=== PATIENT | male | born 1950 | race Caucasian/White ===

== ENCOUNTER → 2020-05-07 13:54 | Outpatient (BNVA) | payer MEDICARE, MEDICAID, SELFPAY | PROVIDERS: PCP Internal Medicine; Referring Provider Internal Medicine; Visit Provider Internal Medicine Cardiovascular Disease | DX: I25.118 Atherosclerotic heart disease of native coronary artery with other forms of angina pectoris (principal); I10 Essential (primary) hypertension; Z79.02 Long term (current) use of antithrombotics/antiplatelets; Z98.62 Peripheral vascular angioplasty status | CPT/HCPCS: 99214 ==

== ENCOUNTER → 2020-11-02 12:48 | Outpatient (BNVA) | payer MEDICARE, MEDICAID, SELFPAY | PROVIDERS: PCP Internal Medicine; Visit Provider Internal Medicine Cardiovascular Disease | DX: I10 Essential (primary) hypertension (principal); I20.8 Other forms of angina pectoris | CPT/HCPCS: 93005; 99212 ==

== ENCOUNTER 2020-11-26 08:49 | Outpatient (REF) | payer MEDICARE, MEDICAID, SELFPAY ==
[2020-11-26 11:44] LABS: Hematocrit 42.4 % (42-52); Hemoglobin 14.2 g/dl (14.0-18.0); Mean Corpuscular HGB Conc 33.5 g/dl (31.0-36.0); Mean Corpuscular Hemoglobin 30.9 pg (27.0-33.0); Mean Corpuscular Volume 92.4 fL (80-98); Mean Platelet Volume 10.3 fL (9.4-12.4); Platelet Count 194 X10*3/uL (160-400); Red Blood Count 4.59 X10*6/uL (4.60-5.80); Red Cell Distribution Width 12.2 % (11.0-16.0); White Blood Count 5.3 X10*3/uL (4.8-10.8)
[2020-11-26 12:21] LABS: Alanine Aminotransferase 21 U/L (0-40); Albumin Level 4.3 g/dL (3.5-5.0); Alkaline Phosphatase 69 U/L (39-117); Anion Gap 13 (12-20); Aspartate Amino Transferase 20 U/L (5-37); Bilirubin Total 1.2 mg/dL (0.0-1.0); Blood Urea Nitrogen 12 mg/dL (9-16); Calcium 9.3 mg/dL (8.4-10.2); Carbon Dioxide 27 mmol/L (22-29); Chloride 104 mmol/L (96-108); Cholesterol 210 mg/dL; Estimated Glomerular Filt Rate > 60; Glucose Fasting 85 mg/dL (60-99); HDL Cholesterol 52 mg/dL; Iron 80 mcg/dL (45-160); LDL Cholesterol Calculated 148 mg/dl; Percent Iron Saturation 30 % (15-50); Sodium 140 mmol/L (135-145); Total Iron Binding Capacity 268 mcg/dL (228-428); Total Protein 7.3 g/dL (6.5-8.0); Triglycerides 50 mg/dL; Unsaturated Iron Binding 188 ug/dL
== END 2020-11-26 08:50 | disposition home or self-care (01) ==
LOC: HO.HMGCLDS 08:49
PROVIDERS: PCP Internal Medicine; Visit Provider Internal Medicine
DX: I25.10 Atherosclerotic heart disease of native coronary artery without angina pectoris (principal); I10 Essential (primary) hypertension; I20.8 Other forms of angina pectoris
CPT/HCPCS: 36415; 80053; 80061; 83540; 85027

== ENCOUNTER 2021-04-05 08:30 | Outpatient (REF) | payer MEDICARE, MEDICAID, SELFPAY ==
[2021-04-05 11:51] LABS: Cholesterol 161 mg/dL; HDL Cholesterol 53 mg/dL; LDL Cholesterol Calculated 99 mg/dl; Triglycerides 47 mg/dL
[2021-04-09 15:40] LABS: Transglutaminase IgA 1 U/mL
[2021-04-12 23:01] LABS: Endomysial IgA Antibody Negative (Negative)
== END 2021-04-05 08:31 | disposition home or self-care (01) ==
LOC: HO.HMGCLDS 08:30
PROVIDERS: PCP Internal Medicine; Visit Provider Internal Medicine
DX: K90.0 Celiac disease (principal); E78.5 Hyperlipidemia, unspecified
CPT/HCPCS: 36415; 80061; 83516; 86255; 86256

== ENCOUNTER → 2021-05-05 12:31 | Outpatient (BNVA) | payer MEDICARE, MEDICAID, SELFPAY | PROVIDERS: PCP Internal Medicine; Referring Provider Internal Medicine; Visit Provider Internal Medicine Cardiovascular Disease | DX: I25.10 Atherosclerotic heart disease of native coronary artery without angina pectoris (principal); I10 Essential (primary) hypertension | CPT/HCPCS: 99212 ==

== ENCOUNTER → 2021-05-12 08:24 | Outpatient (REF) | payer MEDICARE, MEDICAID, SELFPAY ==
--- NOTE | ~2021-05-12 | NM_ITS ---
Myocardial perfusion study Indication: Chest discomfort with prior CAD to evaluate for myocardial ischemia Technique: The patient was brought in for a Lexiscan perfusion study on 05/12/2021. Patient performed low-level exercise and was injected 0.4 mg of Lexiscan intravenously. Within a minute of injection, 25 mCi of sestamibi was given intravenously. Images were obtained using the SPECT gamma camera interlaced with the gating device. Images were obtained in supine position. Resting perfusion study was performed on 05/13/2021. Patient was administered 25 mCi of sestamibi intravenously at rest. Images were then obtained in supine position. Images obtained with and without CT attenuation. Total DLP 72 mGy-cm. Images were processed with the software and compared side to side in short axis, horizontal long axis and vertical long axis views. Findings: The stress perfusion study showed nonattenuated images show moderately reduced uptake in the basal and mid inferoseptal wall, mildly reduced uptake in the septum minimally reduced uptake in the basal anterior wall of the LV myocardium. Remainder of the LV myocardium is normally perfused, attenuation corrected images show mildly reduced uptake in the septum and minimally reduced uptake in the anterior wall of the LV myocardium.. The gated study shows normal LV systolic function with calculated LVEF of 55%. LV cavity is mildly dilated size. The gated study shows normal wall thickening and contraction of segments. Resting study shows nontender images show improved uptake in the septum and the basal anterior wall of the LV myocardium.. Gating at rest reveals normal cyst colic wall motion with ejection fraction at 55%. The findings are consistent with mild intensity inferoseptal and septal ischemia as well as subtle basal anterior ischemia. NM/NM cardiolite stress test Impression: 1. Myocardial perfusion imaging study shows inferoseptal and septal ischemia in LAD territory 2. Gated LVEF is 55% 3. Transient ischemic dilatation not present EKG is nondiagnostic for ischemia
--- NOTE | 2021-05-12 08:27 | CA_ITS ---
Acquisition Time: 2021-05-12 08:31:45 Total Exercise Time: 00:02:00 Test Indications: Screening for CAD Medications: AMLODIPINE/OLMESARTEN ASA CLONAZAPAM GABAPENTIN BUDESONIDE/FORMOTEROL ROSUVASTATIN Protocol: LEXISCAN Max HR: 086 BPM 56% of Pred: 151 BPM Max BP: 144/076 mmHG Max Work Load: 1.0 METS Test ordered as exercise nuclear stress test, when patient walked up onto [facility] was noted to have a rate related LBBB. Testing was then changed to a pharmacological nuclear stress test with Lexiscan while sitting, without anginal symptoms, with rate related LBBB, with normotensive response to injection, with nondiagnostic EKG for ischemia. Nuclear images pending. Test reviewed with Dr Williamson. Referred By: Isaias Yung Overread By: MERRILL TAYLOR
== END ==
LOC: HO.CARD 08:24
PROVIDERS: PCP Internal Medicine; Visit Provider Internal Medicine Cardiovascular Disease
DX: I25.10 Atherosclerotic heart disease of native coronary artery without angina pectoris (principal)
CPT/HCPCS: 78452; 93017; A9500; J0280; J2785

== ENCOUNTER 2021-05-27 10:55 | Outpatient (REF) | payer MEDICARE, MEDICAID, SELFPAY ==
[2021-05-27 11:07] LABS: MANUAL DIFF FLAG NO
[2021-05-27 11:36] LABS: Basophils Percent Auto 0.2 % (0-2); Eosinophils Absolute Auto 0.1 X10*3/uL (0.0-0.4); Eosinophils Percent Auto 1.3 % (0-4); Hemoglobin 14.8 g/dl (14.0-18.0); Imm Gran Abs Auto 0.02 X10*3/uL (0.00-0.03); Imm Gran Pct Auto 0.4 % (0.0-0.4); Lymphocytes Absolute Auto 0.9 X10*3/uL (1.2-4.9); Mean Corpuscular HGB Conc 34.4 g/dl (31.0-36.0); Mean Corpuscular Hemoglobin 31.6 pg (27.0-33.0); Mean Corpuscular Volume 91.7 fL (80.0-98.0); Mean Platelet Volume 9.7 fL (9.4-12.4); Monocytes Absolute Auto 0.4 X10*3/uL (0.1-1.2); Monocytes Percent Auto 9.6 % (2-11); Neutrophils Absolute Auto 3.05 x10*3/uL (2.0-8.3); Neutrophils Percent Auto 68.5 % (45-73); Platelet Count 184 X10*3/uL (160-400); Red Blood Count 4.69 X10*6/uL (4.60-5.80); Red Cell Distribution Width 12.6 % (11.0-16.0); White Blood Count 4.5 X10*3/uL (4.8-10.8)
[2021-05-27 11:46] LABS: INTERNATIONAL NORM RATIO 1.2 (0.9-1.1); Prothrombin Time 13.6 SEC (9.9-13.0)
[2021-05-27 12:04] LABS: Anion Gap 11 (12-20); Blood Urea Nitrogen 12 mg/dL (9-16); Calcium 9.8 mg/dL (8.4-10.2); Carbon Dioxide 29 mmol/L (22-29); Chloride 107 mmol/L (96-108); Estimated Glomerular Filt Rate > 60; Glucose Fasting 106 mg/dL (60-99); Potassium 4.1 mmol/L (3.3-5.1); Sodium 143 mmol/L (135-145)
== END 2021-05-27 10:56 | disposition home or self-care (01) ==
LOC: HO.LAB 10:55
PROVIDERS: PCP Internal Medicine; Visit Provider Internal Medicine Cardiovascular Disease
DX: I25.10 Atherosclerotic heart disease of native coronary artery without angina pectoris (principal)
CPT/HCPCS: 36415; 80048; 85025; 85610

== ENCOUNTER → 2021-08-19 12:58 | Outpatient (BNVA) | payer MEDICARE, MEDICAID, SELFPAY | PROVIDERS: PCP Internal Medicine; Referring Provider Internal Medicine; Visit Provider Internal Medicine Cardiovascular Disease | DX: I25.10 Atherosclerotic heart disease of native coronary artery without angina pectoris (principal); I10 Essential (primary) hypertension | CPT/HCPCS: 93005; 99212 ==

== ENCOUNTER 2021-08-30 13:03 | Day surgery (SDC) | payer MEDICARE, MEDICAID, SELFPAY ==
[2021-08-25 13:12] VITALS: BMI 21.4
--- NOTE | 2021-08-27 13:23 | HO.ANESPROP2 ---
Documented by User: Vivienne Dalal NP 08/27/21 13:25 HPI - Anesthesia Eval Consult details Narrative: 71yo M for ?Upper Endoscopy with Balloon Dilitation and Colonoscopy Stable at 07/2021 Cardiol visit: He had chest pain and abnormal stress test for which he underwent cardiac catheterization which showed patent stent in the LAD without any significant coronary disease.? He has been doing well and has no exertional chest discomfort.? No shortness of breath.? PMFSH Active Problems Active Problems: All Active Problems (Updated 08/25/21 @ 13:14 by Shiela Robles RN) Status post angioplasty (Acute) COPD (chronic obstructive pulmonary disease) (Acute) Abnormal stress test (Acute) Esophageal stricture (Acute) Celiac disease (Acute) Insomnia (Acute) Hyperlipidemia (Acute) Anxiety (Acute) Coronary artery disease (Acute) Stable angina (Acute) Hypertension (Acute) Past Medical History Medical History (Updated 08/25/21 @ 13:14 by Shiela Robles RN) Anxiety Celiac disease COPD (chronic obstructive pulmonary disease) Coronary artery disease COVID-19 vaccine series completed Esophageal stricture HTN (hypertension) Hyperlipidemia Hypertension Insomnia Stable angina Family History Family History Father Colon cancer Mother Cancer Paternal Grandfather Cancer Surgical History Surgical History (Updated 08/24/21 @ 15:47 by Shiela Robles RN) H/O colonoscopy History of coronary artery stent placement History of esophagogastroduodenoscopy (EGD) Social History Social History Housing: House Are you a primary critical care physician assistant to a significant other at home: No Do you presently have visiting nurse or other home services: No Patient Tobacco Use Status: Never used Tobacco Use of substances other than those prescribed or required for medical reasons: No Have you been hit, kicked, punched, or otherwise hurt by someone within the past year? If so, by whom?: No Are you DNR?: No Advance Directives: No (unknown) Advance Directives Information Provided: Yes (brochure mailed) Advance Directives on File: No Recently lost weight without trying: No Eating poorly because of decreased appetite: No Nutrition Risks: No Nutritional Risk Current occupational status: retired Meds Allergies Allergy/AdvReac Type Severity Reaction Status Date / Time atropine [ATROPINE] Allergy Unknown SEIZURE Verified 08/19/21 13:18 Home Medications Medication Instructions Recorded Confirmed Last Taken Type aspirin 81 mg tablet,delayed 81 mg PO DAILY 05/07/20 08/25/21 Unknown History release (Adult Low Dose Aspirin) clonazepam 1 mg tablet 1 mg PO BEDTIME 08/19/21 08/25/21 Unknown History gabapentin 300 mg capsule 300 mg PO DAILY PRN 08/19/21 08/25/21 Unknown History Exam Exam Date and Time: August 27, 2021 1323 Height,Weight and Vital Signs: Height 5 ft 7 in Weight 62.142 kg Pertinent Lab Results Pertinent Lab Results: Laboratory Tests 05/27/21 05/27/21 11:02 11:02 WBC 4.5 L Hgb 14.8 Hct 43.0 Plt Count 184 Sodium 143 Potassium 4.1 Chloride 107 Carbon Dioxide 29 BUN 12 Creatinine 1.18 Narrative Narrative: EKG 07/2021 Sinus rhythm 61 beats per minute, incomplete left bundle-branch block, left ventricular hypertrophy, QT interval 438 Assessment and Plan Assessment Anesthesia Assessment: Chart Reviewed Documented by User: Jim Lopez 08/30/21 16:45 PMFSH Past Medical History Medical History (Updated 08/25/21 @ 13:14 by Shiela Robles RN) Anxiety Celiac disease COPD (chronic obstructive pulmonary disease) Coronary artery disease COVID-19 vaccine series completed Esophageal stricture HTN (hypertension) Hyperlipidemia Hypertension Insomnia Stable angina Family History Family History Father Colon cancer Mother Cancer Paternal Grandfather Cancer Family history of problems with anesthesia: No Surgical History Surgical History (Updated 08/24/21 @ 15:47 by Shiela Robles RN) H/O colonoscopy History of coronary artery stent placement History of esophagogastroduodenoscopy (EGD) History of Problems with Anesthesia: No Social History Social History Housing: House Are you a primary critical care physician assistant to a significant other at home: No Do you presently have visiting nurse or other home services: No Patient Tobacco Use Status: Never used Tobacco Use of substances other than those prescribed or required for medical reasons: No Have you been hit, kicked, punched, or otherwise hurt by someone within the past year? If so, by whom?: No Are you DNR?: No Advance Directives: No (unknown) Advance Directives Information Provided: Yes (brochure mailed) Advance Directives on File: No Recently lost weight without trying: No Eating poorly because of decreased appetite: No Nutrition Risks: No Nutritional Risk Current occupational status: retired Meds Allergies Allergy/AdvReac Type Severity Reaction Status Date / Time atropine [ATROPINE] Allergy Unknown SEIZURE Verified 08/19/21 13:18 Home Medications Medication Instructions Recorded Confirmed Last Taken Type aspirin 81 mg tablet,delayed 81 mg PO DAILY 05/07/20 08/25/21 Unknown History release (Adult Low Dose Aspirin) clonazepam 1 mg tablet 1 mg PO BEDTIME 08/19/21 08/25/21 Unknown History gabapentin 300 mg capsule 300 mg PO DAILY PRN 08/19/21 08/25/21 Unknown History Exam Airway Mallampati Class: III Neck ROM: Full Denture: Upper and Lower Loose/Missing/Broken Teeth: Yes (Implants ) Heart: rrr Lungs: bl breath sounds Assessment and Plan Final Anesthetic Review Family History of Problems with Anesthesia: No History of Problems with Anesthesia: No NPO: Yes ASA Class: III Final Preanesthetic Review: Meds/Lorenzogs Chart Reviewed and Consent Obtained/Reviewed Patient Risk: High Procedure Risk: Intermediate Anesthetic Plan Anesthetic Plan: MAC: Disposition: Standard PACU
[2021-08-30 13:42] VITALS: BP 139/87; PULSE 71; RESP 18; TEMP 36.8; O2SAT 97
[2021-08-30] MEDS: Lactated Ringers 1,000 ML 80 ML IVCONT (14:30)
[2021-08-30 15:54] VITALS: BP 104/55; PULSE 49; RESP 20; TEMP 36.9; O2SAT 100
--- NOTE | 2021-08-30 15:55 | PM.OP ---
Brief Operative Note Date of Service: 08/30/21 Pre-op diagnosis: Dysphagia, Screening Post-op diagnosis: other (Esophagitis/Esophageal stricture, Gastric ulcers, Gastritis/Duodenitis, Diverticulosis) Procedure: EGD with biopsies and Balloon dilation with a 15-16.5-18mm esophageal balloon, Colonoscopy to the cecum and TI Surgeon: Santino Parisi Anesthesia: MAC Was an Photographic Equipment Inspector used for this Procedure?: No Estimated blood loss (mL): 3.0 Pathology: other (A. Gastric antrum B. Gastric ulcers C. EG Junction at 35cm) Condition: stable Disposition: PACU
[2021-08-30 16:10] VITALS: BP 116/72; PULSE 51; RESP 16; O2SAT 98
[2021-08-30 16:25] VITALS: BP 104/65; PULSE 49; RESP 16; TEMP 36.3; O2SAT 98
--- NOTE | 2021-08-31 01:22 | OP_ITS ---
SURGEON: Santino Parisi MD INDICATIONS: The patient presents for evaluation of dysphagia and previous history of esophageal stricture, as well as colorectal cancer screening and family history of colon cancer. Full consent has been obtained from him for both procedures, including risks of bleeding and perforation. PREOPERATIVE DIAGNOSIS: POSTOPERATIVE DIAGNOSIS: PROCEDURE PERFORMED: Esophagogastroduodenoscopy with biopsies, and balloon dilation of esophageal stricture, and colonoscopy of the cecum and terminal ileum. ESTIMATED BLOOD LOSS: COMPLICATIONS: ANESTHESIA: Medication used, monitored anesthesia care. ASSISTANTS: SPECIMENS: PREOPERATIVE DIAGNOSES: Dysphagia, family history of colon cancer, and colorectal cancer screening. POSTOPERATIVE DIAGNOSES: Dysphagia, family history of colon cancer, and colorectal cancer screening, gastric ulcers, esophagitis, esophageal stricture, hiatal hernia, gastritis, duodenitis, diverticulosis, and internal hemorrhoids. DESCRIPTION OF PROCEDURE: Patient was placed in the left lateral decubitus position. The Olympus video gastroscope was passed in the posterior oropharynx and upper esophagus under direct vision. The scope was passed slowly into the distal esophagus. The gastroesophageal junction appeared at 35 cm. This area was notable for edema, esophagitis, and a mild stricture. There was no evidence of any ulceration or mass. There was no gross evidence of Baker's mucosa. The scope did easily enter the stomach. There was a small hiatal hernia. The scope was advanced to pylorus and the duodenum was cannulated at the descending portion. The duodenum including the bulb was carefully inspected. There was evidence of erosive duodenitis in the duodenal bulb, but no ulceration, bleeding, nor mass. The scope was withdrawn back to the stomach. The gastric antrum and body had several shallow appearing ulcers with some surrounding edema and friability. There was also associated gastritis. The ulcer craters appeared clean, without any sign of visible vessel nor bleeding. They appeared to be grossly benign. There was good peristalsis. The scope was retroflexed, visualizing the proximal stomach carefully, which appeared normal, without any sign of mass or ulceration. Scope was straightened. Multiple biopsies were obtained in the gastric antrum. I also obtained multiple biopsies from the margins of the ulcers. The scope was withdrawn back in the esophagus. Given the symptomatology, I did use a [employer] incremental balloon to dilate the gastroesophageal junction from 15 mm to 16.5 mm to 18 mm at the recommended pressures for between 30 and 60 seconds each. Post dilation, there was heme noted and definite disruption of the stricture. I also obtained biopsies at the EG junction at 35 cm. The scope was then withdrawn from the patient. The remainder of the esophagus appeared normal. He tolerated the procedure well. He was turned around for the colonoscopy. The digital rectal exam revealed no abnormalities. The Olympus video pediatric colonoscope was entered into the rectum and advanced easily to the cecum. Once in the cecum, I did identify normal-appearing cecal pouch with appendiceal orifice and a normal-appearing ileocecal valve. The terminal ileum was cannulated and appeared normal. The scope was withdrawn back into the colon. The entire cecum and ileocecal valve appeared normal. The scope was slowly withdrawn, assessing all mucosal surfaces carefully. Preparation was excellent. I did not visualize any sign of polyps, colitis, or angiodysplasia. There was a mild amount of sigmoid diverticulosis. In the rectum, the scope was retroflexed, visualizing internal hemorrhoids, but no other pathology. The rectal mucosa appeared normal. The scope was straightened and withdrawn from the patient. He tolerated both procedures well and was returned to recovery area in stable condition. IMPRESSION: 1. Gastric ulcers. 2. Gastritis. 3. Duodenitis. 4. Hiatal hernia. 5. Esophagitis with esophageal stricture, status post balloon dilation. 6. Diverticulosis. 7. Internal hemorrhoids. PLAN: The results of the pathology will be checked. Given the findings in the upper endoscopy, I shall start him on omeprazole 40 mg daily as he does have to go back on his aspirin for his underlying coronary artery disease. If Helicobacter pylori is present in the gastric biopsies, I would recommend treating that as well. He was advised to continue omeprazole long-term and avoid all other NSAIDs. He was advised to see me in 2 to 3 months for a followup visit. Given the family history of colon cancer in his father, I would recommend a followup colonoscopy in 5 years for further screening as well. MD [facility] / [id number]
== END 2021-08-30 17:01 | disposition home or self-care (01) ==
PROVIDERS: PCP Internal Medicine; Visit Provider Internal Medicine
PROC: (CPT 43249; principal; 2021-08-30 14:00)
PROC: 0DJD8ZZ Inspection of Lower Intestinal Tract, Via Natural or Artificial Opening Endoscopic (ICD-10-PCS; CPT 45378; 2021-08-30 14:00)
DX: Z12.11 Encounter for screening for malignant neoplasm of colon (principal); Z80.0 Family history of malignant neoplasm of digestive organs; K57.30 Diverticulosis of large intestine without perforation or abscess without bleeding; K64.8 Other hemorrhoids; R13.19 Other dysphagia; K22.2 Esophageal obstruction; K25.9 Gastric ulcer, unspecified as acute or chronic, without hemorrhage or perforation; K29.50 Unspecified chronic gastritis without bleeding; K29.80 Duodenitis without bleeding; K20.80 Other esophagitis without bleeding; K44.9 Diaphragmatic hernia without obstruction or gangrene; I25.10 Atherosclerotic heart disease of native coronary artery without angina pectoris; Z98.61 Coronary angioplasty status; I10 Essential (primary) hypertension; J44.9 Chronic obstructive pulmonary disease, unspecified; E78.5 Hyperlipidemia, unspecified; Z79.51 Long term (current) use of inhaled steroids; Z79.82 Long term (current) use of aspirin; Z79.899 Other long term (current) drug therapy
CPT/HCPCS: 43249; 43239; G0105; 88305; 88342; C1726

== ENCOUNTER 2021-12-02 08:52 | Outpatient (REF) | payer MEDICARE, MEDICAID, SELFPAY ==
[2021-12-02 11:31] LABS: Hematocrit 42.4 % (42.0-52.0); Hemoglobin 14.3 g/dl (14.0-18.0); Mean Corpuscular HGB Conc 33.7 g/dl (31.0-36.0); Mean Platelet Volume 10.6 fL (9.4-12.4); Platelet Count 187 X10*3/uL (160-400); Red Blood Count 4.61 X10*6/uL (4.60-5.80); Red Cell Distribution Width 12.2 % (11.0-16.0); White Blood Count 4.5 X10*3/uL (4.8-10.8)
[2021-12-02 12:24] LABS: Vitamin D 25-OH Total 38.1 ng/mL (>30)
[2021-12-02 12:32] LABS: Alanine Aminotransferase 24 U/L (0-40); Albumin Level 4.3 g/dL (3.5-5.0); Alkaline Phosphatase 51 U/L (39-117); Anion Gap 14 (12-20); Aspartate Amino Transferase 23 U/L (5-37); Bilirubin Total 1.1 mg/dL (0.0-1.0); Blood Urea Nitrogen 15 mg/dL (9-16); Calcium 9.6 mg/dL (8.4-10.2); Carbon Dioxide 26 mmol/L (22-29); Chloride 106 mmol/L (96-108); Cholesterol 160 mg/dL; Estimated Glomerular Filt Rate > 60; Glucose Fasting 94 mg/dL (60-99); HDL Cholesterol 53 mg/dL; LDL Cholesterol Calculated 96 mg/dl; Potassium 4.8 mmol/L (3.3-5.1); Sodium 141 mmol/L (135-145); Total Protein 7.3 g/dL (6.5-8.0); Triglycerides 58 mg/dL
== END 2021-12-02 08:53 | disposition home or self-care (01) ==
LOC: HO.HMGCLDS 08:52
PROVIDERS: PCP Internal Medicine; Visit Provider Internal Medicine
DX: I25.10 Atherosclerotic heart disease of native coronary artery without angina pectoris (principal); E78.5 Hyperlipidemia, unspecified; I10 Essential (primary) hypertension; K22.2 Esophageal obstruction
CPT/HCPCS: 36415; 80053; 80061; 82306; 85027

== ENCOUNTER → 2022-04-25 10:53 | Outpatient (BNVA) | payer MEDICARE, MEDICAID, SELFPAY | PROVIDERS: PCP Internal Medicine; Referring Provider Internal Medicine; Visit Provider Internal Medicine Cardiovascular Disease | DX: I20.8 Other forms of angina pectoris (principal); I10 Essential (primary) hypertension; Z79.82 Long term (current) use of aspirin; Z79.899 Other long term (current) drug therapy | CPT/HCPCS: 93005; 99212 ==

== ENCOUNTER 2022-06-14 15:32 | Emergency (ER) | payer MEDICARE, MEDICAID, SELFPAY ==
[2022-06-14 15:35] VITALS: BP 173/93; PULSE 104; RESP 18; TEMP 37.3; O2SAT 96; BMI 23.7
--- NOTE | 2022-06-14 15:42 | ED.GENADULT ---
HPI - General Adult General Chief complaint: General Medical <Santino Boucher MD - Last Filed: 06/14/22 15:44> Stated complaint: +covid..fever headache cough <Santino Boucher MD - Last Filed: 06/14/22 15:44> Time Seen by Provider: 06/14/22 16:02 <Santino Boucher MD - Last Filed: 06/14/22 15:44> Source: patient <Kaylah Guadarrama NP - Last Filed: 06/14/22 17:16> Mode of arrival: ambulatory <Kaylah Guadarrama NP - Last Filed: 06/14/22 17:16> Limitations: no limitations <Kaylah Guadarrama NP - Last Filed: 06/14/22 17:16> History of Present Illness HPI narrative: 72-year-old male patient with past medical history COPD, CAD, hyperlipidemia, hypertension, and esophageal stricture presents to the emergency department today after testing positive for COVID with a home test. He states he has been feeling tired, has a cough, runny nose, vague body aches, nausea, and has been having fevers. Highest fever at home has been 100.5. He denies taking any medications as treatment prior to coming to the emergency department. Medication list verified with patient. Patient denies any history of liver or kidney disease. Currently he denies any chest pain, shortness of breath, chills, dizziness, changes in gait, changes in mental status, or vomiting. He states he is looking for treatment for COVID at the suggestion of his daughter who suggested he presents to the emergency department. Ariel safety information in fact she provided to patient for review. We will review current medications and possible side effects and contraindications to antiviral treatment. Monoclonal antibodies discussed with Pt also. <Kaylah Guadarrama NP - Last Filed: 06/14/22 17:16> Onset (ago): day(s) (2) <Kaylah Guadarrama NP - Last Filed: 06/14/22 17:16> Treatments prior to arrival: none <Kaylah Guadarrama NP - Last Filed: 06/14/22 17:16> Related Data Home medications: Home Medications Medication Instructions Recorded Confirmed aspirin 81 mg tablet,delayed 81 mg PO DAILY 05/07/20 04/25/22 release (Adult Low Dose Aspirin) clonazepam 1 mg tablet 1 mg PO BEDTIME 08/19/21 04/25/22 gabapentin 300 mg capsule 300 mg PO DAILY PRN Pain 08/19/21 04/25/22 omeprazole 20 mg capsule,delayed 20 mg PO DAILY 04/25/22 04/25/22 release Previous Rx's Medication Instructions Recorded rosuvastatin 40 mg tablet See Rx Instructions PO DAILY #90 01/19/21 tabs amlodipine 10 mg-olmesartan 40 mg 1 tab PO DAILY #90 tabs 04/27/22 tablet Symbicort 160 mcg-4.5 2 puff inhalation BID #10.2 grams 06/07/22 mcg/actuation HFA aerosol inhaler (budesonide-formoterol) acetaminophen 325 mg capsule 650 mg PO Q6H PRN fever or pain 7 06/14/22 (Tylenol) days #30 caps ibuprofen 400 mg tablet 400 mg PO Q8H #30 tabs 06/14/22 <Santino Boucher MD - Last Filed: 06/14/22 15:44> Allergies/adverse reactions: Allergies Allergy/AdvReac Type Severity Reaction Status Date / Time atropine [ATROPINE] Allergy Unknown SEIZURE Verified 04/25/22 10:56 <Santino Boucher MD - Last Filed: 06/14/22 15:44> Review of Systems Review of Systems: Yes all other systems are reviewed and are negative <Kaylah Guadarrama NP - Last Filed: 06/14/22 17:16> Constitutional: Constitutional: Reports no additional constitutional complaints, Reports body ache(s), Denies chills, Denies fatigue, Reports fever(s), Denies frequent falls, Reports headache(s), Denies poor appetite, Denies weight gain and Denies weight loss <Kaylah Guadarrama NP - Last Filed: 06/14/22 17:16> Eyes: Eyes: Reports no additional eye complaints, Denies change in vision and Denies loss of vision <Kaylah Guadarrama NP - Last Filed: 06/14/22 17:16> ENT: Reports system reviewed and no additional complaints, except as documented, Reports Normal hearing present, Denies vertigo, Denies dizziness, Reports headache(s), Reports nasal discharge and Denies disequilibrium <Kaylah Floresiennik, ADMISSIONS DIRECTOR - Last Filed: 06/14/22 17:16> Cardiovascular: Cardiovascular: Reports no additional cardiovascular complaints, Denies chest pain, Denies edema and Denies dyspnea <Kaylah Pluciennik, ADMISSIONS DIRECTOR - Last Filed: 06/14/22 17:16> Respiratory: Respiratory: Reports no additional respiratory complaints, Denies change in phlegm color, Denies chest congestion, Reports cough and Denies dyspnea <Kaylah Pluciennik, ADMISSIONS DIRECTOR - Last Filed: 06/14/22 17:16> Gastrointestinal: Gastrointestinal: Reports no additional gastrointestinal complaints, Denies constipation, Denies diarrhea, Reports nausea and Denies vomiting <Kaylah Pluciennik, ADMISSIONS DIRECTOR - Last Filed: 06/14/22 17:16> Genitourinary: Genitourinary: Reports no additional male genitourinary complaints <Kaylah Pluciennik, ADMISSIONS DIRECTOR - Last Filed: 06/14/22 17:16> Musculoskeletal: Musculoskeletal: Reports no additional musculoskeletal complaints, Reports myalgias, Reports arthralgias (baseline per patient), Denies numbness and Denies tingling <Kaylah Pluciennik, ADMISSIONS DIRECTOR - Last Filed: 06/14/22 17:16> Integumentary/Breasts: Skin/Breast: Reports system reviewed and no additional complaints, except as docu <Kaylah Pluciennik, ADMISSIONS DIRECTOR - Last Filed: 06/14/22 17:16> Neurologic: Reports system reviewed and no additional complaints, except as documented, Reports Normal hearing present, Denies vertigo, Denies dizziness, Denies frequent falls, Reports headache(s), Denies loss of vision, Denies memory loss, Denies numbness, Denies tingling, Denies tremor(s) and Denies disequilibrium <Kaylah Pluciennik, ADMISSIONS DIRECTOR - Last Filed: 06/14/22 17:16> Psychiatric: Psychiatric: Reports no additional psychiatric complaints and Denies memory loss <Kaylah Pluciennik, ADMISSIONS DIRECTOR - Last Filed: 06/14/22 17:16> Endocrine: Endocrine: Reports no additional endocrine complaints, Denies fatigue, Denies polyphagia, Denies polydipsia and Denies polyuria <Kaylah Pluciennik, ADMISSIONS DIRECTOR - Last Filed: 06/14/22 17:16> Hematologic/Lymphatic: Hematologic/Lymphatic: Reports no additional hematologic/lymphatic complaints <Kaylah Guadarrama NP - Last Filed: 06/14/22 17:16> [facility] Past Medical History Attestation statement: The following information was validated with the patient. <Kaylah Guadarrama NP - Last Filed: 06/14/22 17:16> Source: old records reviewed and obtained from family <Kaylah Guadarrama NP - Last Filed: 06/14/22 17:16> Medical History: Medical History Anxiety Celiac disease COPD (chronic obstructive pulmonary disease) Coronary artery disease COVID-19 vaccine series completed Esophageal stricture HTN (hypertension) Hyperlipidemia Hypertension Insomnia Stable angina <Santino Boucher MD - Last Filed: 06/14/22 15:44> Surgical History: Surgical History H/O colonoscopy History of coronary artery stent placement History of esophagogastroduodenoscopy (EGD) <Santino Boucher MD - Last Filed: 06/14/22 15:44> Family History Family History: Family History Father Colon cancer Mother Cancer Paternal Grandfather Cancer <Santino Boucher MD - Last Filed: 06/14/22 15:44> Social History Social History: Social History Housing: House Are you a primary respiratory care practitioner to a significant other at home: No Do you presently have visiting nurse or other home services: No Patient Tobacco Use Status: Never used Tobacco e-Cigarette/Vaping Use: Never Used Advance Directives: No Advance Directives Information Provided: No Current occupational status: retired Cognitive needs: No Hearing needs: No Vision needs: No <Santino Boucher MD - Last Filed: 06/14/22 15:44> Physical Exam ED Vital Signs: Vital Signs - 24 hr 06/14/22 15:35 06/14/22 16:34 Temperature 99.2 F Pulse Rate 104 H 100 Respiratory Rate 18 19 Blood Pressure 173/93 H 155/93 H Pulse Oximetry 96 94 Oxygen Delivery Method Room Air BMI result Body Mass Index 23.7 <Santino Boucher MD - Last Filed: 06/14/22 15:44> Vital Signs - 24 hr 06/14/22 15:35 06/14/22 16:34 Temperature 99.2 F Pulse Rate 104 H 100 Respiratory Rate 18 19 Blood Pressure 173/93 H 155/93 H Pulse Oximetry 96 94 Oxygen Delivery Method Room Air BMI result Body Mass Index 23.7 <Kaylah Guadarrama NP - Last Filed: 06/14/22 17:16> Const General: cooperative, comfortable, no acute distress, alert and awake <Kaylah Guadarrama NP - Last Filed: 06/14/22 17:16> Nutritional Appearance: well nourished <Kaylah Guadarrama NP - Last Filed: 06/14/22 17:16> Orientation/consciousness: patient oriented x3 <Kaylah Guadarrama NP - Last Filed: 06/14/22 17:16> Limitations: no limitations <Kaylah Guadarrama NP - Last Filed: 06/14/22 17:16> HENSC Head: Yes normal to inspection, Yes normocephalic and Yes atraumatic <Kaylah Guadarrama NP - Last Filed: 06/14/22 17:16> Ears: hearing grossly normal bilaterally and external ears normal <Kaylah Guadarrama NP - Last Filed: 06/14/22 17:16> General nose exam: Normal external nose present <Kaylah Guadarrama NP - Last Filed: 06/14/22 17:16> Face and sinus: Yes normal facial exam <Kaylah Guadarrama NP - Last Filed: 06/14/22 17:16> Mouth: Normal oral and palatal mucosa present <Kaylah Guadarrama NP - Last Filed: 06/14/22 17:16> Eyes General: appearance normal, both eyes and all related structures <Kaylah Guadarrama NP - Last Filed: 06/14/22 17:16> Alignment and Position: alignment normal <Kaylah Guadarrama NP - Last Filed: 06/14/22 17:16> Periorbital: periorbital findings normal <Kaylah Thierry, ADMISSIONS DIRECTOR - Last Filed: 06/14/22 17:16> Eyelids: Yes eyelids normal <Kaylah Thierry, ADMISSIONS DIRECTOR - Last Filed: 06/14/22 17:16> Conjunctivae: conjunctivae normal <Kaylah Thierry, ADMISSIONS DIRECTOR - Last Filed: 06/14/22 17:16> Sclerae: sclerae normal <Kaylah Thierry, ADMISSIONS DIRECTOR - Last Filed: 06/14/22 17:16> Pupils: Equal, round and reactive pupils present <Kaylah Thierry, ADMISSIONS DIRECTOR - Last Filed: 06/14/22 17:16> EOM: EOMs intact bilaterally <Kaylah Thierry, ADMISSIONS DIRECTOR - Last Filed: 06/14/22 17:16> Neck Neck: Yes normal visual inspection and Yes full ROM <Kaylah Thierry, ADMISSIONS DIRECTOR - Last Filed: 06/14/22 17:16> Chest Chest palpation & inspection: normal inspection of the chest <Kaylah Guadarrama, ADMISSIONS DIRECTOR - Last Filed: 06/14/22 17:16> Resp Effort & Inspection: normal respiratory effort and able to speak in complete sentences <Kaylah Guadarrama, ADMISSIONS DIRECTOR - Last Filed: 06/14/22 17:16> Auscultation: clear to auscultation bilaterally <Kaylahmelecio Guadarrama, ADMISSIONS DIRECTOR - Last Filed: 06/14/22 17:16> Cardio Rate: regular rate <Kaylah Guadarrama, ADMISSIONS DIRECTOR - Last Filed: 06/14/22 17:16> Rhythm: regular rhythm <Kaylah Thierry, ADMISSIONS DIRECTOR - Last Filed: 06/14/22 17:16> GI Inspection: Yes normal to inspection <Kaylah Thierry, ADMISSIONS DIRECTOR - Last Filed: 06/14/22 17:16> Auscultation: normal bowel sounds <Kaylah Thierry, ADMISSIONS DIRECTOR - Last Filed: 06/14/22 17:16> Back/Spine/Pelvis Cervical Spine: cervical ROM normal <Kaylah Thierry, ADMISSIONS DIRECTOR - Last Filed: 06/14/22 17:16> Thoracic/Lumbar Spine: thoraco-lumbar ROM normal <Kaylah Sandraannereginaldo, ADMISSIONS DIRECTOR - Last Filed: 06/14/22 17:16> Skin General skin exam: no rashes or lesions noted <Kaylah Sandraannereginaldo, ADMISSIONS DIRECTOR - Last Filed: 06/14/22 17:16> Neuro General: patient oriented x3, gait normal and moves all extremities <Kaylah Sandraannereginaldo, ADMISSIONS DIRECTOR - Last Filed: 06/14/22 17:16> Cranial nerves: Yes Equal, round and reactive pupils present, Yes Midline tongue present, Yes Normal hearing present, Yes Ability to bilaterally rotate head present and Yes Ability to bilaterally elevate shoulders present <Kaylah Plucannereginaldo, ADMISSIONS DIRECTOR - Last Filed: 06/14/22 17:16> Cognition (Neuro): normal cognition <Kaylah Thierry, ADMISSIONS DIRECTOR - Last Filed: 06/14/22 17:16> Gait exam (Neuro): Normal gait present <Kaylahmelecio Guadarrama, ADMISSIONS DIRECTOR - Last Filed: 06/14/22 17:16> Motor exam (neuro): 5/5 motor strength present throughout <Kaylah Sandracecy, ADMISSIONS DIRECTOR - Last Filed: 06/14/22 17:16> Sensory Exam: Normal double simultaneous stimulation for sensation <Kaylahmelecio Guadarrama, ADMISSIONS DIRECTOR - Last Filed: 06/14/22 17:16> Extrem General: Yes normal to inspection, Yes full ROM and Yes capillary refill normal <Kaylah Thierry, ADMISSIONS DIRECTOR - Last Filed: 06/14/22 17:16> Psych Appearance: grossly normal <Kaylahmelecio Guadarrama ADMISSIONS DIRECTOR - Last Filed: 06/14/22 17:16> Mental Status: mental status grossly normal <Kaylahmelecio Guadarrama, ADMISSIONS DIRECTOR - Last Filed: 06/14/22 17:16> Speech and movement: Normal speech and movement present <Kaylahshilpi Guadarrama, ADMISSIONS DIRECTOR - Last Filed: 06/14/22 17:16> Affect: normal affect <Kaylahshilpi Guadarrama, ADMISSIONS DIRECTOR - Last Filed: 06/14/22 17:16> Attitude: cooperative <Kaylah Guadarrama, ADMISSIONS DIRECTOR - Last Filed: 06/14/22 17:16> Thought process: Normal thought process present <Kaylah Guadarrama ADMISSIONS DIRECTOR - Last Filed: 06/14/22 17:16> Thought content: Normal thought content present <Kaylah Guadarrama NP - Last Filed: 06/14/22 17:16> Insight: Good insight present (Psych) <Kaylah Guadarrama NP - Last Filed: 06/14/22 17:16> Judgement: Good judgement present (Psych) <Kaylah Guadarrama NP - Last Filed: 06/14/22 17:16> Course Reevaluation(s) Reevaluation #1: 72 yo male with PMH of COPD presents to the ED with a positive COVID test. Does not admit to any significant additional symptoms except I don't feel good . Swabbed in triage for COVID, etc. <Santino Boucher MD - Last Filed: 06/14/22 15:44> Time: 15:44 <Santino Bocuher MD - Last Filed: 06/14/22 15:44> Medications Administered Discontinued Medications Generic Name Dose Route Start Last Admin Trade Name Freq PRN Reason Stop Dose Admin Acetaminophen 650 mg 06/14/22 16:18 06/14/22 16:29 Acetaminophen 325 Mg Tablet PO 06/14/22 16:19 650 mg ONCE ONE Administration <Santino Boucher MD - Last Filed: 06/14/22 15:44> Medications Administered Discontinued Medications Generic Name Dose Route Start Last Admin Trade Name Freq PRN Reason Stop Dose Admin Acetaminophen 650 mg 06/14/22 16:18 06/14/22 16:29 Acetaminophen 325 Mg Tablet PO 06/14/22 16:19 650 mg ONCE ONE Administration <Kaylah Guadarrama NP - Last Filed: 06/14/22 17:16> Medical Decision Making [facility] Narrative Medical decision making narrative: 72-year-old male patient presents the emergency department after testing COVID positive with an at-home test. He endorses fatigue, cough, clear nasal discharge, vague body aches, nausea and fever with T-max 100.5? at home and 99.5 any ED. 650 mg p.o. Tylenol invited for temperature management. Home medications reviewed with several medications contraindicated for Paxlovid antiviral therapy. Notified patient inability to take the antiviral medication and discussed further treatment options with a referral submitted to [facility] infusion therapy for monoclonal antibody infusion. HPI and physical exam not consistent with acute distress and conservative management COVID-19 symptoms discussed with patient. Patient educated on using Tylenol and/or ibuprofen for temperature management and analgesia with prescriptions for both sent to preferred pharmacy. Patient educated to increased p.o. fluids to avoid dehydration into monitor symptoms. Patient educated to return to the emergency department for shortness of breath, chest pain, vomiting, increased fever despite medication treatment, increased fatigue, dizziness, and any other symptoms that may be concerning. Recommended to follow-up with primary care provider for further management. Cleared for discharge. <Kaylah Guadarrama NP - Last Filed: 06/14/22 17:16> Lab Data Labs: Lab Results 06/14/22 Range/Units 15:42 Influenza Type A (PCR) NEGATIVE (Negative) Influenza Type B (PCR) NEGATIVE (Negative) RSV RNA Qual (PCR) NEGATIVE (Negative) SARS-CoV-2 RNA (RT-PCR) POSITIVE A (Negative) <Santino Boucher MD - Last Filed: 06/14/22 15:44> Lab Results 06/14/22 Range/Units 15:42 Influenza Type A (PCR) NEGATIVE (Negative) Influenza Type B (PCR) NEGATIVE (Negative) RSV RNA Qual (PCR) NEGATIVE (Negative) SARS-CoV-2 RNA (RT-PCR) POSITIVE A (Negative) <Kaylah Guadarrama NP - Last Filed: 06/14/22 17:16> Discharge Plan Discharge Clinical Impression: COVID-19 <Santino Boucher MD - Last Filed: 06/14/22 15:44> Patient Disposition: Home, Self-Care <Santino Boucher MD - Last Filed: 06/14/22 15:44> Additional Instructions: Referral to [facility] regarding possible Monoclonal Antibody therapy. The Infusion Center will contact you. Please call [phone] with questions. Isolation and Precautions for People with COVID-19 (CDC website) If you have COVID-19, you can spread the virus to others. There are precautions you can take to prevent spreading it to others: isolation, masking, and avoiding contact with?people who are at high risk of getting very sickhttps://www.cdc.gov/coronavirus/2019-ncov/your-health/egtvl-cpzejon-zzce-sick.html. Isolation is used to separate people with confirmed or suspected COVID-19 from those without COVID-19. These recommendations do not change based on?COVID-19 Community Levelshttps://www.cdc.gov/coronavirus/2019-ncov/your-health/wqjyf-do-fagcwv.html. If you have COVID-19, also see additional information on?treatmentshttps://www.cdc.gov/coronavirus/2019-ncov/your-health/ozqfszxthj-uqu-qbocyc-illness.html?that may be available to you. This information is intended for a general audience. Healthcare professionals should see?Ending Isolation and Precautions for People with COVID-19https://www.cdc.gov/coronavirus/2019-ncov/hcp/duration-isolation.html. This [facility] guidance is meant to supplement?not replace?any federal, state, local, territorial, or [place] health and safety laws, rules, and regulations. ?For Healthcare Professionals:?Ending Isolation and Precautions for People with COVID-19https://www.cdc.gov/coronavirus/2019-ncov/hcp/duration-isolation.html When to Isolate Regardless of vaccination status,?you should isolate from others when you have COVID-19. You should also isolate?if you are sick and suspect that you have COVID-19 but do not yet have?testhttps://www.cdc.gov/coronavirus/2019-ncov/symptoms-testing/testing.html?results.?If your results are positive, follow the full isolation recommendations below. If your results are negative, you can end your isolation. IF YOU TEST Negative You can end your isolation IF YOU TEST Positive Follow the full isolation recommendations below When you have COVID-19, isolation is counted in days, as follows: If you had no symptoms Day 0 is the day you were tested?(not the day you received your positive test result) Day 1 is the first full day?following the day you were tested If you develop?symptomshttps://www.cdc.gov/coronavirus/2019-ncov/symptoms-testing/symptoms.html?within 10 days of when you were tested, the?clock restarts at day 0 on the day of symptom onset If you had symptoms Day 0 of isolation is the day of symptom onset, regardless of when you tested positive Day 1 is the first full day?after the day your?symptomshttps://www.cdc.gov/coronavirus/2019-ncov/symptoms-testing/symptoms.html?started Isolation If you test positive for COVID-19,?stay home for at least 5 days and isolate from others in your home. You are?likely most infectious during these first 5 days. Wear a high-quality maskhttps://www.cdc.gov/coronavirus/2019-ncov/nbkxrqb-dlcyjhx-nenn/masks.html?if you must be around others at home and in public. Do not go places where you are unable to wear a mask. For travel guidance, see [facility]?s?Travel webpagehttps://www.cdc.gov/coronavirus/2019-ncov/travelers/index.html#ijt-u-ckiiee. Do not travelhttps://www.cdc.gov/coronavirus/2019-ncov/travelers/index.html#zkh-a-rheate. Stay home and separate from others as much as possible. Use a separate bathroom, if possible. Take steps to?improve ventilationhttps://www.cdc.gov/coronavirus/2019-ncov/vbishbx-xbvsujc-mwsl/prevention.html#ventilation?at home, if possible. Don?t share personal household items, like cups, towels, and utensils. Monitor your?symptomshttps://www.cdc.gov/coronavirus/2019-ncov/symptoms-testing/symptoms.html. If you have an?emergency warning signhttps://www.cdc.gov/coronavirus/2019-ncov/symptoms-testing/symptoms.html#Emergency?(like trouble breathing), seek emergency medical care immediately. Learn more about?what to do if you have COVID-19https://www.cdc.gov/coronavirus/2019-ncov/gr-qci-tat-sick/wbmsj-awnk-hiiy.html. Ending Isolation End isolation based on how serious your COVID-19 symptoms were.?Loss of taste and smell may persist for weeks or months after recovery and need not delay the end of isolation. If you had no symptoms You may end isolation after day 5. If you had symptoms and: Your symptoms are improving You?may end isolation after day 5?if: You are fever-free for 24 hours (without the use of fever-reducing medication). Your symptoms are not improving Continue to isolate?until: You are fever-free for 24 hours (without the use of fever-reducing medication). Your symptoms are improving.?1 If you had symptoms and had: Moderate illness?(you experienced shortness of breath or had difficulty breathing) You need to?isolate through day 10. Severe illness (you were hospitalized) or have a weakened immune system You need to?isolate through day 10. Consult your doctor?before ending isolation. Ending isolation without a viral test may not be an option for you. If you are unsure if your symptoms are moderate or severe or if you have a weakened immune system, talk to a healthcare provider for further guidance. Regardless of when you end isolation Until at least day 11: Avoid being around people who are more likely to get very sick from COVID-19. Remember to wear a high-quality mask when indoors around others at home and in public. Do not go places where you are unable to wear a mask until you are able to discontinue masking (see below). For travel guidance, see CDC?s?Travel webpagehttps://www.cdc.gov/coronavirus/2019-ncov/travelers/index.html#hwd-g-tbdaqe. Removing Your Mask After you have ended isolation, when you are feeling better?(no fever without the use of fever-reducing medications and symptoms improving), Wear your mask through day 10. OR If you have access to antigen tests, you should consider using them. With two sequential negative tests 48 hours apart, you may remove your mask sooner than day 10. Note: If your antigen test edtbopo3gezpj://www.cdc.gov/coronavirus/2019-ncov/your-health/isolation.html#ftn1?are positive, you may still be infectious. You should continue wearing a mask and wait at least 48 hours before taking another test. Continue taking antigen tests at least 48 hours apart until you have two sequential negative results. This may mean you need to continue wearing a mask and testing beyond day 10. After you have ended isolation, if your COVID-19 symptoms recur or worsen,?restart your isolation at day 0. Talk to a healthcare provider if you have questions about your symptoms or when to end isolation. <Santino Boucher MD - Last Filed: 06/14/22 15:44> Prescriptions: New acetaminophen [Tylenol] 325 mg capsule 650 mg PO Q6H PRN (Reason: fever or pain) 7 Days Qty: 30 0RF ibuprofen 400 mg tablet 400 mg PO Q8H Qty: 30 0RF No Action rosuvastatin 40 mg tablet See Rx Instructions PO DAILY Qty: 90 3RF Rx Instructions: 20mg 1 tablet PO daily; amlodipine-olmesartan 10-40 mg tablet 1 tab PO DAILY Qty: 90 4RF budesonide-formoterol [Symbicort] 160-4.5 mcg/actuation HFA aerosol inhaler 2 puff inhalation BID Qty: 10.2 5RF clonazepam 1 mg tablet 1 mg PO BEDTIME gabapentin 300 mg capsule 300 mg PO DAILY PRN (Reason: Pain) aspirin [Adult Low Dose Aspirin] 81 mg tablet,delayed release (DR/EC) 81 mg PO DAILY omeprazole 20 mg capsule,delayed release(DR/EC) 20 mg PO DAILY <Santino Boucher MD - Last Filed: 06/14/22 15:44> Referrals: Marleni Karimi MD [Primary Care Provider] - <Santino Boucher MD - Last Filed: 06/14/22 15:44> Interventions: ED Discharge Assessment Last Done: 06/14/22 16:49 <Santino Boucher MD - Last Filed: 06/14/22 15:44> Discharge Date/Time: 06/14/22 16:53 <Santino Boucher MD - Last Filed: 06/14/22 15:44> Print Language: Japanese <Santino Boucher MD - Last Filed: 06/14/22 15:44>
[2022-06-14] MEDS: Acetaminophen 325 MG TABLET 650 MG PO (16:29)
[2022-06-14 16:34] VITALS: BP 155/93; PULSE 100; RESP 19; O2SAT 94
[2022-06-14 16:35] LABS: Influenza A PCR NEGATIVE (Negative); Influenza B PCR NEGATIVE (Negative); Resp Syncy Virus RNA Qual PCR NEGATIVE (Negative); SARS COV2 PCR INHOUSE POSITIVE (Negative)
== END 2022-06-14 16:53 | disposition home or self-care (01) ==
PROVIDERS: Emergency Medicine; Emergency Provider Emergency Medicine; PCP Internal Medicine
DX: U07.1 COVID-19 (principal); R50.9 Fever, unspecified; Z79.899 Other long term (current) drug therapy
CPT/HCPCS: 0241U; 99283

== ENCOUNTER 2022-08-02 08:33 | Outpatient (REF) | payer MEDICARE, MEDICAID, SELFPAY ==
[2022-08-02 11:19] LABS: MANUAL DIFF FLAG NO
[2022-08-02 11:39] LABS: Basophils Percent Auto 0.4 % (0-2); Eosinophils Absolute Auto 0.1 X10*3/uL (0.0-0.4); Eosinophils Percent Auto 2.9 % (0-4); Hematocrit 46.3 % (42.0-52.0); Hemoglobin 15.5 g/dl (14.0-18.0); Imm Gran Abs Auto 0.01 X10*3/uL (0.00-0.03); Imm Gran Pct Auto 0.2 % (0.0-0.4); Lymphocytes Absolute Auto 1.4 X10*3/uL (1.2-4.9); Lymphocytes Percent Auto 30.1 % (20-40); Mean Corpuscular HGB Conc 33.5 g/dl (31.0-36.0); Mean Corpuscular Hemoglobin 30.7 pg (27.0-33.0); Mean Corpuscular Volume 91.7 fL (80.0-98.0); Monocytes Absolute Auto 0.6 X10*3/uL (0.1-1.2); Monocytes Percent Auto 12.7 % (2-11); Neutrophils Absolute Auto 2.4 x10*3/uL (2.0-8.3); Neutrophils Percent Auto 53.7 % (45-73); Platelet Count 199 X10*3/uL (160-400); Red Blood Count 5.05 X10*6/uL (4.60-5.80); Red Cell Distribution Width 12.3 % (11.0-16.0); White Blood Count 4.5 X10*3/uL (4.8-10.8)
[2022-08-02 12:00] LABS: Alanine Aminotransferase 31 U/L (0-40); Albumin Level 4.5 g/dL (3.5-5.0); Alkaline Phosphatase 57 U/L (39-117); Anion Gap 11 (12-20); Aspartate Amino Transferase 27 U/L (5-37); Bilirubin Total 1.3 mg/dL (0.0-1.0); Blood Urea Nitrogen 15 mg/dL (9-16); Calcium 9.9 mg/dL (8.4-10.2); Carbon Dioxide 29 mmol/L (22-29); Chloride 107 mmol/L (96-108); Cholesterol 163 mg/dL; Estimated Glomerular Filt Rate > 60; Glucose Fasting 95 mg/dL (60-99); HDL Cholesterol 50 mg/dL; LDL Cholesterol Calculated 99 mg/dl; Potassium 4.6 mmol/L (3.3-5.1); Sodium 142 mmol/L (135-145); Total Protein 7.7 g/dL (6.5-8.0); Triglycerides 72 mg/dL
[2022-08-02 12:17] LABS: PSA,Total (Free>4and<10) 3.09 ng/mL (0.00-4.00)
== END 2022-08-02 08:34 | disposition home or self-care (01) ==
LOC: HO.HMGCLDS 08:33
PROVIDERS: PCP Internal Medicine; Visit Provider Internal Medicine
DX: Z00.00 Encounter for general adult medical examination without abnormal findings (principal); Z12.5 Encounter for screening for malignant neoplasm of prostate; N40.0 Benign prostatic hyperplasia without lower urinary tract symptoms; J44.9 Chronic obstructive pulmonary disease, unspecified; I10 Essential (primary) hypertension; E78.5 Hyperlipidemia, unspecified
CPT/HCPCS: 36415; 80053; 80061; 84153; 85025

== ENCOUNTER 2022-11-29 22:56 | Emergency (ER) | payer MEDICARE, MEDICAID, SELFPAY ==
[2022-11-29 23:01] VITALS: BP 154/60; PULSE 61; RESP 18; TEMP 36.4; O2SAT 96; BMI 22.9
--- NOTE | 2022-11-30 00:38 | ED_ITS ---
HPI - General Adult General Chief complaint: Extremity Injury, Lower Stated complaint: right foot injury Time Seen by Provider: 11/30/22 00:32 Source: patient, RN notes reviewed and old records reviewed Mode of arrival: ambulatory Limitations: no limitations History of Present Illness HPI narrative: 72-year-old male past medical history significant for COPD, BPH, celiac disease, hyperlipidemia, hypertension, coronary artery disease presents for evaluation of a right ankle injury. patient reports that 2 days ago he bumped his right ankle against a piece of metal he states that he has mild discomfort and there was a little bit of bleeding he has a small amount of redness that has developed since yesterday, no drainage from the wound he states that it is not overly painful but sometimes I get numbness and tingling that wakes me up every 5 minutes. Denies any fevers or chills, the patient is not a diabetic Related Data Home Medications Medication Instructions Recorded Confirmed aspirin 81 mg tablet,delayed 81 mg PO DAILY 05/07/20 11/15/22 release (Adult Low Dose Aspirin) clonazepam 1 mg tablet 1 mg PO BEDTIME 08/19/21 11/15/22 omeprazole 20 mg capsule,delayed 20 mg PO DAILY 04/25/22 11/15/22 release Previous Rx's Medication Instructions Recorded Symbicort 160 mcg-4.5 2 puff inhalation BID #10.2 grams 06/07/22 mcg/actuation HFA aerosol inhaler (budesonide-formoterol) rosuvastatin 40 mg tablet 40 mg PO DAILY #90 tabs 08/23/22 amlodipine 10 mg-olmesartan 40 mg 1 tab PO DAILY #90 tabs 11/15/22 tablet cephalexin 500 mg tablet 500 mg PO QID #28 tabs 11/30/22 lidocaine 5 % topical cream 1 appl topical BID #15 grams 11/30/22 Allergies Allergy/AdvReac Type Severity Reaction Status Date / Time atropine [ATROPINE] Allergy Unknown SEIZURE Verified 11/29/22 23:05 Review of Systems Constitutional: Constitutional: Denies chills and Denies fever(s) Eyes: Eyes: Denies blurry vision Respiratory: Respiratory: Denies cough Musculoskeletal: Musculoskeletal: Reports arthralgias and Denies joint swelling PMFSH Past Medical History Medical History Anxiety Celiac disease COPD (chronic obstructive pulmonary disease) Coronary artery disease COVID-19 vaccine series completed Esophageal stricture HTN (hypertension) Hyperlipidemia Hypertension Insomnia Stable angina Surgical History H/O colonoscopy History of coronary artery stent placement History of esophagogastroduodenoscopy (EGD) Family History Family History Father Colon cancer Mother Cancer Paternal Grandfather Cancer Social History Social History Housing: House Are you a primary complex care nurse to a significant other at home: No Do you presently have visiting nurse or other home services: No Patient Tobacco Use Status: Never used Tobacco e-Cigarette/Vaping Use: Never Used Advance Directives: No Advance Directives Information Provided: No Current occupational status: retired Cognitive needs: No Hearing needs: No Vision needs: No Physical Exam ED Vital Signs: Vital Signs - 24 hr 11/29/22 23:01 Temperature 97.6 F Pulse Rate 61 Respiratory Rate 18 Blood Pressure 154/60 H Pulse Oximetry 96 Oxygen Delivery Method Room Air BMI result Body Mass Index 22.9 Const General: healthy appearing, comfortable, no acute distress, alert and awake Nutritional Appearance: well nourished Orientation/consciousness: patient oriented x3 Skin Other: The patient has a small abrasion right over the right medial malleolus. there appears to be granulomatous tissue without any beefy red erythema, no increased warmth, no discharge no edema. General skin exam: no rashes or lesions noted and elasticity normal Neuro General: patient oriented x3 Cranial nerves: Yes CN's II-XII intact bilaterally and Yes Bilaterally intact EOM present Cognition (Neuro): normal cognition Extrem Other: Moving all extremities well without any obvious deformities there is no significant edema over the right ankle in the area the medial malleolus. There is no tenderness to the area. Medical Decision Making Medical Decision Making [facility] Narrative: Patient has a small abrasion, did not appear acutely infected to me. There is some granulomatous tissue but does not appear to be cellulitic. The patient is requesting a tetanus booster as he has not had 1 In over 20 years. He denies pain but states that he gets tingles that wake him up at night. Will prescribe the patient lidocaine cream to hopefully reduce the paresthesias to the area. I did agree to give the patient a paper prescription for cephalexin and case the area seems to be getting more red, swollen or with dischargethat he can then fill the prescription. the patient has full range of motion to the joint, no significant edema, less likely to be fracture, imaging deferred at this time. Differential Diagnosis skin tear Abrasion Cellulitis Contusion Discharge Plan Discharge Clinical Impression: Abrasion of ankle, right Patient Disposition: Home, Self-Care Instructions: Abrasion (ED) Additional Instructions: you may apply topical antibiotic twice a day. You may use lidocaine cream before bed. your tetanus was updated today and is good for the next 10 years fill the prescription for cephalexin if the area appears to be getting more red, swollen or painful or other is discharged from the open wound Prescriptions: New lidocaine 5 % cream 1 appl topical BID Qty: 15 0RF cephalexin 500 mg tablet 500 mg PO QID Qty: 28 0RF No Action budesonide-formoterol [Symbicort] 160-4.5 mcg/actuation HFA aerosol inhaler 2 puff inhalation BID Qty: 10.2 5RF clonazepam 1 mg tablet 1 mg PO BEDTIME rosuvastatin 40 mg tablet 40 mg PO DAILY Qty: 90 3RF amlodipine-olmesartan 10-40 mg tablet 1 tab PO DAILY Qty: 90 0RF aspirin [Adult Low Dose Aspirin] 81 mg tablet,delayed release (DR/EC) 81 mg PO DAILY omeprazole 20 mg capsule,delayed release(DR/EC) 20 mg PO DAILY
[2022-11-30] MEDS: Diphth,Pertus(ACell),Tet Adult 0.5 ML SYRINGE IM (00:48)
== END 2022-11-30 01:07 | disposition home or self-care (01) ==
PROVIDERS: Emergency Provider Internal Medicine; PCP Internal Medicine
DX: S90.511A Abrasion, right ankle, initial encounter (principal); W22.8XXA Striking against or struck by other objects, initial encounter; Y93.H2 Activity, gardening and landscaping; Y92.017 Garden or yard in single-family (private) house as the place of occurrence of the external cause; Y99.9 Unspecified external cause status
CPT/HCPCS: 90471; 90715; 99282; 99284

== ENCOUNTER 2023-05-03 09:05 | Outpatient (REF) | payer MEDICARE, MEDICAID, SELFPAY | END 2023-05-03 09:06 | disposition home or self-care (01) | LOC: HO.HMGCLDS 09:05 | PROVIDERS: PCP Internal Medicine; Visit Provider Internal Medicine | DX: I10 Essential (primary) hypertension (principal) | CPT/HCPCS: 36415; 80053 ==

== ENCOUNTER 2023-05-08 15:20 | Outpatient (AMB) | payer MEDICARE, MEDICAID, SELFPAY ==
--- NOTE | 2023-05-08 15:19 | A.OFFVIS_ITS ---
Intake Vital Signs 05/08/23 15:22 Height 5 ft 7 in Weight 149 lb 14.629 oz BMI 23.5 BP 130/70 Blood Pressure Location Lt brachial Position Sitting Pulse 66 Intake Visit Reasons: follow up per patient Intake Note: Follow-up with ekg feeling ok Ssds Mk 2 Advanced Operator Required: No Allergies atropine [ATROPINE] Allergy (Unknown, Verified 11/29/22 23:05) SEIZURE Medication List - Last Reconciled 05/08/23 by Isaias Yung MD amlodipine-olmesartan 10-40 mg 1 tab PO DAILY aspirin (Adult Low Dose Aspirin) 81 mg PO DAILY cephalexin 500 mg PO QID clonazepam 1 mg PO BEDTIME lidocaine 5% 1 appl topical BID omeprazole 20 mg PO DAILY rosuvastatin 40 mg PO DAILY Symbicort 160-4.5 mcg/actuation (budesonide-formoterol) 2 puffs inhalation BID NS HPI HPI Comments History of Present Illness Details 72 year gentleman is here for follow-up. He has background history of LAD PCI In the past. He had cardiac catheterization recently which did not show any significant disease and patent LAD stent was noticed. He has been doing well. He has been active and walking daily without any exertional chest discomfort shortness of breath. He is saying his insomnia is better to since he started walking and doing some exercise. Blood pressure control is good. 05/08/2023: He returns for follow-up. He is complaining of shortness of breath when he is playing ping-pong and pickle ball. He is saying this is a fairly new symptom for him. He is denying any chest discomfort. He has left bundle-branch block on the ECG. [facility], [facility] Medical History Anxiety Celiac disease COPD (chronic obstructive pulmonary disease) Coronary artery disease COVID-19 vaccine series completed Esophageal stricture HTN (hypertension) Hyperlipidemia Hypertension Insomnia Stable angina Surgical History H/O colonoscopy History of coronary artery stent placement History of esophagogastroduodenoscopy (EGD) Family History Father Colon cancer Mother Cancer Paternal Grandfather Cancer Social History Housing: House Are you a primary resident care manager to a significant other at home: No Do you presently have visiting nurse or other home services: No Patient Tobacco Use Status: Never used Tobacco e-Cigarette/Vaping Use: Never Used Current occupational status: retired Cognitive needs: No Hearing needs: No Vision needs: No Review of Systems Const Denies chills, Denies fatigue, Denies fever(s), Denies frequent falls, Denies weakness, Denies weight gain and Denies weight loss ENT Denies dizziness Card Denies chest pain, Denies leg edema, Denies lightheadedness, Denies palpitations, Denies dyspnea, Denies dyspnea on exertion, Denies orthopnea and Denies other (loss of consciousness) Resp Denies cough, Denies dyspnea and Denies dyspnea on exertion GI Denies hematochezia and Denies change in stool character Musc Denies abnormal gait, Denies muscle weakness, Denies numbness, Denies radiating pain into limb and Denies tingling Neuro Denies abnormal gait, Denies dizziness, Denies frequent falls, Denies numbness, Denies tingling and Denies weakness Endo Denies fatigue and Denies palpitations Physical Exam Vital Signs: Last Vital Signs Pulse 66 05/08/23 15:22 BP 130/70 05/08/23 15:22 BMI result Body Mass Index 23.5 GENERAL APPEARANCE: in no acute distress, pleasant. NECK: no carotid bruit, no jugular venous distention. SKIN: no suspicious lesions, warm and dry. HEART: no murmurs, regular rate and rhythm. LUNGS: clear to auscultation bilaterally. ABDOMEN: soft, nontender. EXTREMITIES: no edema. PERIPHERAL PULSES: equal. NEUROLOGIC: No gross deficits, AAO X 3 Office Procedures EKG Details: NSR 66/min, LBBB, QTc 490 msec. [id number], Complete Assessment & Plan Assessment & Plan (1) Dyspnea: Code(s): R06.00 - Dyspnea, unspecified (2) Hypertension: Comment: Stable Code(s): I10 - Essential (primary) hypertension (3) Stable angina: Comment: He is status post LAD PCI. He is stable. Code(s): I20.8 - Other forms of angina pectoris Plan 72-year-old gentleman here for follow-up. He has hypertension and blood pressure control is good. Denying any chest pain. He is complaining of some shortness of breath. He has lung disease and is currently taking headers. We will arrange an echocardiogram given the fact that he has left bundle-branch block. Sometime this is a marker for cardiomyopathy. Clinically is not in heart failure. If echo is normal then we will pursue exercise stress test. Thank you for allowing me to participate in the care of your patient. Please feel free to contact me if you have any questions. Orders: Orders CA echo transthoracic complete Today R06.00 - Dyspnea, unspecified Medications: Changed From rosuvastatin 40 mg PO DAILY 90 tabs 3RF R06.00 - Dyspnea, unspecified To rosuvastatin 20 mg (1/2 x 40 mg) PO DAILY 90 tabs 3RF R06.00 - Dyspnea, unspecified Coding Level of Care Code Est Pt Level 3 (34264) Diagnoses Dyspnea R06.00 Hypertension I10 Stable angina I20.8 CPT Codes EKG - CPT: 34836-[id number], Complete ([id number])
[2023-05-08 15:22] VITALS: BP 130/70; PULSE 66; BMI 23.5
== END 2023-05-08 15:50 | disposition home or self-care (01) ==
PROVIDERS: PCP Internal Medicine; Visit Provider Internal Medicine Cardiovascular Disease
DX: I44.7 Left bundle-branch block, unspecified (principal); R94.31 Abnormal electrocardiogram [ECG] [EKG]
CPT/HCPCS: 93010; 99213

== ENCOUNTER → 2023-05-08 15:20 | Outpatient (BNVA) | payer MEDICARE, MEDICAID, SELFPAY | PROVIDERS: PCP Internal Medicine; Visit Provider Internal Medicine Cardiovascular Disease | DX: I20.89 Other forms of angina pectoris (principal); I10 Essential (primary) hypertension | CPT/HCPCS: 93005; 99212 ==

== ENCOUNTER 2023-05-15 13:54 | Outpatient (AMB) | payer MEDICARE, MEDICAID, SELFPAY ==
--- NOTE | 2023-05-15 13:56 | A.OFFPC_ITS ---
Vital Signs 05/15/23 13:57 Height 5 ft 7 in Weight 148 lb BMI 23.2 BP 130/82 Blood Pressure Location Lt brachial Position Sitting Pulse 68 Pulse Source Pulse Oximeter Pulse Oximetry (%) 99 Oxygen Delivery Method Room Air Intake Visit Reasons: 6 month follow up HTN Intake Note: Pt is here today for 6 months follow up visit. Allergies atropine [ATROPINE] Allergy (Unknown, Verified 05/15/23 13:58) SEIZURE Medication List - Last Reconciled 05/15/23 by Marleni Karimi MD amlodipine-olmesartan 10-40 mg 1 tab PO DAILY aspirin (Adult Low Dose Aspirin) 81 mg PO DAILY clonazepam 1 mg PO BEDTIME lidocaine 5% 1 appl topical BID omeprazole 20 mg PO DAILY rosuvastatin 20 mg PO DAILY rosuvastatin 20 mg (1/2 x 40 mg) PO DAILY Symbicort 160-4.5 mcg/actuation (budesonide-formoterol) 2 puffs inhalation BID NS Tobacco use date assessed: 05/15/23 Dental Screening Dental Screen Date: 05/15/23 Did you have a dental visit in the last 12 months?: Yes Did you have a dental problem in the last 6 months where you did not have access to dental care?: No Was dental information given to patient?: Patient has dentist HPI 6 month follow up HTN HPI Details Pt presents for f/u hyperlipid and HTN, stable on meds. Patient reports increased dyspnea on exertion when playing pickleball and has echocardiogram schedule by Cardiology. He denies palpitations or chest pain with exertion or at rest. Patient follows up with psychiatrist in [place] who has been prescribing him clonazepam. [facility] Medical History Anxiety Celiac disease COPD (chronic obstructive pulmonary disease) Coronary artery disease COVID-19 vaccine series completed Esophageal stricture HTN (hypertension) Hyperlipidemia Hypertension Insomnia Stable angina Surgical History H/O colonoscopy History of coronary artery stent placement History of esophagogastroduodenoscopy (EGD) Family History Father Colon cancer Mother Cancer Paternal Grandfather Cancer Social History Housing: House Are you a primary animal care attendant to a significant other at home: No Do you presently have visiting nurse or other home services: No Patient Tobacco Use Status: Never used Tobacco e-Cigarette/Vaping Use: Never Used Current occupational status: retired Cognitive needs: No Hearing needs: No Vision needs: No Questionnaire Thrive Questionnaire Date Thrive assessed: 11/15/22 JM-7 AMB Questionnaire JM-7 Date JM - 7 assessed: 11/15/22 Source: Developed by Drs. Santino Rodriguez, Cielo Matute, Ike Breen and colleagues, with an educational jose from [employer]. Review of Systems Const All systems reviewed & are unremarkable except as noted in HPI and below Reports no additional complaints Eyes Reports no additional complaints ENT Reports no additional complaints Card Reports no additional complaints Resp Reports no additional complaints GI Reports no additional complaints Reports no additional complaints Physical exam (Primary Care) Vital Signs: Last Vital Signs Pulse 68 05/15/23 13:57 BP 140/82 H 05/15/23 13:57 Pulse Ox 99 05/15/23 13:57 Oxygen Delivery Method Room Air 05/15/23 13:57 BMI result Body Mass Index 23.2 Tobacco/Smoking Status: Tobacco use Status Tobacco use date assessed 05/15/23 05/15/23 14:02 Patient Tobacco Use Status Never used Tobacco 05/15/23 13:57 e-Cigarette/Vaping Use Never Used 05/15/23 13:57 Thrive Assessment: Date of Thrive Assessment Date Thrive assessed 11/15/22 05/15/23 13:57 Const General: no acute distress Neck Neck: Yes supple Resp Effort & Inspection: normal respiratory effort Auscultation: clear to auscultation bilaterally Cardio Rhythm: regular rhythm Heart sounds: S1 normal heart sound present and S2 normal heart sound present GI Inspection: Yes normal to inspection Palpation (GI): Soft to palpation Percussion: Yes normal to percussion Auscultation: normal bowel sounds Assessment and Plan Assessment & Plan (1) Hyperlipidemia: Code(s): E78.5 - Hyperlipidemia, unspecified Plan: Continue statin (2) Coronary artery disease: Comment: sees Code(s): I25.10 - Atherosclerotic heart disease of [place] coronary artery without angina pectoris Plan: Follow-up with Cardiology (3) Hypertension: Comment: Stable Code(s): I10 - Essential (primary) hypertension Plan: Continue current medications. Medication compliance discussed with patient (4) Dyspnea: Code(s): R06.00 - Dyspnea, unspecified Plan: Patient will have echo follow-up by stress test by Cardiology Orders: Orders Vitamin D 25-OH Total 6 Months E78.5 - Hyperlipidemia, unspecified, I10 - Essential (primary) hypertension, I25.10 - Atherosclerotic heart disease of [place] coronary artery without angina pectoris Comprehensive [place]. Panel Fast 6 Months E78.5 - Hyperlipidemia, unspecified, I10 - Essential (primary) hypertension, I25.10 - Atherosclerotic heart disease of [place] coronary artery without angina pectoris Lipid Panel 6 Months E78.5 - Hyperlipidemia, unspecified, I10 - Essential (primary) hypertension, I25.10 - Atherosclerotic heart disease of [place] coronary artery without angina pectoris Complete Blood Count Auto Diff 6 Months E78.5 - Hyperlipidemia, unspecified, I10 - Essential (primary) hypertension, I25.10 - Atherosclerotic heart disease of [place] coronary artery without angina pectoris Medications: New rosuvastatin 20 mg PO DAILY 90 tabs 3RF Coding Level of Care Code Est Pt Level 4 (35406) Diagnoses Hyperlipidemia E78.5 Coronary artery disease I25.10 Hypertension I10 Dyspnea R06.00
[2023-05-15 13:57] VITALS: BP 130/82; PULSE 68; O2SAT 99; BMI 23.2
== END 2023-05-15 14:47 | disposition home or self-care (01) ==
PROVIDERS: Visit Provider Internal Medicine
DX: E78.5 Hyperlipidemia, unspecified (principal); I25.10 Atherosclerotic heart disease of native coronary artery without angina pectoris; I10 Essential (primary) hypertension; R06.00 Dyspnea, unspecified
CPT/HCPCS: 99214

== ENCOUNTER → 2023-06-06 09:40 | Outpatient (REF) | payer MEDICARE, MEDICAID, SELFPAY ==
--- NOTE | 2023-06-06 09:43 | CA_ITS ---
Transthoracic Echocardiogram Patient (Last, First, Middle): Nick Greenfield, Gender: Male Date of : 1950 Age: 73 Procedure Date: 06/06/2023 Procedure Type: Transthoracic Echocardiogram Location: OP Height: 172.72 cm Weight: 66.68 kg BSA: 1.79 m2 Heart Rate: 53 bpm BP: 140 / 78 mmHg Securities Compliance Examiner: SB Referring MD: Isaias Yung MD Nuclear Medical Technologist: Isaias Yung MD Symptoms: R06.00 - Dyspnea, unspecified Study Quality: Fair but adequate ECG Rhythm: Bradycardia Conclusions: - Normal left ventricular cavity size. There is normal left ventricular wall thickness. The left ventricular systolic function is low normal. The visually estimated ejection fraction is between 50-55%. - There is moderate septal asymmetric hypertrophy. - Normal right ventricular cavity size and systolic function. - The left atrium is mildly dilated. The right atrium is normal in size. Findings Left Ventricle Normal left ventricular cavity size. There is normal left ventricular wall thickness. The left ventricular systolic function is low normal. The visually estimated ejection fraction is between 50-55%. There is paradoxical septal motion consistent with a left bundle branch block. Diastolic function is indeterminate on the basis of available data. There is moderate septal asymmetric hypertrophy. Right Ventricle Normal right ventricular cavity size and systolic function. Atria The left atrium is mildly dilated. The right atrium is normal in size. Aortic Valve There is a normal trileaflet aortic valve. There is no aortic valve stenosis. There is no aortic valve regurgitation. Mitral Valve Normal mitral valve structure and function. There is trace mitral valve regurgitation. There is no mitral valve stenosis. Pulmonic Valve The pulmonic valve is likely normal. There is trace pulmonic valve regurgitation. Tricuspid Valve Normal tricuspid valve structure and function. There is no tricuspid valve regurgitation. Normal right atrial pressure. There is no evidence of pulmonary hypertension. Great Vessels All visible segments of the aorta are normal in size. The visualized portions of the pulmonary artery and branches are normal. Venous The inferior vena cava is normal in size and collapses greater than 50% with inspiration. Pericardium/Pleural There is no evidence of pericardial effusion. Prior Study Comparison Changes noted compared to prior study dated: 07/10/2018. EF low normal. abnormal septal movement due to LBBB. Measurements 2D Linear Measurements IVSd: 0.99 0.6-0.9/0.6-1.0 cm LVIDd: 5.70 3.9-5.3/4.2-5.9 cm LVIDd Index: 3.18 2.4-3.2/2.2-3.1 cm/m2 LVIDs: 3.90 2.0-3.6 cm LVPWd: 0.88 0.7-1.1 cm LA Diam: 4.40 2.7-3.8/3.0-4.0 cm LAIDs Index: 2.46 1.5-2.3 cm/m2 LV Mass: 257.66 67-162/88-224 g LV Mass Index: 143.94 43-95/49-115 g/m2 LVOT Diam: 2.30 3.0+(-)1.3 cm 2D Systolic Function EF 4C: 54.30 >55% Mitral Valve MV Pk E: 0.67 MV PK A: 0.61 MV Decel Time: 239.00 E/A: 1.10 E'Lateral: 6.20 E'Medial: 4.35 E/E' Med: 15.40 E/E' Lat: 10.80 PHT: 70.00 MVA PHT: 3.14 Decel Schley: 2.80 Aortic Valve AoV Pk Jorge Luis: 1.05 AoV Pk Grad: 4.00 ALISTAIR: 2.92 LVOT LVOT Pk Jorge Luis: 0.78 LVOT Mn Jorge Luis: 0.52 LVOT VTI: 0.16 LVOT Pk Grad: 2.00 LVOT Mn Grad: 1.00 LVOT Diam: 2.30 LVOT Area: 4.15 Diastolic Function MV Pk E: 0.67 MV Pk A: 0.61 E/A: 1.10 E'Medial: 4.35 E/E' Med: 15.40 E' Laterial: 6.20 E/E' Lat: 10.80 Right Ventricle TAPSE (mm): 23.20 TVS' Jorge Luis: 11.80 Tricuspid Valve TR Pk Jorge Luis: 1.93 TR Pk Grad: 15.00 RA Press: 8.00 RVSP: 23.00 Great Vessels Aorta Sinus of Valsalva: 3.60 2.0-3.5 cm Ao Asc: 3.40 2.1-3.4 cm Pulmonary Valve PV Pk Jorge Luis: 1.26 Peak PV Grad: 6.00 Updated in Other Vendor System with Status of Final Isaias Yung MD electronically signed on 06/07/2023 1:03:00 PM with status of Final
== END ==
LOC: HO.CARD 09:40
PROVIDERS: PCP Internal Medicine; Visit Provider Internal Medicine Cardiovascular Disease
DX: R06.00 Dyspnea, unspecified (principal)
CPT/HCPCS: 93306

== ENCOUNTER → 2023-06-06 09:43 | Outpatient (BNV) | payer MEDICARE, MEDICAID, SELFPAY | PROVIDERS: PCP Internal Medicine; Visit Provider Internal Medicine Cardiovascular Disease | DX: I42.9 Cardiomyopathy, unspecified (principal) | CPT/HCPCS: 93306 ==

== ENCOUNTER 2023-07-26 08:07 | Outpatient (AMB) | payer MEDICARE, MEDICAID, SELFPAY ==
[2023-07-26 08:47] VITALS: BP 120/70; PULSE 91; TEMP 36.4; O2SAT 96; BMI 23.5
--- NOTE | 2023-07-26 08:47 | AM.OFFWIN_ITS ---
Intake Vital Signs 07/26/23 08:47 Height 5 ft 7 in Weight 150 lb BMI 23.5 BP 120/70 Blood Pressure Location Lt brachial Position Sitting Pulse 91 Pulse Source Pulse Oximeter Temp 97.6 F Temp Source Temporal Artery Scan Pulse Oximetry (%) 96 Intake Visit Reasons: EP, cough, congestion ([phone]) Intake Note: pt is here today for cough congestion started 07/22 Patient Tobacco Use Status: Never used Tobacco Allergies atropine [ATROPINE] Allergy (Unknown, Verified 07/26/23 09:36) SEIZURE Medication List - Last Reconciled 07/26/23 by Oli Oseguera MD amlodipine-olmesartan 10-40 mg 1 tab PO DAILY aspirin (Adult Low Dose Aspirin) 81 mg PO DAILY clonazepam 1 mg PO BEDTIME lidocaine 5% 1 appl topical BID omeprazole 20 mg PO DAILY rosuvastatin 20 mg PO DAILY rosuvastatin 20 mg (1/2 x 40 mg) PO DAILY Symbicort 160-4.5 mcg/actuation (budesonide-formoterol) 2 puffs inhalation BID NS Do you need a note to return to daycare/school/sports/work: No HPI EP, cough, congestion ([phone]) HPI Details 73-year-old male presents to the office for a sick visit. Patient is reporting symptoms of nonproductive cough and wheezing for the past few days. Minimal congestion in the throat and postnasal drip. Mild fatigue symptoms. Nonsmoker. [facility] Medical History Anxiety Celiac disease COPD (chronic obstructive pulmonary disease) Coronary artery disease COVID-19 vaccine series completed Esophageal stricture HTN (hypertension) Hyperlipidemia Hypertension Insomnia Stable angina Surgical History H/O colonoscopy History of coronary artery stent placement History of esophagogastroduodenoscopy (EGD) Family History Father Colon cancer Mother Cancer Paternal Grandfather Cancer Social History Housing: House Are you a primary plant care worker to a significant other at home: No Do you presently have visiting nurse or other home services: No Patient Tobacco Use Status: Never used Tobacco e-Cigarette/Vaping Use: Never Used Current occupational status: retired Cognitive needs: No Hearing needs: No Vision needs: No Physical Exam Vital Signs: Last Vital Signs Temp 97.6 F 07/26/23 08:47 Pulse 91 07/26/23 08:47 BP 120/70 07/26/23 08:47 Pulse Ox 96 07/26/23 08:47 BMI result Body Mass Index 23.5 Const General: cooperative and healthy appearing Nutritional Appearance: well nourished Orientation/consciousness: patient oriented x3 Limitations: no limitations HEENT Head: Yes normal to inspection Eyes General: appearance normal, both eyes and all related structures Neck Neck: Yes normal visual inspection Chest Chest palpation & inspection: normal palpation of entire chest wall Resp Effort & Inspection: normal respiratory effort Neuro General: patient oriented x3 Results AMB Rapid Strep AMB Rapid Strep Negative Last Edit by Rajinder Gillespie CMA on 07/26/23 09 :07 Results Reviewed Results Reviewed: Laboratory Last Values Strep Scn [facility] Negative 07/26/23 09:06 Assessment & Plan Assessment & Plan (1) Upper respiratory tract infection: Code(s): J06.9 - Acute upper respiratory infection, unspecified Plan: Antibiotics ordered. Increase fluid intake. Tylenol for aches and pains. If symptoms worsen, follow-up here for a recheck. Orders: Orders AMB Rapid Strep Screen Today Z13.9 - Encounter for screening, unspecified Coding Level of Care Code Est Pt Level 3 (80820) Diagnoses Upper respiratory tract infection J06.9
== END 2023-07-26 09:46 | disposition home or self-care (01) ==
PROVIDERS: PCP Internal Medicine; Visit Provider Internal Medicine
DX: J06.9 Acute upper respiratory infection, unspecified (principal)
CPT/HCPCS: 87880; 99213

== ENCOUNTER 2023-08-07 10:54 | Outpatient (AMB) | payer MEDICARE, MEDICAID, SELFPAY ==
[2023-08-07 11:18] VITALS: BP 130/62; PULSE 68; BMI 23.3
--- NOTE | 2023-08-07 11:18 | A.OFFVIS_ITS ---
Intake Vital Signs 08/07/23 11:18 Height 5 ft 7 in Weight 148 lb 12.992 oz BMI 23.3 BP 130/62 Blood Pressure Location Lt brachial Position Sitting Pulse 68 Pulse Source Pulse Oximeter Intake Visit Reasons: 3 mth s/p echo Intake Note: 3 mnth s/p echo pt its feeling fine. Environmental Economist Required: No Accompanied by: Self / Same As Patient Allergies atropine [ATROPINE] Allergy (Unknown, Verified 07/26/23 09:36) SEIZURE Medication List - Last Reconciled 08/07/23 by Isaias Yung MD amlodipine-olmesartan 10-40 mg 1 tab PO DAILY aspirin (Adult Low Dose Aspirin) 81 mg PO DAILY azithromycin take 500 mg today (day 1), then 250 mg for 4 days (days 2-5) PO clonazepam 1 mg PO BEDTIME lidocaine 5% 1 appl topical BID omeprazole 20 mg PO DAILY rosuvastatin 20 mg PO DAILY Symbicort 160-4.5 mcg/actuation (budesonide-formoterol) 2 puffs inhalation BID NS HPI HPI Comments History of Present Illness Details 73 year gentleman is here for follow-up. He has background history of LAD PCI In the past. He had cardiac catheterization recently which did not show any significant disease and patent LAD stent was noticed. He has been doing well. He has been active and walking daily without any exertional chest discomfort shortness of breath. He is saying his insomnia is better to since he started walking and doing some exercise. Blood pressure control is good. 05/08/2023: He returns for follow-up. He is complaining of shortness of breath when he is playing ping-pong and pickle ball. He is saying this is a fairly new symptom for him. He is denying any chest discomfort. He has left bundle-branch block on the ECG. 08/07/2023: He returns for follow-up. D enying any chest discomfort shortness of breath. He is saying that breathing is better with inhalers. He has been using clonazepam for long time it was prescribed by a neurologist at [facility]. He is saying that his doctor from [facility] has left and he will be running out of clonazepam. He had echocardiogram performed which showed low normal ejection fraction. ECHO was performed because he has left bundle-branch block. Overall otherwise stable. [facility] Medical History Anxiety Celiac disease COPD (chronic obstructive pulmonary disease) Coronary artery disease COVID-19 vaccine series completed Esophageal stricture HTN (hypertension) Hyperlipidemia Hypertension Insomnia Stable angina Surgical History History of coronary artery stent placement H/O colonoscopy History of esophagogastroduodenoscopy (EGD) Family History Father Colon cancer Mother Cancer Paternal Grandfather Cancer Social History Housing: House Are you a primary medicare contact specialist to a significant other at home: No Do you presently have visiting nurse or other home services: No Patient Tobacco Use Status: Never used Tobacco e-Cigarette/Vaping Use: Never Used Current occupational status: retired Cognitive needs: No Hearing needs: No Vision needs: No Review of Systems Const Reports chills, Reports fatigue, Reports fever(s), Reports frequent falls, Reports weakness, Reports weight gain and Reports weight loss ENT Reports dizziness Card Reports chest pain, Reports leg edema, Reports lightheadedness, Reports palpitations, Reports dyspnea and Reports dyspnea on exertion Resp Reports cough, Reports dyspnea and Reports dyspnea on exertion GI Reports hematochezia Musc Reports abnormal gait, Reports muscle weakness, Reports numbness, Reports radiating pain into limb and Reports tingling Neuro Reports abnormal gait, Reports dizziness, Reports frequent falls, Reports numbness, Reports tingling and Reports weakness Endo Reports fatigue and Reports palpitations Physical Exam Vital Signs: Last Vital Signs Pulse 68 08/07/23 11:18 BP 130/62 08/07/23 11:18 BMI result Body Mass Index 23.3 GENERAL APPEARANCE: in no acute distress, pleasant. NECK: no carotid bruit, no jugular venous distention. SKIN: no suspicious lesions, warm and dry. HEART: no murmurs, regular rate and rhythm. LUNGS: clear to auscultation bilaterally. ABDOMEN: soft, nontender. EXTREMITIES: no edema. PERIPHERAL PULSES: equal. NEUROLOGIC: No gross deficits, AAO X 3 Assessment & Plan Assessment & Plan (1) LBBB (left bundle branch block): Code(s): I44.7 - Left bundle-branch block, unspecified (2) Hypertension: Comment: Stable Code(s): I10 - Essential (primary) hypertension (3) Stable angina: Comment: He is status post LAD PCI. He is stable. Code(s): I20.8 - Other forms of angina pectoris Plan Pleasant 73 year gentleman who is here for follow-up. He has background history of coronary disease with previous LAD PCI. He has left bundle-branch block. Echocardiography has shown low normal ejection fraction. Clinically does not have any heart failure symptoms. Blood pressure is well controlled. He is taking ARB. His main concerns are about running out on clonazepam. I think he has dependence to some extent as he has been using clonazepam for anxiety and sleep for long time. He has some names given by insurance of psychiatrist locally and I have advised him to call and get an appointment with 1 of them. He said he has tried alternative medications including trazodone and melatonin in the past with suboptimal results. Given low normal ejection fraction on echocardiography, I have advised him to repeat echocardiography in few months. Follow-up in 3-4 months. Thank you for allowing me to participate in the care of your patient. Please feel free to contact me if you have any questions. Orders: Orders CA echo limited 3 Months I44.7 - Left bundle-branch block, unspecified Coding Level of Care Code Est Pt Level 4 (34658) Diagnoses LBBB (left bundle branch block) I44.7 Hypertension I10 Stable angina I20.8
== END 2023-08-07 11:51 | disposition home or self-care (01) ==
PROVIDERS: PCP Internal Medicine; Referring Provider Internal Medicine; Visit Provider Internal Medicine Cardiovascular Disease
DX: I44.7 Left bundle-branch block, unspecified (principal); I10 Essential (primary) hypertension; I20.8 Other forms of angina pectoris
CPT/HCPCS: 99214

== ENCOUNTER → 2023-08-07 10:54 | Outpatient (BNVA) | payer MEDICARE, MEDICAID, SELFPAY | PROVIDERS: PCP Internal Medicine; Visit Provider Internal Medicine Cardiovascular Disease | DX: I44.7 Left bundle-branch block, unspecified (principal); I10 Essential (primary) hypertension; I20.89 Other forms of angina pectoris | CPT/HCPCS: 99212 ==

== ENCOUNTER → 2023-11-07 10:37 | Outpatient (REF) | payer MEDICARE, MEDICAID, SELFPAY ==
--- NOTE | 2023-11-07 10:41 | CA_ITS ---
Transthoracic Echocardiogram Patient (Last, First, Middle): Nick Greenfield, Gender: Male Date of : 1950 Age: 73 Procedure Date: 11/07/2023 Procedure Type: Transthoracic Echocardiogram Location: OP Height: 170.18 cm Weight: 66.68 kg BSA: 1.77 m2 Heart Rate: 57 bpm BP: 152 / 80 mmHg Manager Credit Collections: SAI Referring MD: Isaias Yung MD Symptoms: I44.7 - Left bundle-branch block, unspecified Study Quality: Fair. Limited by order ECG Rhythm: Bradycardia Conclusions: - The left ventricular systolic function is mildly decreased. The calculated ejection fraction is 51% by biplane method. Findings Left Ventricle Normal left ventricular cavity size. There is moderately increased left ventricular wall thickness. The left ventricular systolic function is mildly decreased. The calculated ejection fraction is 51% by biplane method. There is paradoxical septal motion consistent with a left bundle branch block. Focal severe hypertrophy of basal septum. Venous The inferior vena cava is mildly dilated and collapses greater than 50% with inspiration. Prior Study Comparison No significant change compared to prior study dated: 06/06/2023. Measurements 2D Linear Measurements IVSd: 1.42 0.6-0.9/0.6-1.0 cm LVIDd: 5.20 3.9-5.3/4.2-5.9 cm LVIDd Index: 2.94 2.4-3.2/2.2-3.1 cm/m2 LVIDs: 3.12 2.0-3.6 cm LVPWd: 1.33 0.7-1.1 cm LV Mass: 376.33 67-162/88-224 g LV Mass Index: 212.61 43-95/49-115 g/m2 LVOT Diam: 2.00 3.0+(-)1.3 cm 2D Systolic Function EF 4C: 50.90 >55% EF 2C: 51.40 >55% EF BiP: 50.70 >55% LVOT LVOT Pk Jorge Luis: 0.86 LVOT Mn Jorge Luis: 0.57 LVOT VTI: 0.18 LVOT Pk Grad: 3.00 LVOT Mn Grad: 2.00 LVOT Diam: 2.00 LVOT Area: 3.14 Updated in Other Vendor System with Status of Final Nikita Williamson MD electronically signed on 11/08/2023 10:52:52 AM with status of Final
== END ==
LOC: HO.CARD 10:37
PROVIDERS: PCP Internal Medicine; Visit Provider Internal Medicine Cardiovascular Disease
DX: I44.7 Left bundle-branch block, unspecified (principal)
CPT/HCPCS: 93308

== ENCOUNTER → 2023-11-07 10:41 | Outpatient (BNV) | payer MEDICARE, MEDICAID, SELFPAY | PROVIDERS: PCP Internal Medicine; Visit Provider Internal Medicine | DX: I44.7 Left bundle-branch block, unspecified (principal); I42.2 Other hypertrophic cardiomyopathy | CPT/HCPCS: 93308 ==

== ENCOUNTER 2023-11-14 08:23 | Outpatient (REF) | payer MEDICARE, MEDICAID, SELFPAY ==
[2023-11-14 10:22] LABS: MANUAL DIFF FLAG NO
[2023-11-14 10:43] LABS: Basophils Percent Auto 0.7 % (0-2); Eosinophils Absolute Auto 0.2 X10*3/uL (0.0-0.4); Eosinophils Percent Auto 3.8 % (0-4); Hematocrit 41.8 % (42.0-52.0); Hemoglobin 14.4 g/dl (14.0-18.0); Lymphocytes Absolute Auto 1.5 X10*3/uL (1.2-4.9); Lymphocytes Percent Auto 36.2 % (20-40); Mean Corpuscular HGB Conc 34.4 g/dl (31.0-36.0); Mean Corpuscular Hemoglobin 31.8 pg (27.0-33.0); Mean Corpuscular Volume 92.3 fL (80.0-98.0); Mean Platelet Volume 10.1 fL (9.4-12.4); Monocytes Absolute Auto 0.5 X10*3/uL (0.1-1.2); Monocytes Percent Auto 11.7 % (2-11); Neutrophils Percent Auto 47.6 % (45-73); Platelet Count 176 X10*3/uL (160-400); Red Blood Count 4.53 X10*6/uL (4.60-5.80); Red Cell Distribution Width 12.3 % (11.0-16.0); White Blood Count 4.3 X10*3/uL (4.8-10.8)
[2023-11-14 12:03] LABS: Alanine Aminotransferase 20 U/L (0-40); Albumin Level 4.4 g/dL (3.5-5.0); Alkaline Phosphatase 43 U/L (39-117); Anion Gap 10 (12-20); Aspartate Amino Transferase 21 U/L (5-37); Bilirubin Total 1.1 mg/dL (0.0-1.0); Blood Urea Nitrogen 17 mg/dL (9-16); Calcium 9.4 mg/dL (8.4-10.2); Carbon Dioxide 28 mmol/L (22-29); Chloride 107 mmol/L (96-108); Cholesterol 162 mg/dL (<200); Estimated Glomerular Filt Rate > 60; Glucose Fasting 90 mg/dL (60-99); HDL Cholesterol 56 mg/dL (>40); LDL Cholesterol Calculated 98 mg/dL (<100); Potassium 4.2 mmol/L (3.3-5.1); Sodium 141 mmol/L (135-145); Total Protein 7.6 g/dL (6.5-8.0); Triglycerides 44 mg/dL (<150)
== END 2023-11-14 08:24 | disposition home or self-care (01) ==
LOC: HO.HMGCLDS 08:23
PROVIDERS: PCP Internal Medicine; Visit Provider Internal Medicine
DX: I25.10 Atherosclerotic heart disease of native coronary artery without angina pectoris (principal); I10 Essential (primary) hypertension; E78.5 Hyperlipidemia, unspecified
CPT/HCPCS: 36415; 80053; 80061; 82306; 85025

== ENCOUNTER 2023-11-20 10:45 | Outpatient (AMB) | payer MEDICARE, MEDICAID, SELFPAY ==
[2023-11-20 10:49] VITALS: BP 130/72; PULSE 73; BMI 23.2
--- NOTE | 2023-11-20 10:49 | A.OFFVIS_ITS ---
Vital Signs 11/20/23 10:49 Height 5 ft 7 in Weight 148 lb BMI 23.2 BP 130/72 Blood Pressure Location Lt brachial Position Sitting Pulse 73 Pulse Source Pulse Oximeter Intake Visit Reasons: f/up echo Intake Note: pt its feeling fine Morning Show Newscast Producer Required: No Accompanied by: Self / Same As Patient Allergies atropine [ATROPINE] Allergy (Unknown, Verified 07/26/23 09:36) SEIZURE Medication List - Last Reconciled 11/20/23 by Isaias Yung MD amlodipine-olmesartan 10-40 mg 1 tab PO DAILY aspirin (Adult Low Dose Aspirin) 81 mg PO DAILY Breo Ellipta 100-25 mcg/dose (fluticasone furoate-vilanterol) 1 inh inhalation DAILY NS clonazepam 1 mg PO BEDTIME lidocaine 5% 1 appl topical BID rosuvastatin 20 mg PO DAILY Symbicort 160-4.5 mcg/actuation (budesonide-formoterol) 2 puffs inhalation BID NS HPI Comments Details: 73 year gentleman is here for follow-up. He has background history of LAD PCI In the past. He had cardiac catheterization recently which did not show any significant disease and patent LAD stent was noticed. He has been doing well. He has been active and walking daily without any exertional chest discomfort shortness of breath. He is saying his insomnia is better to since he started walking and doing some exercise. Blood pressure con trol is good. 05/08/2023: He returns for follow-up. He is complaining of shortness of breath when he is playing ping-pong and pickle ball. He is saying this is a fairly new symptom for him. He is denying any chest discomfort. He has left bundle-branch block on the ECG. 08/07/2023: He returns for follow-up. Denying any chest discomfort shortness of breath. He is saying that breathing is better with inhalers. He has been using clonazepam for long time it was prescribed by a neurologist at [facility]. He is saying that his doctor from [facility] has left and he will be running out of clonazepam. He had echocardiogram performed which showed low normal ejection fraction. ECHO was performed because he has left bundle-branch block. Overall otherwise stable. 11/20/23: He returns for follow-up. He had echocardiography performed on 11/07/2023 showing low normal ejection fraction 51% by biplane method. Paradoxical septal motion due to left bundle-branch block. No significant change in ejection fraction compared to before. Denying any symptoms. [facility] Medical History (Updated 11/20/23 @ 20:41 by Isaias Yung MD) COVID-19 vaccine series completed HTN (hypertension) COPD (chronic obstructive pulmonary disease) Esophageal stricture Celiac disease Insomnia Hyperlipidemia Anxiety Coronary artery disease Stable angina Hypertension Surgical History History of coronary artery stent placement H/O colonoscopy History of esophagogastroduodenoscopy (EGD) Family History Father Colon cancer Mother Cancer Paternal Grandfather Cancer Social History Housing: House Are you a primary school child care attendant to a significant other at home: No Do you presently have visiting nurse or other home services: No Patient Tobacco Use Status: Never used Tobacco e-Cigarette/Vaping Use: Never Used Current occupational status: retired Cognitive needs: No Hearing needs: No Vision needs: No Review of Systems Const Denies chills, Denies fatigue, Denies fever(s), Denies frequent falls, Denies weakness, Denies weight gain and Denies weight loss ENT Denies dizziness Card Denies chest pain, Denies leg edema, Denies lightheadedness, Denies palpitations, Denies dyspnea and Denies dyspnea on exertion Resp Denies cough, Denies dyspnea and Denies dyspnea on exertion GI Denies hematochezia Musc Denies abnormal gait, Denies muscle weakness, Denies numbness, Denies radiating pain into limb and Denies tingling Neuro Denies abnormal gait, Denies dizziness, Denies frequent falls, Denies numbness, Denies tingling and Denies weakness Endo Denies fatigue and Denies palpitations Physical Exam Vital Signs: Last Vital Signs Pulse 73 11/20/23 10:49 BP 130/72 11/20/23 10:49 BMI result Body Mass Index 23.2 GENERAL APPEARANCE: in no acute distress, pleasant. NECK: no carotid bruit, no jugular venous distention. SKIN: no suspicious lesions, warm and dry. HEART: no murmurs, regular rate and rhythm. LUNGS: clear to auscultation bilaterally. ABDOMEN: soft, nontender. EXTREMITIES: no edema. PERIPHERAL PULSES: equal. NEUROLOGIC: No gross deficits, AAO X 3 Assessment & Plan Assessment & Plan (1) LBBB (left bundle branch block): Code(s): I44.7 - Left bundle-branch block, unspecified Category: Medical (2) Cardiomyopathy: Code(s): I42.9 - Cardiomyopathy, unspecified Category: Medical Plan 73-year-old gentleman for follow-up. He has known history of coronary artery disease previous LAD PCI clinically has stable angina currently. Blood pressure is well controlled. Echo previously showed low normal ejection fraction. Repeat echocardiography to for normal ejection fraction without any change in EF. He has a left bundle- branch block. No symptoms/signs of heart failure. Overall stable and will follow-up with us in few months. Thank you for allowing me to participate in the care of your patient. Please feel free to contact me if you have any questions. Medications: Refilled amlodipine-olmesartan 10-40 mg 1 tab PO DAILY 90 tabs 5RF Coding Level of Care Code Est Pt Level 4 (95445) Diagnoses LBBB (left bundle branch block) I44.7 Cardiomyopathy I42.9
== END 2023-11-20 11:16 | disposition home or self-care (01) ==
PROVIDERS: PCP Internal Medicine; Visit Provider Internal Medicine Cardiovascular Disease
DX: I44.7 Left bundle-branch block, unspecified (principal); I42.9 Cardiomyopathy, unspecified
CPT/HCPCS: 99214

== ENCOUNTER → 2023-11-20 10:45 | Outpatient (BNVA) | payer MEDICARE, MEDICAID, SELFPAY | PROVIDERS: PCP Internal Medicine; Visit Provider Internal Medicine Cardiovascular Disease | DX: I44.7 Left bundle-branch block, unspecified (principal); I42.9 Cardiomyopathy, unspecified; Z79.899 Other long term (current) drug therapy | CPT/HCPCS: 99212 ==

== ENCOUNTER 2023-11-23 12:37 | Outpatient (AMB) | payer MEDICARE, MEDICAID, SELFPAY ==
--- NOTE | 2023-11-23 13:24 | A.OFFPC_ITS ---
Vital Signs 11/23/23 13:25 Height 5 ft 7 in Weight 147 lb BMI 23.0 BP 122/68 Blood Pressure Location Rt brachial Position Sitting Pulse 59 Pulse Source Pulse Oximeter Pulse Oximetry (%) 97 Oxygen Delivery Method Room Air Intake Visit Reasons: Annual PE Intake Note: Pt is here today for PE. Allergies atropine [ATROPINE] Allergy (Unknown, Verified 11/23/23 13:27) SEIZURE Medication List - Last Reconciled 11/23/23 by Marleni Karimi MD amlodipine-olmesartan 10-40 mg 1 tab PO DAILY aspirin (Adult Low Dose Aspirin) 81 mg PO DAILY Breo Ellipta 100-25 mcg/dose (fluticasone furoate-vilanterol) 1 inh inhalation DAILY NS clonazepam 1 mg PO BEDTIME lidocaine 5% 1 appl topical BID rosuvastatin 20 mg PO DAILY Symbicort 160-4.5 mcg/actuation (budesonide-formoterol) 2 puffs inhalation BID NS Tobacco use date assessed: 11/23/23 Fall risk assessment: No Falls in past year Last assessed Fall Risk: 11/23/23 Dental Screening Dental Screen Date: 11/23/23 Did you have a dental visit in the last 12 months?: No Did you have a dental problem in the last 6 months where you did not have access to dental care?: No Was dental information given to patient?: Patient has dentist HPI Annual PE HPI Details Pt presents for PE. [facility] Medical History COVID-19 vaccine series completed HTN (hypertension) COPD (chronic obstructive pulmonary disease) Esophageal stricture Celiac disease Insomnia Hyperlipidemia Anxiety Coronary artery disease Stable angina Hypertension Surgical History History of coronary artery stent placement H/O colonoscopy History of esophagogastroduodenoscopy (EGD) Family History Father Colon cancer Mother Cancer Paternal Grandfather Cancer Social History Housing: House Are you a primary director of primary care to a significant other at home: No Do you presently have visiting nurse or other home services: No Patient Tobacco Use Status: Never used Tobacco e-Cigarette/Vaping Use: Never Used service: No Current occupational status: retired Cognitive needs: No Hearing needs: No Vision needs: No Questionnaire PHQ-9 Over the last 2 weeks, how often have you been bothered by any of the following problems? 1. Little interest or pleasure in doing things: not at all 2. Feeling down, depressed, or hopeless: not at all 3. Trouble falling or staying asleep, or sleeping too much: several days 4. Feeling tired or having little energy: several days 5. Poor appetite or overeating: not at all 6. Feeling bad about yourself - or that you are a failure or have let yourself or your family down: not at all 7. Trouble concentrating on things, such as reading the newspaper or watching television: not at all 8. Moving or speaking so slowly that other people could have noticed. Or the opposite - being so fidgety or restless that you have been moving around a lot more than usual: not at all 9. Thoughts that you would be better off or of hurting yourself in some way: not at all Total score: 2 Depression Screening Interpretation: Negative Depression Screening Done: Yes Source: Developed by Drs. Santino Rodriguez, Cielo Matute, Ike Breen and colleagues, with an educational jose from [employer]. Thrive Questionnaire Date Thrive assessed: 11/23/23 I am a: Patient What is your living situation today?: I have a steady place to live Within the past 12 months, did the food you bought not last and you didn't have the money to get more?: Never true Within the past 12 months, did you worry whether your food would run out before you got money to buy more?: Never true Do you have trouble paying for medicines?: No Do you have trouble getting transportation to medical appointments?: No Do you have trouble paying your heating and electricity bill?: No Do you have trouble taking care of your child, family member or friend?: No Do you have trouble with day-to-day activities such as bathing, preparing meals, shopping, managing finances, etc.?: No Are you currently unemployed and looking for a job?: No Are you interested in more education?: No Please select the resources that you would like help with: None THRIVE Score: 0 AUDIT C Alcohol Use Questionnaire (AUDIT-C) 1. How often do you have a drink containing alcohol?: Monthly or less Total Score: 1 JM-7 AMB Questionnaire JM-7 Date JM - 7 assessed: 11/23/23 Feeling nervous, anxious, or on edge: 0 = Not at all Not being able to stop or control worryin = Not at all Worrying too much about different things: 0 = Not at all Trouble relaxin = Not at all Being so restless that it is hard to sit still: 0 = Not at all Becoming easily annoyed or irritable: 0 = Not at all Feeling afraid as if something awful might happen: 0 = Not at all Total JM-7 score (0-4 normal; 5-9 mild; 10-14 moderate; 15-21 severe): 0 Source: Developed by Drs. Santino Rodriguez, Cielo Matute, Ike Breen and colleagues, with an educational jose from [employer]. Review of Systems Const All systems reviewed & are unremarkable except as noted in HPI and below Reports no additional complaints ENT Reports no additional complaints Card Reports no additional complaints Resp Reports no additional complaints GI Reports no additional complaints Reports no additional complaints Physical exam (Primary Care) Vital Signs: Last Vital Signs Pulse 59 11/23/23 13:25 BP 122/68 11/23/23 13:25 Pulse Ox 97 11/23/23 13:25 Oxygen Delivery Method Room Air 11/23/23 13:25 BMI result Body Mass Index 23.0 Tobacco/Smoking Status: Tobacco use Status Tobacco use date assessed 11/23/23 11/23/23 13:30 Patient Tobacco Use Status Never used Tobacco 11/23/23 13:30 e-Cigarette/Vaping Use Never Used 11/23/23 13:25 PHQ-9: PHQ-9 Score PHQ-9: Total score 2 11/23/23 13:31 Depression Screening Interpretation: Negative Thrive Assessment: Date of Thrive Assessment Date Thrive assessed 11/23/23 11/23/23 13:31 Const General: no acute distress HENMT Head: Yes normal to inspection Mouth: Normal oral and palatal mucosa present Throat: Yes posterior oropharynx normal Eyes General: appearance normal, both eyes and all related structures Neck Neck: Yes no lymphadenopathy and Yes supple Resp Effort & Inspection: normal respiratory effort Auscultation: clear to auscultation bilaterally Cardio Rhythm: regular rhythm Heart sounds: S1 normal heart sound present and S2 normal heart sound present GI Inspection: Yes normal to inspection Palpation (GI): Soft to palpation Percussion: Yes normal to percussion Auscultation: normal bowel sounds Assessment and Plan Assessment & Plan (1) Hypertension: Comment: Stable Code(s): I10 - Essential (primary) hypertension Plan: Continue current medications (2) Stable angina: Comment: He is status post LAD PCI. He is stable. Code(s): I20.8 - Other forms of angina pectoris Plan: Follow-up with Cardiology, increase Crestor to 40 mg a day check lipid profile in 1 month for the goal of LDL less than 55 (3) Annual physical exam: Code(s): Z00.00 - Encounter for general adult medical examination without abnormal findings Plan: Well-balanced diet regular physical activity discussed with the patient, he is up-to-date with colonoscopy (4) BPH (benign prostatic hyperplasia): Comment: s/p TURP, patient declined PSA Code(s): N40.0 - Benign prostatic hyperplasia without lower urinary tract symptoms Orders: Orders Lipid Panel 1 Month I10 - Essential (primary) hypertension, I20.8 - Other forms of angina pectoris, Z00.00 - Encounter for general adult medical examination without abnormal findings Comprehensive [place]. Panel Fast 6 Months E78.5 - Hyperlipidemia, unspecified, F41.9 - Anxiety disorder, unspecified, I10 - Essential (primary) hypertension, N40.0 - Benign prostatic hyperplasia without lower urinary tract symptoms Complete Blood Count Auto Diff 6 Months E78.5 - Hyperlipidemia, unspecified, F41.9 - Anxiety disorder, unspecified, I10 - Essential (primary) hypertension, N40.0 - Benign prostatic hyperplasia without lower urinary tract symptoms Lipid Panel 6 Months E78.5 - Hyperlipidemia, unspecified, F41.9 - Anxiety disorder, unspecified, I10 - Essential (primary) hypertension, N40.0 - Benign prostatic hyperplasia without lower urinary tract symptoms Coding Level of Care Code Est Pt Prev Care >65y(56167) Diagnoses Hypertension I10 Stable angina I20.8 Annual physical exam Z00.00 BPH (benign prostatic hyperplasia) N40.0 Additional Codes PHQ-9 - 00459 - PHQ-9 Billing: [id number])
[2023-11-23 13:25] VITALS: BP 122/68; PULSE 59; O2SAT 97; BMI 23.0
== END 2023-11-23 14:15 | disposition home or self-care (01) ==
PROVIDERS: Visit Provider Internal Medicine
DX: I10 Essential (primary) hypertension (principal); I20.89 Other forms of angina pectoris; Z00.00 Encounter for general adult medical examination without abnormal findings; N40.0 Benign prostatic hyperplasia without lower urinary tract symptoms
CPT/HCPCS: 99397

== ENCOUNTER 2024-03-20 09:30 | Outpatient (AMB) | payer MEDICARE, MEDICAID, SELFPAY ==
--- NOTE | 2024-03-20 09:34 | A.OFFVIS_ITS ---
Vital Signs 03/20/24 09:35 Height 5 ft 7 in Weight 142 lb 6.698 oz BMI 22.3 BP 130/80 Blood Pressure Location Lt brachial Position Sitting Pulse 67 Pulse Source Monitor Intake Visit Reasons: 4 mth f/up Intake Note: 4 mth f/up Gas Pump Attendant Required: No Accompanied by: Self / Same As Patient Allergies atropine [ATROPINE] Allergy (Unknown, Verified 11/23/23 13:27) SEIZURE Medication List - Last Reconciled 03/20/24 by Isaias Yung MD amlodipine-olmesartan 10-40 mg 1 tab PO DAILY aspirin (Adult Low Dose Aspirin) 81 mg PO DAILY Breo Ellipta 100-25 mcg/dose (fluticasone furoate-vilanterol) 1 inh inhalation DAILY NS clonazepam 1 mg PO BEDTIME lidocaine 5% 1 appl topical BID rosuvastatin 20 mg PO DAILY Symbicort 160-4.5 mcg/actuation (budesonide-formoterol) 2 puffs inhalation BID NS HPI Comments Details: 73 year gentleman is here for follow-up. He has background history of LAD PCI In the past. He had cardiac catheterization recently which did not show any significant disease and patent LAD stent was noticed. He has been doing well. He has been active and walking daily without any exertional chest discomfort shortness of breath. He is saying his insomnia is better to since he started walking and doing some exercise. Blood pressure control is good. 05/08/2023: He returns for follow-up. He is complaining of shortness of breath when he is playing ping-pong and pickle ball. He is saying this is a fairly new symptom for him. He is denying any chest discomfort. He has left bundle-branch block on the ECG. 08/07/2023: He returns for follow-up. Denying any chest discomfort shortness of breath. He is saying that breathing is better with inhalers. He has been using clonazepam for long time it was prescribed by a neurologist at [facility]. He is saying that his doctor from [facility] has left and he will be running out of clonazepam. He had echocardiogram performed which showed low normal ejection fraction. ECHO was performed because he has left bundle-branch block. Overall otherwise stable. 11/20/23: He returns for follow-up. He had echocardiography performed on 11/07/2023 showing low normal ejection fraction 51% by biplane method. Paradoxical septal motion due to left bundle-branch block. No significant change in ejection fraction compared to before. Denying any symptoms. 03/20/24: He is here for follow-up. EKGs showing left bundle-branch block as before. Blood pressure is 130/80. Clinically stable. No chest discomfort shortness of breath. No symptoms/signs of heart failure. [facility] Medical History COVID-19 vaccine series completed HTN (hypertension) COPD (chronic obstructive pulmonary disease) Esophageal stricture Celiac disease Insomnia Hyperlipidemia Anxiety Coronary artery disease Stable angina Hypertension Surgical History History of coronary artery stent placement H/O colonoscopy History of esophagogastroduodenoscopy (EGD) Family History Father Colon cancer Mother Cancer Paternal Grandfather Cancer Social History Housing: House Are you a primary child day care center worker to a significant other at home: No Do you presently have visiting nurse or other home services: No Patient Tobacco Use Status: Never used Tobacco e-Cigarette/Vaping Use: Never Used service: No Current occupational status: retired Cognitive needs: No Hearing needs: No Vision needs: No Review of Systems Const Denies chills, Denies fatigue, Denies fever(s), Denies frequent falls, Denies weakness, Denies weight gain and Denies weight loss ENT Denies dizziness Card Denies chest pain, Denies leg edema, Denies lightheadedness, Denies palpitations, Denies dyspnea and Denies dyspnea on exertion Resp Denies cough, Denies dyspnea and Denies dyspnea on exertion GI Denies hematochezia Musc Denies abnormal gait, Denies muscle weakness, Denies numbness, Denies radiating pain into limb and Denies tingling Neuro Denies abnormal gait, Denies dizziness, Denies frequent falls, Denies numbness, Denies tingling and Denies weakness Endo Denies fatigue and Denies palpitations Physical Exam Vital Signs: Last Vital Signs Pulse 67 03/20/24 09:35 BP 130/80 03/20/24 09:35 BMI result Body Mass Index 22.3 GENERAL APPEARANCE: in no acute distress, pleasant. NECK: no carotid bruit, no jugular venous distention. SKIN: no suspicious lesions, warm and dry. HEART: no murmurs, regular rate and rhythm. LUNGS: clear to auscultation bilaterally. ABDOMEN: soft, nontender. EXTREMITIES: no edema. PERIPHERAL PULSES: equal. NEUROLOGIC: No gross deficits, AAO X 3 Office Procedures EKG Details: Sinus rhythm 67 beats per minute, normal axis, left bundle-branch block, QRS duration 166, QTC 483 milliseconds. [id number], Complete Assessment & Plan Assessment & Plan (1) Cardiomyopathy: Code(s): I42.9 - Cardiomyopathy, unspecified Category: Medical (2) LBBB (left bundle branch block): Code(s): I44.7 - Left bundle-branch block, unspecified Category: Medical (3) Stable angina: Comment: He is status post LAD PCI. He is stable. Code(s): I20.8 - Other forms of angina pectoris Category: Medical Plan Pleasant 73 year gentleman who is here for follow-up. He has known history of coronary artery disease with previous LAD PCI. He subsequently had repeat angio because he was complaining of some shortness of breath and chest discomfort and we did not find any significant disease at that time. He has developed left bundle-branch block and is ejection fraction by echocardiography is low normal at 51%. He has no symptoms/signs of heart failure. I have explained to him that with left bundle-branch block sometime cardiomyopathy can develop and progress and we need to survey him with echocardiography periodically. He will also watch for symptoms/signs of heart failure which I have explained to him in detail. Currently stable and active. He plays ping-pong with his friends and denying any symptoms with activities of daily living. Blood pressure well controlled. He will see us back in 6 months. Thank you for allowing me to participate in the care of your patient. Please feel free to contact me if you have any questions. Coding Level of Care Code Est Pt Level 4 (71843) Diagnoses Cardiomyopathy I42.9 LBBB (left bundle branch block) I44.7 Stable angina I20.8 CPT Codes EKG - CPT: 82370-[id number], Complete ([id number])
[2024-03-20 09:35] VITALS: BP 130/80; PULSE 67; BMI 22.3
== END 2024-03-20 09:56 | disposition home or self-care (01) ==
PROVIDERS: PCP Internal Medicine; Visit Provider Internal Medicine Cardiovascular Disease
DX: I42.9 Cardiomyopathy, unspecified (principal); I44.7 Left bundle-branch block, unspecified; I20.89 Other forms of angina pectoris
CPT/HCPCS: 93010; 99214

== ENCOUNTER → 2024-03-20 09:30 | Outpatient (BNVA) | payer MEDICARE, MEDICAID, SELFPAY | PROVIDERS: PCP Internal Medicine; Visit Provider Internal Medicine Cardiovascular Disease | DX: I42.9 Cardiomyopathy, unspecified (principal); I44.7 Left bundle-branch block, unspecified; I20.89 Other forms of angina pectoris | CPT/HCPCS: 93005; 99212 ==

== ENCOUNTER 2024-10-15 09:34 | Emergency (ER) | payer MEDICARE, MEDICAID, SELFPAY ==
--- NOTE | ~2024-10-15 | CT_ITS ---
EXAMINATION: CT HEAD WITHOUT IV CONTRAST HISTORY: right sided facial droop. TECHNIQUE: Unenhanced helical CT of the head was performed per standard departmental protocol. Coronal and sagittal reformats of the head were also evaluated. One or more of the following techniques was used for dose reduction: Automated exposure control, adjustment of the mA and/or kV according to patient size, use of iterative reconstruction technique. DLP: 748 mGy-cm COMPARISON: There are no prior studies for comparison. FINDINGS: BRAIN: There is diffuse prominence of the ventricular system and cortical sulci, consistent with atrophy. Avalos/white differentiation is normal. There is no mass effect or midline shift. No intra- or extra-axial fluid collections are identified. SINUSES: There is mucosal thickening in the right maxillary sinus. Rounded soft tissue densities in the right maxillary sinus are consistent with polyps versus mucous retention cysts. The mastoid air cells and middle ear cavities are well pneumatized. ORBITS: The visualized orbits are unremarkable. BONES/SOFT TISSUES: The extracranial soft tissues are unremarkable. The calvarium is intact. No suspicious lytic or sclerotic lesions. CT/CT head/brain wo IV con IMPRESSION: No acute intracranial abnormality. Electronically signed by: Santino Cardoza MD 10/15/2024 10:38 AM EDT
[2024-10-15 09:37] VITALS: BP 167/83; PULSE 74; RESP 18; TEMP 36.4; O2SAT 96; BMI 21.4
--- NOTE | 2024-10-15 09:51 | ECG_ITS ---
Test Reason : neuro Blood Pressure : */* mmHG Vent. Rate : 72 BPM Atrial Rate : 72 BPM P-R Int : 166 ms QRS Dur : 166 ms QT Int : 450 ms P-R-T Axes : 74 -27 182 degrees QTcB Int : 492 ms Normal sinus rhythm Left bundle branch block Abnormal ECG When compared with ECG of 24-Jan-2020 14:37, Left bundle branch block is now Present Referred By: Yseica Hanks Electronically Signed By: BERNARDINO DUQUE MD
--- NOTE | 2024-10-15 10:03 | ED_ITS ---
HPI - Neuro Symptoms/Deficit General Chief Complaint: Neuro Symptoms/Deficit Stated Complaint: quest of stroke Time Seen by Provider: 10/15/24 09:50 Source: patient, family, RN notes reviewed and old records reviewed Mode of arrival: ambulatory Limitations: no limitations History of Present Illness ED Provider: Demario HPI Narrative: Patient is a 74-year-old male with history of cardiomyopathy, LBBB, BPH, s/p angioplasty, COPD, CAD, HTN presenting to the emergency department with complaint of right sided facial droop and inability to close right eye since noon time yesterday. states that he did not notify her of any of his symptoms until today. Complains of some blurred vision to right eye. Also states he is unable to taste on the right side of his tongue. Reports mild headache. States he has been doing yardwork cleaning up brush and cutting branches, etc. Denies any known tick bites or rashes. Denies recent dental work. Denies recent fall or other trauma. Not anticoagulated. Denies any weakness, numbness, tingling to extremities. Denies fevers or other systemic symptoms. Onset (ago): hour(s) Timing confirmed by: spouse Location: right face History of same: No Related Data Home Medications ?Medication ?Instructions ?Recorded ?Confirmed aspirin 81 mg tablet,delayed 81 mg PO DAILY 05/07/20 03/20/24 release (Adult Low Dose Aspirin) clonazepam 1 mg tablet 1 mg PO BEDTIME 08/19/21 03/20/24 Previous Rx's ?Medication ?Instructions ?Recorded lidocaine 5 % topical cream 1 appl topical BID #15 grams 11/30/22 Breo Ellipta 100 mcg-25 mcg/dose 1 inh inhalation DAILY #60 ea 11/13/23 powder for inhalation (fluticasone furoate-vilanterol) amlodipine 10 mg-olmesartan 40 mg 1 tab PO DAILY #90 tabs 02/08/24 tablet rosuvastatin 20 mg tablet 20 mg PO DAILY #90 tabs 02/11/24 loratadine 10 mg tablet 10 mg PO DAILY #90 tabs 04/12/24 budesonide-formoterol HFA 160 2 puff inhalation BID #10.2 grams 08/16/24 mcg-4.5 mcg/actuation aerosol inhaler (Symbicort) prednisone 20 mg tablet 60 mg (3 x 20 mg) PO DAILY 7 days 10/15/24 #21 tabs valacyclovir 1 gram tablet 1,000 mg PO TID 7 days #21 tabs 10/15/24 Allergies Allergy/AdvReac Type Severity Reaction Status Date / Time atropine [ATROPINE] Allergy Unknown SEIZURE Verified 10/15/24 09:41 Review of Systems 2 Review of Systems: Yes all other systems are reviewed and are negative Constitutional: Constitutional: Reports as per [facility] Past Medical History Medical History COVID-19 vaccine series completed HTN (hypertension) COPD (chronic obstructive pulmonary disease) Esophageal stricture Celiac disease Insomnia Hyperlipidemia Anxiety Coronary artery disease Stable angina Hypertension Surgical History History of coronary artery stent placement H/O colonoscopy History of esophagogastroduodenoscopy (EGD) Family History Family History Father Colon cancer Mother Cancer Paternal Grandfather Cancer Social History Social History Housing: House Are you a primary transitional care liaison to a significant other at home: No Do you presently have visiting nurse or other home services: No Patient Tobacco Use Status: Never used Tobacco e-Cigarette/Vaping Use: Never Used Advance Directives: No Advance Directives Information Provided: Yes service: No Current occupational status: retired Cognitive needs: No Hearing needs: No Vision needs: No Physical Exam 2 Vital Signs: Vital Signs: Last Vital Signs Temp 98.1 F 10/15/24 10:36 Pulse 58 10/15/24 10:36 Resp 16 10/15/24 10:36 BP 137/67 10/15/24 10:36 Pulse Ox 97 10/15/24 10:36 O2 Del Method Room Air 10/15/24 10:36 BMI result Body Mass Index 21.4 Vital signs have been reviewed and appear to be correct. Blood pressure normal. Heart rate normal. Respiratory rate normal. Temperature normal. Oxygen saturation normal. Const: General: cooperative, healthy appearing and no acute distress O rientation/consciousness: oriented to person, oriented to place, oriented to time and patient oriented x3 Limitations: no limitations HEENT: Head: Yes normocephalic and Yes atraumatic Ears: external ears normal, TM's normal bilaterally and EAC's normal General nose exam: Normal external nose present Face and sinus: No face symmetric (right facial droop, unable to close R eye or move R eyebrow) Mouth: oropharynx normal and moist mucous membranes Throat: Yes uvula midline Eyes: Visual Corona: normal visual corona by confrontation Alignment and Position: alignment normal and position normal Eyelids: Yes other (unable to close right eyelid) Corneas: corneas normal and fluorescein used Pupils: E qual, round and reactive pupils present EOM: EOMs intact bilaterally D irect Ophthalmoscopy: normal light reflex and no photophobia Neck: Neck: Yes normal visual inspection and Yes supple Resp: Effort & Inspection: normal respiratory effort and able to speak in complete sentences Auscultation: clear to auscultation bilaterally Cardio: Rate: regular rate Rhythm: regular rhythm Heart sounds: S1 normal heart sound present and S2 normal heart sound present GI: Palpation (GI): Soft to palpation and nontender Auscultation: n ormoactive bowel sounds : General: Yes no CVA tenderness Back/Spine/Pelvis: Back: no CVA tenderness Skin: General skin exam: elasticity normal and turgor normal Neuro: General: oriented to person, oriented to place, oriented to time, patient oriented x3, moves all extremities and no focal motor deficits C ranial nerves: Yes Equal, round and reactive pupils present, Yes Bilaterally intact EOM present, Yes Nystagmus not present and Yes Individual cranial nerve findings present VII: abnormal (right ) Cognition (Neuro): normal cognition Extrem: General: Yes full ROM, Yes no pedal edema and Yes no calf tenderness Psych: Mental Status: mental status grossly normal Affect: normal affect Thought process: Normal thought process present Medical Decision Making Medical Decision Making MDM Narrative: Patient is a 74-year-old male with history of cardiomyopathy, LBBB, BPH, s/p angioplasty, COPD, CAD, HTN presenting to the emergency department with complaint of right sided facial droop and inability to close right eye since noon time yesterday. On exam patient is awake, A+Ox3, VS WNL, afebrile, normal neurological exam without focal deficits, physical exam findings as above. Given reported symptoms and physical exam findings, initial differential includes but is not limited to Rodriguez's Palsy, herpes zoster, Lyme disease. No evidence of AOM, mastoiditis, cholesteatoma. No corneal abrasion on Aly lamp exam. Unlikely CVA/ICH but will obtain CT head. Labs unremarkable, tick panel pending. CT head notable for no acute abnormalities. My interpretation is in agreement with the radiologist's interpretation. Patient also assessed by Dr. Covington who is in agreement that presentation is consistent with Brook. Diagnosis discussed with patient. Will discharge home on prednisone and valacyclovir. Will wait for tick panel prior to initiating treatment with doxycycline. Discussed with patient that he should tape his right eye shut while sleeping to prevent injury. Return precautions discussed. Patient verbalized understanding of and agreement with plan. Differential Diagnosis Differential Diagnoses: The differential diagnosis associated with the presentation includes As per [facility] Admission/Observation Consideration of admission/observation: Escalation of care including admission/observation considered Patient would have been admitted to the hospital had their work up had any findings where hospital admission was appropriate and their clinical presentation warranted hospital admission. Lab Data [facility] Lab Attestation statement: I reviewed the patient's lab results. As per [facility] 10/15/24 10:07 10/15/24 10:07 Labs: Lab Results 10/15/24 Range/Units 10:07 WBC 3.8 L (4.8-10.8) X10*3/uL RBC 4.40 L (4.60-5.80) X10*6/uL Hgb 14.0 (14.0-18.0) g/dl Hct 40.2 L (42.0-52.0) % MCV 91.4 (80.0-98.0) fL MCH 31.8 (27.0-33.0) pg MCHC 34.8 (31.0-36.0) g/dl RDW 12.9 (11.0-16.0) % Plt Count 165 (160-400) X10*3/uL MPV 9.5 (9.4-12.4) fL Immature Gran % (Auto) 0.3 (0.0-0.4) % Neut % (Auto) 64.8 (45-73) % Lymph % (Auto) 22.9 (20-40) % Ren[place] % (Auto) 8.8 (2-11) % Eos % (Auto) 2.7 (0-4) % Baso % (Auto) 0.5 (0-2) % Lymph # (Auto) 0.9 L (1.2-4.9) X10*3/uL Ren[place] # (Auto) 0.3 (0.1-1.2) X10*3/uL Eos # (Auto) 0.1 (0.0-0.4) X10*3/uL Baso # (Auto) 0.0 (0.0-0.2) X10*3/uL Abs Immat Gran (auto) 0.01 (0.00-0.03) X10*3/uL Absolute Neuts (auto) 2.4 (2.0-8.3) x10*3/uL Absolute Nucleated RBC 0.000 (0.0-0.012) X10*3/uL Nucleated RBC % (auto) 0.0 (0.0-0.2) /100WBC PT 12.6 H (10.9-12.4) SEC INR 1.1 (0.9-1.1) Sodium 140 (135-145) mmol/L Potassium 4.1 (3.3-5.1) mmol/L Chloride 110 H (96-108) mmol/L Carbon Dioxide 26 (22-29) mmol/L Anion Gap 8 L (12-20) BUN 12 (9-16) mg/dL Creatinine 1.02 (0.5-1.4) mg/dL Estim Creat Clear Calc 58.9 Estimated GFR > 60 Random Glucose 114 (60-115) mg/dL Calcium 9.6 (8.4-10.2) mg/dL Total Bilirubin 0.9 (0.0-1.0) mg/dL AST 35 (5-37) U/L ALT 34 (0-40) U/L Alkaline Phosphatase 46 (39-117) U/L Total Protein 7.1 (6.5-8.0) g/dL Albumin 4.1 (3.5-5.0) g/dL Independent Interpretation I performed an independent interpretation of an: CT Scan Interpretation: No acute abnormalities CT head. Radiology Impression Discussion of test interpretation with radiology: I have reviewed the radiologist's reading. Radiologist Impression: EXAMINATION: CT HEAD WITHOUT IV CONTRAST HISTORY: right sided facial droop. TECHNIQUE: Unenhanced helical CT of the head was performed per standard departmental protocol. Coronal and sagittal reformats of the head were also evaluated. One or more of the following techniques was used for dose reduction: Automated exposure control, adjustment of the mA and/or kV according to patient size, use of iterative reconstruction technique. DLP: 748 mGy-cm COMPARISON: There are no prior studies for comparison. FINDINGS: BRAIN: There is diffuse prominence of the ventricular system and cortical sulci, consistent with atrophy. Avalos/white differentiation is normal. There is no mass effect or midline shift. No intra- or extra-axial fluid collections are identified. SINUSES: There is mucosal thickening in the right maxillary sinus. Rounded soft tissue densities in the right maxillary sinus are consistent with polyps versus mucous retention cysts. The mastoid air cells and middle ear cavities are well pneumatized. ORBITS: The visualized orbits are unremarkable. BONES/SOFT TISSUES: The extracranial soft tissues are unremarkable. The calvarium is intact. No suspicious lytic or sclerotic lesions. CT/CT head/brain wo IV con IMPRESSION: No acute intracranial abnormality. Independent Historian Clinical information obtained from an independent historian. History obtained from or confirmed by: Spouse External Record Review External record reviewed: Inpatient record, Office record and Outpatient record Prescription Management I considered prescription management with: Antiviral and Other NIH Stroke Scale Internal: Initial- Upon Arrival Time: 09:50 Level of Consciousness: Alert Level of Consciousness Questions: Answers both questions correctly Level of Consciousness Commands: Performs both tasks correctly Best Gaze: Normal Visual: No visual loss Facial Palsy: Complete paralysis Motor Arm (Right): No drift Motor Arm (Left): No drift Motor Leg (Right): No drift Motor Leg (Left): No drift Limb Ataxia: Absent Sensory: Normal Best Language: No aphasia Dysarthia: Normal Extinction and Inattention: No abnormality Score: 3 Discharge Plan Discharge Clinical Impression: Rodriguez's palsy Patient Disposition: Home, Self-Care Instructions: Rodriguez Palsy (ED) Additional Instructions: You were evaluated in the emergency department today for right sided facial droop which is due to Rodriguez Palsy. Your symptoms are due to inflammation of your facial nerve. The CT scan of your brain was normal. You are being treated with a course of steroids to decrease inflammation. You are also being treated with valcyclovir, which is an antiviral medication. You were tested for tick- borne illnesses, and the results are pending. You will be called with any positive results. We recommend that you follow up with your eye doctor, if you do not have one, you can follow up with Dr. Lewis. As discussed, tape your eye shut with a small piece of tape while sleeping to prevent accidental injury to your eye since it is unable to stay closed. Follow up with your primary care provider. It may take several weeks for your symptoms to fully resolve. Return to the emergency department if you develop new weakness, numbness, or tingling to your extremities, confusion, fever, difficulty walking, slurred speech, or any other new or concerning symptoms. Prescriptions: New valacyclovir 1 gram tablet 1,000 mg PO TID 7 Days Qty: 21 0RF prednisone 20 mg tablet 60 mg PO DAILY 7 Days Qty: 21 0RF No Action fluticasone furoate-vilanterol [Breo Ellipta] 100-25 mcg/dose blister with device 1 inh inhalation DAILY Qty: 60 5RF amlodipine-olmesartan 10-40 mg tablet 1 tab PO DAILY Qty: 90 3RF rosuvastatin 20 mg tablet 20 mg PO DAILY Qty: 90 3RF loratadine 10 mg tablet 10 mg PO DAILY Qty: 90 1RF budesonide-formoterol [Symbicort] 160-4.5 mcg/actuation HFA aerosol inhaler 2 puff inhalation BID Qty: 10.2 5RF lidocaine 5 % cream 1 appl topical BID Qty: 15 0RF clonazepam 1 mg tablet 1 mg PO BEDTIME aspirin [Adult Low Dose Aspirin] 81 mg tablet,delayed release (DR/EC) 81 mg PO DAILY Referrals: Franklin Lewis [Physician] - 1 week (Brook Palsy, R eye affected) Print Language: Setswana
[2024-10-15 10:26] LABS: MANUAL DIFF FLAG NO
[2024-10-15 10:29] LABS: Basophils Percent Auto 0.5 % (0-2); Eosinophils Absolute Auto 0.1 X10*3/uL (0.0-0.4); Eosinophils Percent Auto 2.7 % (0-4); Hematocrit 40.2 % (42.0-52.0); Imm Gran Abs Auto 0.01 X10*3/uL (0.00-0.03); Imm Gran Pct Auto 0.3 % (0.0-0.4); Lymphocytes Absolute Auto 0.9 X10*3/uL (1.2-4.9); Lymphocytes Percent Auto 22.9 % (20-40); Mean Corpuscular HGB Conc 34.8 g/dl (31.0-36.0); Mean Corpuscular Hemoglobin 31.8 pg (27.0-33.0); Mean Corpuscular Volume 91.4 fL (80.0-98.0); Mean Platelet Volume 9.5 fL (9.4-12.4); Monocytes Absolute Auto 0.3 X10*3/uL (0.1-1.2); Monocytes Percent Auto 8.8 % (2-11); Neutrophils Absolute Auto 2.4 x10*3/uL (2.0-8.3); Neutrophils Percent Auto 64.8 % (45-73); Platelet Count 165 X10*3/uL (160-400); Red Cell Distribution Width 12.9 % (11.0-16.0); White Blood Count 3.8 X10*3/uL (4.8-10.8)
[2024-10-15 10:36] VITALS: BP 137/67; PULSE 58; RESP 16; TEMP 36.7; O2SAT 97
[2024-10-15 10:48] LABS: Alanine Aminotransferase 34 U/L (0-40); Albumin Level 4.1 g/dL (3.5-5.0); Alkaline Phosphatase 46 U/L (39-117); Anion Gap 8 (12-20); Aspartate Amino Transferase 35 U/L (5-37); Bilirubin Total 0.9 mg/dL (0.0-1.0); Blood Urea Nitrogen 12 mg/dL (9-16); Calcium 9.6 mg/dL (8.4-10.2); Carbon Dioxide 26 mmol/L (22-29); Chloride 110 mmol/L (96-108); Creatinine Clr Calc Pharmacy 58.9; Estimated Glomerular Filt Rate > 60; Glucose Random 114 mg/dL (60-115); Potassium 4.1 mmol/L (3.3-5.1); Sodium 140 mmol/L (135-145); Total Protein 7.1 g/dL (6.5-8.0)
[2024-10-15 10:49] LABS: INTERNATIONAL NORM RATIO 1.1 (0.9-1.1); Prothrombin Time 12.6 SEC (10.9-12.4)
[2024-10-15 12:11] VITALS: BP 145/73; PULSE 61; RESP 16; TEMP 37.1; O2SAT 95
[2024-10-15] MEDS: Fluorescein Sodium STRIP 1 STRIP EYE-RIGHT (12:14)
[2024-10-16 19:04] LABS: A. Phagocytphilium DNA,RT-PCR NOT DETECTED (NOT DETECTED); Babesia Microti DNA, RT-PCR NOT DETECTED (NOT DETECTED); Borrelia Miyamotoi,DNA RT-PCR NOT DETECTED (NOT DETECTED); E.Chaffeensis DNA RT-PCR NOT DETECTED (NOT DETECTED); Lyme(Borrelia ssp)DNA RT-PCR NOT DETECTED (NOT DETECTED)
== END 2024-10-15 12:12 | disposition home or self-care (01) ==
PROVIDERS: Registered Nurse Emergency; Emergency Provider Emergency Medicine Emergency Medical Services; PCP Internal Medicine
DX: G51.0 Bell's palsy (principal); H53.8 Other visual disturbances; R51.9 Headache, unspecified; I10 Essential (primary) hypertension; J44.9 Chronic obstructive pulmonary disease, unspecified; I25.10 Atherosclerotic heart disease of native coronary artery without angina pectoris; Z79.899 Other long term (current) drug therapy
CPT/HCPCS: 36415; 70450; 80053; 85025; 85610; 87468; 87469; 87478; 87484; 87798; 93005; 99284

== ENCOUNTER → 2024-10-15 09:51 | Outpatient (BNV) | payer MEDICARE, MEDICAID, SELFPAY | PROVIDERS: Emergency Provider Emergency Medicine Emergency Medical Services; PCP Internal Medicine; Visit Provider Radiology Diagnostic Radiology | DX: R29.818 Other symptoms and signs involving the nervous system (principal) | CPT/HCPCS: 70450 ==

== ENCOUNTER → 2024-10-15 09:51 | Outpatient (BNV) | payer MEDICARE, MEDICAID, SELFPAY | PROVIDERS: Emergency Provider Emergency Medicine Emergency Medical Services; PCP Internal Medicine; Visit Provider Internal Medicine Cardiovascular Disease | DX: I44.7 Left bundle-branch block, unspecified (principal) | CPT/HCPCS: 93010 ==

== ENCOUNTER 2024-10-17 12:54 | Outpatient (AMB) | payer MEDICARE, MEDICAID, SELFPAY ==
[2024-10-17 12:57] VITALS: BP 128/66; PULSE 73; RESP 18; TEMP 36.6; O2SAT 97; BMI 22.6
--- NOTE | 2024-10-17 12:57 | MHC.PC.OV ---
Vital Signs 10/17/24 12:57 Height 5 ft 7 in Weight 144 lb BMI 22.6 BP 128/66 Blood Pressure Location Rt brachial Position Sitting Respiration 18 Pulse 73 Pulse Source Pulse Oximeter Temp 97.8 F Temp Source Oral Pulse Oximetry (%) 97 Oxygen Delivery Method Room Air Intake Visit Reasons: ER follow up Intake Note: Pt is here today for [place] [facility] [place] [facility] Allergies atropine [ATROPINE] Allergy (Unknown, Verified 10/17/24 12:58) SEIZURE Tobacco use date assessed: 10/17/24 Fall risk assessment: No Falls in past year Last assessed Fall Risk: 10/17/24 Dental Screening Dental Screen Date: 10/17/24 Did you have a dental visit in the last 12 months?: Yes Did you have a dental problem in the last 6 months where you did not have access to dental care?: No Was dental information given to patient?: Patient has dentist HPI ER follow up HPI Details Pt presents for f/u for ER for Rodriguez's palsy 2 days ago. The workup including CT of the brain blood work was negative and patient was started on prednisone and valacyclovir. He reports slightly improvement in the weakness of his right side of the face. Hypertension hyperlipidemia controlled on current medications, [facility] Medical History COVID-19 vaccine series completed HTN (hypertension) COPD (chronic obstructive pulmonary disease) Esophageal stricture Celiac disease Insomnia Hyperlipidemia Anxiety Coronary artery disease Stable angina Hypertension Surgical History History of coronary artery stent placement H/O colonoscopy History of esophagogastroduodenoscopy (EGD) Family History Father Colon cancer Mother Cancer Paternal Grandfather Cancer Social History Housing: House Are you a primary inpatient care manager rn to a significant other at home: No Do you presently have visiting nurse or other home services: No Patient Tobacco Use Status: Never used Tobacco e-Cigarette/Vaping Use: Never Used service: No Current occupational status: retired Cognitive needs: No Hearing needs: No Vision needs: Yes Questionnaire PHQ-9 Over the last 2 weeks, how often have you been bothered by any of the following problems? 92981 - PHQ-9 Billing: Patient declined-do not bill Source: Developed by Drs. Santino Rodriguez, Cielo Matute, Ike Breen and colleagues, with an educational jose from [email or web address]. Thrive Questionnaire Date Thrive assessed: 10/17/24 I am a: Patient What is your living situation today?: I choose not to answer this question Within the past 12 months, did the food you bought not last and you didn't have the money to get more?: I choose not to answer this question Within the past 12 months, did you worry whether your food would run out before you got money to buy more?: I choose not to answer this question Do you have trouble paying for medicines?: I choose not to answer this question Do you have trouble getting transportation to medical appointments?: I choose not to answer this question Do you have trouble paying your heating and electricity bill?: I choose not to answer this question Do you have trouble taking care of your child, family member or friend?: I choose not to answer this question Do you have trouble with day-to-day activities such as bathing, preparing meals, shopping, managing finances, etc.?: I choose not to answer this question Are you currently unemployed and looking for a job?: I choose not to answer this question Are you interested in more education?: I choose not to answer this question Currently or been in a relationship where the following occur: I choose not to answer THRIVE Score: 0 AUDIT C Alcohol Use Questionnaire (AUDIT-C) 1. How often do you have a drink containing alcohol?: Never 3. How often do you have six or more drinks on one occasion?: Never Total Score: 0 JM-7 AMB Questionnaire JM-7 Date JM - 7 assessed: 10/17/24 Feeling nervous, anxious, or on edge: 0 = Not at all Not being able to stop or control worryin = Not at all Worrying too much about different things: 0 = Not at all Trouble relaxin = Not at all Being so restless that it is hard to sit still: 0 = Not at all Becoming easily annoyed or irritable: 0 = Not at all Feeling afraid as if something awful might happen: 0 = Not at all Total JM-7 score (0-4 normal; 5-9 mild; 10-14 moderate; 15-21 severe): 0 Source: Developed by Drs. Santino Rodriguez, Cielo Matute, Ike Breen and colleagues, with an educational jose from [email or web address]. JM-7 Assessment Billing JM-7 Assessment Tool: JM-7 Assessment 46762 Review of Systems Const All systems reviewed & are unremarkable except as noted in HPI and below ENT Reports no additional complaints Card Reports no additional complaints Resp Reports no additional complaints GI Reports no additional complaints Reports no additional complaints Physical exam (Primary Care) Vital Signs: Last Vital Signs Temp 97.8 F 10/17/24 12:57 Pulse 73 10/17/24 12:57 Resp 18 10/17/24 12:57 BP 128/66 10/17/24 12:57 Pulse Ox 97 10/17/24 12:57 Oxygen Delivery Method Room Air 10/17/24 12:57 BMI result Body Mass Index 22.6 Tobacco/Smoking Status: Tobacco use Status Tobacco use date assessed 10/17/24 10/17/24 13:01 Patient Tobacco Use Status Never used Tobacco 10/17/24 12:58 e-Cigarette/Vaping Use Never Used 10/17/24 12:58 Thrive Assessment: Date of Thrive Assessment Date Thrive assessed 10/17/24 10/17/24 13:05 Currently or been in a relationship where the following occur: I choose not to answer Const General: no acute distress HENMT General nose exam: Normal external nose present Throat: Yes posterior oropharynx normal Resp Effort & Inspection: normal respiratory effort Auscultation: clear to auscultation bilaterally Cardio Rhythm: regular rhythm Heart sounds: S1 normal heart sound present and S2 normal heart sound present GI Inspection: Yes normal to inspection Neuro Other: Muscular weakness in the 7th nerve distribution on the right Coding Level of Care Code Est Pt Level 4 (41558) Diagnoses Cardiomyopathy I42.9 COPD (chronic obstructive pulmonary disease) J44.9 Stable angina I20.8 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 He is stable. 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
--- OUTSIDE RECORDS SUMMARY | 2024-10-17 15:55 | XMS_ITS | Patient Health Record ---
Author Organization [facility] Address [address] [place] [address] Care Team Providers Care Hardware Assembler Name Role Phone Marleni Karimi MD Primary Care Provider Santino Freitas [phone] Allergies No Known Allergies Reason For Referral No Information Medications Medication SIG (Take, Route, Fr equency, Duration) Notes Start Date End Date Status Aspirin 81 Active Omeprazole 20 MG 1 Orally Every morning for 90 days 05/09/2023 Active Crestor 20 MG 1 tablet Orally Once a day for 30 day(s) Active Delbert 5-20 MG 1 tablet Orally Once a day for 30 day(s) Active clonazePAM 1 MG Oral for 30 Ac tive Omeprazole 40 MG 1 capsule Orally Onc e a day for 30 day(s) Active Omeprazole 20 MG TAKE 1 CAPSULE BY [facility] EVERY DAY IN THE MORNING for 30 Active Symbicort Active Immunizations Vaccine Route Administration Date Status Comme nts Influenza Unknown 08/10/2021 Refused Social History Tobacco Use: Social History Observation Description Date Details (start date - stop date) Never Smoker NA - NA Tobacco Use/Smoking Question Answer Notes Patient is a nonsmoker Alcohol Screen Question Answer Notes Did you have a drink containing alcohol in the p ast year? No Points 0 Interpretation Negative Section Notes: Nonsmoker; no sig alcohol Came from [place] in 1989 Nonsmoker; no sig alcohol Came from [place] in 1989 Problems Problem Type SNOMED Code ICD Code Onset Dates Problem Status W/U Status Risk Notes Problem 389444521 Encounter for screening for malignant neoplasm of colon (Z12.11) Active confirmed Problem Acute gastric ulcer without hemorrhage, without perforation AND without obstruction (82150446) Acute gastric ulcer without hemorrhage or perforation (K25.3) Active confirmed Problem Duodenitis (69785726) Duodenitis (K29.80) Active confirmed Problem 031008945 Family history o f colon cancer (Z80.0) Active confirmed Problem Esophageal stricture (59259574) Esophageal stricture (K22.2) Active confirmed Problem Erosive esophagitis (59841466) Erosive esophagitis (K22.10) Active confirmed Problem Gastritis (6316301) Gastritis (K29.70) Active confirmed Problem Gastric ulcer (669128688) Gastric ulcer (K25.9) Active confirmed Problem Diverticulosis of colon (501184833) Diverticulosis of colon (K57.30) Active confirmed Problem 86998681 Esophageal dysphagia (R13.19) Active confirmed Plan Of Treatment Future Test Test Name Order Date UPPER GI ENDOSCOPY BALLOOON DILATION OF ESOPH 08/10/2021 COLONOSCOPY 08/10/2021 Insurance Providers Payer Name Payer Address Payer Phone Subscriber Number Group Number Insured Name Patient Relationship to Insured Coverage Start Date Coverage End Date BLUE CROSS BLUE [facility] [address] [place] [address] [phone] [id number] NEFTALI MIKER Self - patient is the insured [place] [address] [place] [address] [phone] [id number] HUMPHREY MIKE Self - patient is the insured Medical (General) History Medical History History ICD Code DE and a coronary artery stent placed in approx 2018-Dr. Yung COPD Neg. colonoscopy in 10/2016 Hyperlipidemia Hypertension Insomnia Denies DM,CVA,renal disease ? TIA EGD with Balloon dilation up to a 20mm B alloon in 10/[address] Pavon Negative screening colonoscopy in 2021 Upper endoscopy with dilatio n of a distal esophageal stricture with a 15 to 18mm balloon. There was evidence of some mild esophagitis, gastric ulcers, duodenitis, and gastritis. Biopsies were negative for H. pylori, malignancy, and Baker's esophagus. He was started on 40 mg of omeprazole daily at that time. Surgical History Surgery Date(Month/Year) Prostate surgery-not cancer
--- OUTSIDE RECORDS SUMMARY | 2024-10-17 15:55 | XMS_ITS ---
Author Organization [facility] Address [address] [place] [address] Care Team Providers Care Tomato Grader Name Role Phone Marleni Karimi MD Primary Care Provider Santino Freitas [phone] Medications Medication SIG (Take, Route, Fr equency, Duration) Notes Start Date End Date Status Omeprazole 20 MG 1 Orally Every morning for 90 days 05/09/2023 Active Encounters Encounter Location Date Provider Diagnosis [facility] [address] [place] [phone] 05/09/2023 Santino Parisi Plan Of Treatment Medication Medication Name Sig Start Date Stop Date Notes Omeprazole 20 MG 1 Orally Every morning for 90 days 2022 Progress Notes * RADHA MIKEOB:1950 (72 yo M)Acc No.[id number]:05/09/2023 Patient:?HUMPHREY MIKE :1950???Age:72 Y???Sex:Male Address:[address] [place] [address], [address] * Refills? Start Omeprazole Capsule Delayed Release, 20 MG, Orally, 90, 1, Every morning, 90 days, Refills=3 * true * Date:? Generated for Mell marshall/Vamshi/eTjacksonsmitting on:?10/17/2024 03:55 PM EDT
== END 2024-10-17 14:03 | disposition home or self-care (01) ==
LOC: HO.HMCC 12:54
PROVIDERS: PCP Internal Medicine; Visit Provider Internal Medicine
DX: I42.9 Cardiomyopathy, unspecified (principal); J44.9 Chronic obstructive pulmonary disease, unspecified; I20.89 Other forms of angina pectoris; G51.0 Bell's palsy

== ENCOUNTER → 2024-10-17 12:54 | Outpatient (BNVA) | payer MEDICARE, MEDICAID, SELFPAY | PROVIDERS: PCP Internal Medicine; Visit Provider Internal Medicine | DX: I42.9 Cardiomyopathy, unspecified (principal); J44.9 Chronic obstructive pulmonary disease, unspecified; G51.0 Bell's palsy; I20.89 Other forms of angina pectoris | CPT/HCPCS: 96127; 99212 ==

== ENCOUNTER 2024-10-23 14:26 | Outpatient (AMB) | payer MEDICARE, MEDICAID, SELFPAY ==
[2024-10-23 14:29] VITALS: BP 130/72; PULSE 84; BMI 21.9
--- NOTE | 2024-10-23 14:29 | MHC.OFFVIS ---
Vital Signs 10/23/24 14:29 Height 5 ft 7 in Weight 140 lb BMI 21.9 BP 130/72 Blood Pressure Location Lt brachial Position Sitting Pulse 84 Pulse Source Pulse Oximeter Intake Visit Reasons: r/s 09/11/24 6 mos followup Intake Note: r.s 6 mth f/up [employer] Required: No Accompanied by: Self / Same As Patient Allergies atropine [ATROPINE] Allergy (Unknown, Verified 10/17/24 12:58) SEIZURE Medication List - Last Reconciled 10/23/24 by Isaias Yung MD amlodipine-olmesartan 10-40 mg 1 tab PO DAILY aspirin (Adult Low Dose Aspirin) 81 mg PO DAILY Breo Ellipta 100-25 mcg/dose (fluticasone furoate-vilanterol) 1 inh inhalation DAILY NS budesonide-formoterol 160-4.5 mcg/actuation (Symbicort) 2 puffs inhalation BID clonazepam 1 mg PO BEDTIME loratadine 10 mg PO DAILY rosuvastatin 20 mg PO DAILY HPI Comments Details: 74 year gentleman is here for follow-up. He has background history of LAD PCI In the past. He had cardiac catheterization recently which did not show any significant disease and patent LAD stent was noticed. He has been doing well. He has been active and walking daily without any exertional chest discomfort shortness of breath. He is saying his insomnia is better to since he started walking and doing some exercise. Blood pressure control is good. 05/08/2023: He returns for follow-up. He is complaining of shortness of breath when he is playing ping-pong and pickle ball. He is saying this is a fairly new symptom for him. He is denying any chest discomfort. He has left bundle-branch block on the ECG. 08/07/2023: He returns for follow-up. Denying any chest discomfort shortness of breath. He is saying that breathing is better with inhalers. He has been using clonazepam for long time it was prescribed by a neurologist at [facility]. He is saying that his doctor from [facility] has left and he will be running out of clonazepam. He had echocardiogram performed which showed low normal ejection fraction. ECHO was performed because he has left bundle-branch block. Overall otherwise stable. 11/20/23: He returns for follow-up. He had echocardiography performed on 11/07/2023 showing low normal ejection fraction 51% by biplane method. Paradoxical septal motion due to left bundle-branch block. No significant change in ejection fraction compared to before. Denying any symptoms. 03/20/24: He is here for follow-up. EKGs showing left bundle-branch block as before. Blood pressure is 130/80. Clinically stable. No chest discomfort shortness of breath. No symptoms/signs of heart failure. 10/23/2024: He is here for follow-up. Blood pressure is well controlled. 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 He continues to have right-sided facial droop but saying that this is better than before. In the hospital he had EKGs done which showed left bundle-branch block with a QRS duration of 166 milliseconds. This is similar to his previous EKG in the office. Denying any chest discomfort shortness of breath. [facility] Medical History COVID-19 vaccine series completed HTN (hypertension) COPD (chronic obstructive pulmonary disease) Esophageal stricture Celiac disease Insomnia Hyperlipidemia Anxiety Coronary artery disease Stable angina Hypertension Surgical History History of coronary artery stent placement H/O colonoscopy History of esophagogastroduodenoscopy (EGD) Family History Father Colon cancer Mother Cancer Paternal Grandfather Cancer Social History Housing: House Are you a primary childcare center director to a significant other at home: No Do you presently have visiting nurse or other home services: No Patient Tobacco Use Status: Never used Tobacco e-Cigarette/Vaping Use: Never Used service: No Current occupational status: retired Cognitive needs: No Hearing needs: No Vision needs: Yes Review of Systems Const Denies chills, Denies fatigue, Denies fever(s), Denies frequent falls, Denies weakness, Denies weight gain and Denies weight loss ENT Denies dizziness Card Denies chest pain, Denies leg edema, Denies lightheadedness, Denies palpitations, Denies dyspnea and Denies dyspnea on exertion Resp Denies cough, Denies dyspnea and Denies dyspnea on exertion GI Denies hematochezia Musc Denies abnormal gait, Denies muscle weakness, Denies numbness, Denies radiating pain into limb and Denies tingling Neuro Denies abnormal gait, Denies dizziness, Denies frequent falls, Denies numbness, Denies tingling and Denies weakness Endo Denies fatigue and Denies palpitations Physical Exam Vital Signs: Last Vital Signs Pulse 84 10/23/24 14:29 BP 130/72 10/23/24 14:29 BMI result Body Mass Index 21.9 GENERAL APPEARANCE: in no acute distress, pleasant. NECK: no carotid bruit, no jugular venous distention. SKIN: no suspicious lesions, warm and dry. HEART: no murmurs, regular rate and rhythm. LUNGS: clear to auscultation bilaterally. ABDOMEN: soft, nontender. EXTREMITIES: no edema. PERIPHERAL PULSES: equal. NEUROLOGIC: Right-sided Rodriguez's palsy. Otherwise alert and oriented x3. Assessment & Plan Assessment & Plan (1) LBBB (left bundle branch block): Code(s): I44.7 - Left bundle-branch block, unspecified Category: Medical (2) Cardiomyopathy: Code(s): I42.9 - Cardiomyopathy, unspecified Category: Medical Plan [age] year gentleman who is here for follow-up. He has known history of coronary disease with previous LAD PCI in [place], [place]. He has left bundle-branch block. Previous echocardiography has shown EF 51% which was similar to his previous echocardiography from May 2023. Denying any exertional symptoms. Overall clinically stable. Unfortunately had Rodriguez's palsy and is quite distressed due to that. He completed steroids and anterior vitals and had some improvement but still continues to have right-sided facial droop and unable to close the right eye completely. He has been patching it at night. Hopefully recovers. He plans to see a neurologist at [facility]. Thank you for allowing me to participate in the care of your patient. Please feel free to contact me if you have any questions. Coding Level of Care Code Est Pt Level 4 (17997) Complex EM visit Add On G2211 Diagnoses LBBB (left bundle branch block) I44.7 Cardiomyopathy I42.9
--- OUTSIDE RECORDS SUMMARY | 2024-10-23 17:12 | XMS_ITS ---
Author Organization [facility] Address [address] [place] [phone] Care Team Providers Care Supervisor Commissary Production Name Role Phone Marleni Karimi MD Primary Care Provider Santino Freitas [phone] Medications Medication SIG (Take, Route, Fr equency, Duration) Notes Start Date End Date Status Omeprazole 20 MG 1 Orally Every morning for 90 days 05/09/2023 Active Encounters Encounter Location Date Provider Diagnosis [facility] [address] [place] [phone] 05/09/2023 Santino Parisi Plan Of Treatment Medication Medication Name Sig Start Date Stop Date Notes Omeprazole 20 MG 1 Orally Every morning for 90 days 2022 Progress Notes * RADHA MIKEOB:1950 (72 yo M)Acc No.[id number]:05/09/2023 Patient:?HUMPHREY MIKE :1950???Age:72 Y???Sex:Male Address:[address] [place] [address], [address] * Refills? Start Omeprazole Capsule Delayed Release, 20 MG, Orally, 90, 1, Every morning, 90 days, Refills=3 * true * Date:? Generated for Mell marshall/Vamshi/eTjacksonsmitting on:?10/23/2024 05:12 PM EDT
--- OUTSIDE RECORDS SUMMARY | 2024-10-23 17:12 | XMS_ITS | Patient Health Record ---
Author Organization [facility] Address [address] [place] [address] Care Team Providers Care Naval Aircrewman Tactical Helicopter Name Role Phone Marleni Karimi MD Primary Care Provider Santino Freitas [phone] Allergies No Known Allergies Reason For Referral [...] Omeprazole 20 MG TAKE 1 CAPSULE BY [facility] EVERY DAY IN THE MORNING for 30 [...] Problem Status W/U Status Risk Notes Problem 227589852 Encounter for screening for malignant neoplasm of colon (Z12.11) Active confirmed Problem Acute gastric ulcer without hemorrhage, without perforation AND without obstruction (92450794) Acute gastric ulcer without hemorrhage or perforation (K25.3) Active confirmed Problem Duodenitis (36633865) Duodenitis (K29.80) Active confirmed Problem 107697249 Family history o f colon cancer (Z80.0) Active confirmed Problem Esophageal stricture (63246556) Esophageal stricture (K22.2) Active confirmed Problem Erosive esophagitis (22091487) Erosive esophagitis (K22.10) Active confirmed Problem Gastritis (6407913) Gastritis (K29.70) Active confirmed Problem Gastric ulcer (761336903) Gastric ulcer (K25.9) Active confirmed Problem Diverticulosis of colon (435709152) Diverticulosis of colon (K57.30) Active confirmed Problem 58359873 Esophageal dysphagia (R13.19) Active confirmed Plan Of Treatment Future Test Test Name Order Date UPPER GI ENDOSCOPY BALLOOON DILATION OF ESOPH 08/10/2021 COLONOSCOPY 08/10/2021 Insurance Providers Payer Name Payer Address Payer Phone Subscriber Number Group Number Insured Name Patient Relationship to Insured Coverage Start Date Coverage End Date BLUE CROSS BLUE [facility] [address] [place] [address] [phone] [id number] NEFTALI MIKER Self - patient is the insured [place] [address] [place] [address] [phone] [id number] HUMPHREY MIKE Self - patient is the insured Medical (General) History Medical History History ICD Code TN and a coronary artery stent placed in approx 2018-Dr. Yugn COPD Neg. colonoscopy in 10/2016 Hyperlipidemia Hypertension [...]
== END 2024-10-23 14:44 | disposition home or self-care (01) ==
LOC: HO.HCS 14:26
PROVIDERS: PCP Internal Medicine; Visit Provider Internal Medicine Cardiovascular Disease
DX: I44.7 Left bundle-branch block, unspecified (principal); I42.9 Cardiomyopathy, unspecified
CPT/HCPCS: 99214; G2211

== ENCOUNTER → 2024-10-23 14:26 | Outpatient (BNVA) | payer MEDICARE, MEDICAID, SELFPAY | PROVIDERS: PCP Internal Medicine; Visit Provider Internal Medicine Cardiovascular Disease | DX: I44.7 Left bundle-branch block, unspecified (principal); I42.9 Cardiomyopathy, unspecified; R29.810 Facial weakness | CPT/HCPCS: 99212 ==

== ENCOUNTER 2024-12-04 08:41 | Outpatient (REF) | payer MEDICARE, MEDICAID, SELFPAY ==
--- OUTSIDE RECORDS SUMMARY | 2024-12-04 08:58 | XMS_ITS | Patient Health Record ---
Author Organization [facility] Address [address] [place] [address] Care Team Providers Care Linoleum Layer Helper Name Role Phone Marleni Karimi MD Primary Care Provider Santino Freitas [phone] Allergies No Known Allergies Reason For Referral [...] Omeprazole 20 MG TAKE 1 CAPSULE BY [facility] EVERY DAY IN THE MORNING for 30 [...] Problem Status W/U Status Risk Notes Problem 465699359 Encounter for screening for malignant neoplasm of colon (Z12.11) Active confirmed Problem Acute gastric ulcer without hemorrhage, without perforation AND without obstruction (34737868) Acute gastric ulcer without hemorrhage or perforation (K25.3) Active confirmed Problem Duodenitis (78272320) Duodenitis (K29.80) Active confirmed Problem 358014545 Family history o f colon cancer (Z80.0) Active confirmed Problem Esophageal stricture (57709420) Esophageal stricture (K22.2) Active confirmed Problem Erosive esophagitis (64966153) Erosive esophagitis (K22.10) Active confirmed Problem Gastritis (6519253) Gastritis (K29.70) Active confirmed Problem Gastric ulcer (735307950) Gastric ulcer (K25.9) Active confirmed Problem Diverticulosis of colon (796814341) Diverticulosis of colon (K57.30) Active confirmed Problem 70353514 Esophageal dysphagia (R13.19) Active confirmed Plan Of Treatment Future Test Test Name Order Date UPPER GI ENDOSCOPY BALLOOON DILATION OF ESOPH 08/10/2021 COLONOSCOPY 08/10/2021 Insurance Providers Payer Name Payer Address Payer Phone Subscriber Number Group Number Insured Name Patient Relationship to Insured Coverage Start Date Coverage End Date BLUE CROSS BLUE [facility] [address] [place] [address] [phone] [id number] HUMPHREY MIKE Self - patient is the insured [place] [address] [place] [address] [phone] [id number] HUMPHREY MIKE Self - patient is the insured Medical (General) History Medical History History ICD Code GA and a coronary artery stent placed in [...]
[2024-12-04 09:52] LABS: MANUAL DIFF FLAG NO
[2024-12-04 10:04] LABS: Basophils Percent Auto 0.2 % (0-2); Eosinophils Absolute Auto 0.2 X10*3/uL (0.0-0.4); Eosinophils Percent Auto 3.6 % (0-4); Hemoglobin 14.4 g/dl (14.0-18.0); Imm Gran Abs Auto 0.01 X10*3/uL (0.00-0.03); Imm Gran Pct Auto 0.2 % (0.0-0.4); Lymphocytes Absolute Auto 1.6 X10*3/uL (1.2-4.9); Lymphocytes Percent Auto 34.6 % (20-40); Mean Corpuscular HGB Conc 35.1 g/dl (31.0-36.0); Mean Corpuscular Hemoglobin 31.6 pg (27.0-33.0); Mean Corpuscular Volume 90.1 fL (80.0-98.0); Mean Platelet Volume 9.8 fL (9.4-12.4); Monocytes Absolute Auto 0.5 X10*3/uL (0.1-1.2); Monocytes Percent Auto 10.7 % (2-11); Neutrophils Absolute Auto 2.3 x10*3/uL (2.0-8.3); Neutrophils Percent Auto 50.7 % (45-73); Platelet Count 164 X10*3/uL (160-400); Red Blood Count 4.55 X10*6/uL (4.60-5.80); Red Cell Distribution Width 12.8 % (11.0-16.0); White Blood Count 4.5 X10*3/uL (4.8-10.8)
[2024-12-04 10:49] LABS: Alanine Aminotransferase 34 U/L (0-40); Albumin Level 4.1 g/dL (3.5-5.0); Alkaline Phosphatase 45 U/L (39-117); Anion Gap 13 (12-20); Aspartate Amino Transferase 36 U/L (5-37); Bilirubin Total 1.1 mg/dL (0.0-1.0); Blood Urea Nitrogen 13 mg/dL (9-16); Calcium 8.9 mg/dL (8.4-10.2); Carbon Dioxide 23 mmol/L (22-29); Chloride 110 mmol/L (96-108); Cholesterol 173 mg/dL (<200); Estimated Glomerular Filt Rate > 60; Glucose Fasting 93 mg/dL (60-99); HDL Cholesterol 60 mg/dL (>40); LDL Cholesterol Calculated 103 mg/dL (<100); Sodium 142 mmol/L (135-145); Total Protein 7.1 g/dL (6.5-8.0); Triglycerides 54 mg/dL (<150)
== END 2024-12-04 08:42 | disposition home or self-care (01) ==
LOC: HO.HMGCLDS 08:41
PROVIDERS: PCP Internal Medicine; Visit Provider Internal Medicine
DX: Z00.00 Encounter for general adult medical examination without abnormal findings (principal); I10 Essential (primary) hypertension; E78.5 Hyperlipidemia, unspecified; F41.9 Anxiety disorder, unspecified; N40.0 Benign prostatic hyperplasia without lower urinary tract symptoms
CPT/HCPCS: 36415; 80053; 80061; 85025

== ENCOUNTER 2024-12-19 11:50 | Outpatient (AMB) | payer MEDICARE, MEDICAID, SELFPAY ==
--- NOTE | 2024-12-19 12:03 | A.OFFPC_ITS ---
Vital Signs 12/19/24 12:04 Height 5 ft 7 in Weight 144 lb BMI 22.6 BP 130/74 Blood Pressure Location Rt brachial Position Sitting Respiration 18 Pulse 63 Pulse Source Pulse Oximeter Pulse Oximetry (%) 96 Oxygen Delivery Method Room Air Intake Visit Reasons: Annual PE Intake Note: Pt is here today for PE. Allergies atropine [ATROPINE] Allergy (Unknown, Verified 10/17/24 12:58) SEIZURE Medication List - Last Reconciled 12/19/24 by Marleni Karimi MD amlodipine-olmesartan 10-40 mg 1 tab PO DAILY aspirin (Adult Low Dose Aspirin) 81 mg PO DAILY Breo Ellipta 100-25 mcg/dose (fluticasone furoate-vilanterol) 1 inh inhalation DAILY NS budesonide-formoterol 160-4.5 mcg/actuation (Symbicort) 2 puffs inhalation BID clonazepam 1 mg PO BEDTIME loratadine 10 mg PO DAILY rosuvastatin 20 mg PO DAILY Tobacco use date assessed: 12/19/24 Fall risk assessment: No Falls in past year Last assessed Fall Risk: 12/19/24 Dental Screening Dental Screen Date: 10/17/24 HPI Annual PE HPI Details Pt presents for PE. Patient complains of discomfort and bulging in the right groin on and off when lifting heavy. He denies abdominal pelvic pain nausea vomiting. [facility] Medical History (Updated 12/19/24 @ 16:28 by Marleni Karimi MD) COVID-19 vaccine series completed HTN (hypertension) COPD (chronic obstructive pulmonary disease) Esophageal stricture Insomnia Hyperlipidemia Anxiety Coronary artery disease Stable angina Hypertension Surgical History (Updated 12/19/24 @ 16:28 by Marleni Karimi MD) History of coronary artery stent placement H/O colonoscopy History of esophagogastroduodenoscopy (EGD) Family History Father Colon cancer Mother Cancer Paternal Grandfather Cancer Social History Housing: House Are you a primary family member caretaker to a significant other at home: No Do you presently have visiting nurse or other home services: No Patient Tobacco Use Status: Never used Tobacco e-Cigarette/Vaping Use: Never Used service: No Current occupational status: retired Cognitive needs: No Hearing needs: No Vision needs: Yes Questionnaire PHQ-9 Over the last 2 weeks, how often have you been bothered by any of the following problems? 1. Little interest or pleasure in doing things: not at all 2. Feeling down, depressed, or hopeless: not at all 3. Trouble falling or staying asleep, or sleeping too much: not at all 4. Feeling tired or having little energy: not at all 5. Poor appetite or overeating: not at all 6. Feeling bad about yourself - or that you are a failure or have let yourself or your family down: not at all 7. Trouble concentrating on things, such as reading the newspaper or watching television: not at all 8. Moving or speaking so slowly that other people could have noticed. Or the opposite - being so fidgety or restless that you have been moving around a lot more than usual: not at all 9. Thoughts that you would be better off or of hurting yourself in some way: not at all Total score: 0 Depression Screening Interpretation: Negative Depression Screening Done: Yes 43007 - PHQ-9 Billing: Yes Source: Developed by Drs. Santino Rodriguez, Cielo Matute, Ike Breen and colleagues, with an educational jose from [employer]. Thrive Questionnaire Date Thrive assessed: 12/19/24 I am a: Patient What is your living situation today?: I have a steady place to live Within the past 12 months, did the food you bought not last and you didn't have the money to get more?: I choose not to answer this question Within the past 12 months, did you worry whether your food would run out before you got money to buy more?: I choose not to answer this question Do you have trouble paying for medicines?: I choose not to answer this question Do you have trouble getting transportation to medical appointments?: I choose not to answer this question Do you have trouble paying your heating and electricity bill?: I choose not to answer this question Do you have trouble taking care of your child, family member or friend?: No Do you have trouble with day-to-day activities such as bathing, preparing meals, shopping, managing finances, etc.?: No Are you currently unemployed and looking for a job?: No Are you interested in more education?: No Please select the resources that you would like help with: None Currently or been in a relationship where the following occur: I choose not to answer THRIVE Score: 0 AUDIT C Alcohol Use Questionnaire (AUDIT-C) 1. How often do you have a drink containing alcohol?: Never 3. How often do you have six or more drinks on one occasion?: Never Total Score: 0 JM-7 AMB Questionnaire JM-7 Date JM - 7 assessed: 12/19/24 Feeling nervous, anxious, or on edge: 0 = Not at all Not being able to stop or control worryin = Not at all Worrying too much about different things: 0 = Not at all Trouble relaxin = Not at all Being so restless that it is hard to sit still: 0 = Not at all Becoming easily annoyed or irritable: 0 = Not at all Feeling afraid as if something awful might happen: 0 = Not at all Total JM-7 score (0-4 normal; 5-9 mild; 10-14 moderate; 15-21 severe): 0 Source: Developed by Drs. Santino Rodriguez, Cielo Matute, Ike Breen and colleagues, with an educational jose from [employer]. JM-7 Assessment Billing JM-7 Assessment Tool: JM-7 Assessment 27725 Review of Systems Const All systems reviewed & are unremarkable except as noted in HPI and below Reports no additional complaints Eyes Reports no additional complaints ENT Reports no additional complaints Card Reports no additional complaints Resp Reports no additional complaints GI Reports no additional complaints Reports no additional complaints Physical exam (Primary Care) Vital Signs: Last Vital Signs Pulse 63 12/19/24 12:04 Resp 18 12/19/24 12:04 BP 130/74 12/19/24 12:04 Pulse Ox 96 12/19/24 12:04 Oxygen Delivery Method Room Air 12/19/24 12:04 BMI result Body Mass Index 22.6 Tobacco/Smoking Status: Tobacco use Status Tobacco use date assessed 12/19/24 12/19/24 12:18 Patient Tobacco Use Status Never used Tobacco 12/19/24 12:04 e-Cigarette/Vaping Use Never Used 12/19/24 12:04 PHQ-9: PHQ-9 Score PHQ-9: Total score 0 12/19/24 12:55 Depression Screening Interpretation: Negative Thrive Assessment: Date of Thrive Assessment Date Thrive assessed 12/19/24 12/19/24 12:18 Currently or been in a relationship where the following occur: I choose not to answer Const General: no acute distress HENMT Head: Yes normal to inspection Ears: hearing grossly normal bilaterally Face and sinus: Yes normal facial exam Throat: Yes posterior oropharynx normal Eyes General: appearance normal, both eyes and all related structures Neck Neck: Yes no lymphadenopathy and Yes supple Resp Effort & Inspection: normal respiratory effort Auscultation: clear to auscultation bilaterally Cardio Rhythm: regular rhythm Heart sounds: S1 normal heart sound present and S2 normal heart sound present GI Other: Right inguinal area bulging with coughing and slight tenderness, Inspection: Yes normal to inspection Palpation (GI): Soft to palpation Percussion: Yes normal to percussion Auscultation: normal bowel sounds Immunizations pneumoc 20-pierre conj-dip cr(PF) 0.5 mL IM syringe Performing Provider: Marleni Karimi MD [place] [facility] Administered by: RAGHU Cantor on 12/19/24 12:55 Dose Route Admin Location Dispensed Lot Number Expiration Date NDC [employer] 0.5 mL IM Left Deltoid 0.5 mL [id number] 10/21/25 4215-3695-08 [employer] VIS Given Date VIS Provided VIS Publication Date 12/19/24 Single Vaccine 21 Eligibility Eligibility Date Funding Source Not [facility] Eligible 12/19/24 Private Coding Level of Care Code Est Pt Prev Care >65y(43236) Diagnoses Hyperlipidemia E78.5 Hypertension I10 Annual physical exam Z00.00 COPD (chronic obstructive pulmonary disease) J44.9 Esophageal stricture K22.2 Coronary artery disease I25.10 Inguinal hernia K40.90 Additional Codes JM-7 Assessment Billing - JM-7 Assessment Tool: JM-7 Assessment 31257 ([id number]) PHQ-9 - 30499 - PHQ-9 Billing: Yes ([id number]) Assessment & Plan Assessment & Plan (1) Hyperlipidemia: Code(s): E78.5 - Hyperlipidemia, unspecified Category: Medical Plan: Patient could not tolerate higher than 20 mg dose of rosuvastatin. Zetia will be added and lipid profile checked in 2 months (2) Hypertension: Comment: Stable Code(s): I10 - Essential (primary) hypertension Category: Medical Plan: Continue current medications, medication compliance discussed with the patient (3) Annual physical exam: Code(s): Z00.00 - Encounter for general adult medical examination without abnormal findings Category: Medical Plan: Well-balanced diet regular physical activity discussed with the patient she is established with GI for colonoscopy (4) COPD (chronic obstructive pulmonary disease): Comment: Controlled on Symbicort Code(s): J44.9 - Chronic obstructive pulmonary disease, unspecified Category: Medical Plan: Continue Symbicort (5) Esophageal stricture: Comment: s/p EGD and dilation 09/14 gastric and duodenal ulcers, negative bx, Code(s): K22.2 - Esophageal obstruction Category: Medical Plan: Follow-up with GI (6) Coronary artery disease: Comment: s/p PCI to LAD 2019, f/u with Code(s): I25.10 - Atherosclerotic heart disease of [place] coronary artery without angina pectoris Category: Medical Plan: Continue aspirin high dose of statin, follow-up with the Cardiology (7) Inguinal hernia: Comment: right Code(s): K40.90 - Unilateral inguinal hernia, without obstruction or gangrene, not specified as recurrent Category: Medical Plan: Obtain pelvic ultrasound to evaluate for right inguinal hernia Orders: Orders Complete Blood Count Auto Diff 1 Year E78.5 - Hyperlipidemia, unspecified, I10 - Essential (primary) hypertension UA w Microscopic 1 Year E78.5 - Hyperlipidemia, unspecified, I10 - Essential (primary) hypertension US pelvic limited Today K40.90 - Unilateral inguinal hernia, without obstruction or gangrene, not specified as recurrent Lipid Panel 2 Months E78.5 - Hyperlipidemia, unspecified Comprehensive [place]. Panel Fast 1 Year E78.5 - Hyperlipidemia, unspecified, I10 - Essential (primary) hypertension Lipid Panel 1 Year E78.5 - Hyperlipidemia, unspecified, I10 - Essential (primary) hypertension PSA,Total (Free>4and<10) 1 Year E78.5 - Hyperlipidemia, unspecified, I10 - Essential (primary) hypertension Pneumococcal 20 Immunization Today Z23 - Encounter for immunization Medications: New ezetimibe (Zetia) 10 mg PO DAILY 90 tabs 3RF Refilled amlodipine-olmesartan 10-40 mg 1 tab PO DAILY 90 tabs 3RF rosuvastatin 20 mg PO DAILY 90 tabs 3RF Discontinued Breo Ellipta 100-25 mcg/dose (fluticasone furoate-vilanterol) Discontinued Reason: Doctor's Order 1 inh inhalation DAILY 60 ea 5RF NS
--- OUTSIDE RECORDS SUMMARY | 2024-12-19 12:03 | XMS_ITS | Patient Health Record ---
Author Organization [facility] Address [address] [place] [id number] Care Team Providers Care Transportation Dispatch Manager Name Role Phone Marleni Karimi MD Primary Care Provider Santino Freitas [phone] Allergies No Known Allergies Reason For Referral [...] Omeprazole 20 MG TAKE 1 CAPSULE BY [facility] EVERY DAY IN THE MORNING for 30 [...] Problem Status W/U Status Risk Notes Problem 622963172 Encounter for screening for malignant neoplasm of colon (Z12.11) Active confirmed Problem Acute gastric ulcer without hemorrhage, without perforation AND without obstruction (93668374) Acute gastric ulcer without hemorrhage or perforation (K25.3) Active confirmed Problem Duodenitis (44825451) Duodenitis (K29.80) Active confirmed Problem 107674641 Family history o f colon cancer (Z80.0) Active confirmed Problem Esophageal stricture (02517832) Esophageal stricture (K22.2) Active confirmed Problem Erosive esophagitis (23296393) Erosive esophagitis (K22.10) Active confirmed Problem Gastritis (9257061) Gastritis (K29.70) Active confirmed Problem Gastric ulcer (990641700) Gastric ulcer (K25.9) Active confirmed Problem Diverticulosis of colon (134053676) Diverticulosis of colon (K57.30) Active confirmed Problem 14041865 Esophageal dysphagia (R13.19) Active confirmed Plan Of Treatment Future Test Test Name Order Date UPPER GI ENDOSCOPY BALLOOON DILATION OF ESOPH 08/10/2021 COLONOSCOPY 08/10/2021 Insurance Providers Payer Name Payer Address Payer Phone Subscriber Number Group Number Insured Name Patient Relationship to Insured Coverage Start Date Coverage End Date BLUE CROSS BLUE [facility] [address] [place] [address] [phone] [id number] HUMPHREY MIKE Self - patient is the insured [place] [address] [place] [address] [phone] [id number] HUMPHREY MIKE Self - patient is the insured Medical (General) History Medical History History ICD Code HI and a coronary artery stent placed in [...]
[2024-12-19 12:04] VITALS: BP 130/74; PULSE 63; RESP 18; O2SAT 96; BMI 22.6
== END 2024-12-19 14:11 | disposition home or self-care (01) ==
LOC: HO.HMCC 11:50
PROVIDERS: PCP Internal Medicine; Visit Provider Internal Medicine
DX: E78.5 Hyperlipidemia, unspecified (principal); I10 Essential (primary) hypertension; Z00.00 Encounter for general adult medical examination without abnormal findings; J44.9 Chronic obstructive pulmonary disease, unspecified; K22.2 Esophageal obstruction; I25.10 Atherosclerotic heart disease of native coronary artery without angina pectoris; K40.90 Unilateral inguinal hernia, without obstruction or gangrene, not specified as recurrent; Z23 Encounter for immunization

== ENCOUNTER → 2024-12-19 11:50 | Outpatient (BNVA) | payer MEDICARE, MEDICAID, SELFPAY | PROVIDERS: PCP Internal Medicine; Visit Provider Internal Medicine | DX: Z00.00 Encounter for general adult medical examination without abnormal findings (principal); Z23 Encounter for immunization; E78.5 Hyperlipidemia, unspecified; I10 Essential (primary) hypertension; J44.9 Chronic obstructive pulmonary disease, unspecified; K22.2 Esophageal obstruction; I25.10 Atherosclerotic heart disease of native coronary artery without angina pectoris; K40.90 Unilateral inguinal hernia, without obstruction or gangrene, not specified as recurrent; Z79.82 Long term (current) use of aspirin; Z79.899 Other long term (current) drug therapy | CPT/HCPCS: 90471; 90677; 96127; 99397 ==

== ENCOUNTER 2025-01-21 13:36 | Outpatient (REF) | payer MEDICARE, MEDICAID, SELFPAY ==
--- NOTE | ~2025-01-21 | US_ITS ---
EXAMINATION: US right groin, LIMITED/FOLLOW UP CLINICAL INFORMATION: Right inguinal hernia, intermittent bulging the right groin with heavy lifting COMPARISON: CT March 27, 2017 TECHNIQUE: Grayscale and color Doppler imaging was performed in the right inguinal FINDINGS: Hypoechoic tubular shaped mass in the right inguinal region measures 1.5 x 3.1 x 4.6 cm, similar to the prior CT. On CT, herniation coarse medial to the inferior epigastric vessels. US/US pelvic limited IMPRESSION: Direct inguinal hernia on the right containing adipose tissue. It appears similar to the CT on 03/27/2017 Electronically signed by: Wai Barber MD 01/21/2025 02:12 PM EDT
--- OUTSIDE RECORDS SUMMARY | 2025-01-21 14:45 | XMS_ITS | Patient Health Record ---
Author Organization [facility] Address [address] [place] [id number] Care Team Providers Care Religious Ritual Slaughterer Name Role Phone Marleni Karimi MD Primary Care Provider Santino Freitas [phone] Allergies No Known Allergies Reason For Referral [...] Omeprazole 20 MG TAKE 1 CAPSULE BY [facility] EVERY DAY IN THE MORNING for 30 [...] Problem Status W/U Status Risk Notes Problem 924266293 Encounter for screening for malignant neoplasm of colon (Z12.11) Active confirmed Problem Acute gastric ulcer without hemorrhage, without perforation AND without obstruction (24619329) Acute gastric ulcer without hemorrhage or perforation (K25.3) Active confirmed Problem Duodenitis (06084446) Duodenitis (K29.80) Active confirmed Problem 704655880 Family history o f colon cancer (Z80.0) Active confirmed Problem Esophageal stricture (02343764) Esophageal stricture (K22.2) Active confirmed Problem Erosive esophagitis (55783770) Erosive esophagitis (K22.10) Active confirmed Problem Gastritis (1587913) Gastritis (K29.70) Active confirmed Problem Gastric ulcer (291677317) Gastric ulcer (K25.9) Active confirmed Problem Diverticulosis of colon (040742679) Diverticulosis of colon (K57.30) Active confirmed Problem 93944679 Esophageal dysphagia (R13.19) Active confirmed Plan Of Treatment Future Test Test Name Order Date UPPER GI ENDOSCOPY BALLOOON DILATION OF ESOPH 08/10/2021 COLONOSCOPY 08/10/2021 Insurance Providers Payer Name Payer Address Payer Phone Subscriber Number Group Number Insured Name Patient Relationship to Insured Coverage Start Date Coverage End Date BLUE CROSS BLUE [facility] [address] [place] [address] [phone] [id number] HUMPHREY MIKE Self - patient is the insured [place] [address] [place] [address] [phone] [id number] HUMPHREY MIKE Self - patient is the insured Medical (General) History Medical History History ICD Code AR and a coronary artery stent placed in [...]
== END 2025-01-21 13:37 | disposition home or self-care (01) ==
LOC: HO.HMGCX 13:36
PROVIDERS: PCP Internal Medicine; Visit Provider Internal Medicine
DX: K40.90 Unilateral inguinal hernia, without obstruction or gangrene, not specified as recurrent (principal)
CPT/HCPCS: 76857

== ENCOUNTER → 2025-01-21 13:38 | Outpatient (BNV) | payer MEDICARE, MEDICAID, SELFPAY | PROVIDERS: PCP Internal Medicine; Visit Provider Radiology Diagnostic Radiology | DX: K40.90 Unilateral inguinal hernia, without obstruction or gangrene, not specified as recurrent (principal) | CPT/HCPCS: 76857 ==

== ENCOUNTER 2025-05-14 09:55 | Outpatient (AMB) | payer MEDICARE, MEDICAID, SELFPAY ==
[2025-05-14 10:15] VITALS: BP 122/60; PULSE 59; BMI 23.1
--- NOTE | 2025-05-14 10:15 | A.OFFVIS_ITS ---
Vital Signs 05/14/25 10:15 Height 5 ft 7 in Weight 147 lb 4.301 oz BMI 23.1 BP 122/60 Blood Pressure Location Lt brachial Position Sitting Pulse 59 Pulse Source Monitor Intake Visit Reasons: 6m follow up Intake Note: 6 mth f/up Registered Respiratory Technician Required: No Accompanied by: Self / Same As Patient Allergies atropine (ATROPINE) Allergy (Unknown, Verified 10/17/24 12:58) SEIZURE Medication List - Last Reconciled 05/14/25 by Isaias Yung MD amlodipine-olmesartan 10-40 mg 1 tab PO DAILY aspirin (Adult Low Dose Aspirin) 81 mg PO DAILY Breo Ellipta 100-25 mcg/dose (fluticasone furoate-vilanterol) 1 inh inhalation DAILY NS budesonide-formoterol 160-4.5 mcg/actuation (Symbicort) 2 puffs inhalation BID clonazepam 1 mg PO BEDTIME ezetimibe (Zetia) 10 mg PO DAILY loratadine 10 mg PO DAILY rosuvastatin 20 mg PO DAILY HPI Comments Details: 74 year gentleman is here for follow-up. He has background history of LAD PCI In the past. He had cardiac catheterization recently which did not show any significant disease and patent LAD stent was noticed. He has been doing well. He has been active and walking daily without any exertional chest discomfort shortness of breath. He is saying his insomnia is better to since he started walking and doing some exercise. Blood pressure control is good. 05/08/2023: He returns for follow-up. He is complaining of shortness of breath when he is playing ping-pong and pickle ball. He is saying this is a fairly new symptom for him. He is denying any chest discomfort. He has left bundle-branch block on the ECG. 08/07/2023: He returns for follow-up. Denying any chest discomfort shortness of breath. He is saying that breathing is better with inhalers. He has been using clonazepam for long time it was prescribed by a neurologist at [facility]. He is saying that his doctor from [facility] has left and he will be running out of clonazepam. He had echocardiogram performed which showed low normal ejection fraction. ECHO was performed because he has left bundle-br anch block. Overall otherwise stable. 11/20/23: He returns for follow-up. He had echocardiography performed on 11/07/2023 showing low normal ejection fraction 51% by biplane method. Paradoxical septal motion due to left bundle-branch block. No significant change in ejection fraction compared to before. Denying any symptoms. 03/20/24: He is here for follow-up. EKGs showing left bundle-branch block as before. Blood pressure is 130/80. Clinically stable. No chest discomfort shortness of breath. No symptoms/signs of heart failure. 10/23/2024: He is here for follow-up. Blood pressure is well controlled. 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 He continues to have right-sided facial droop but saying that this is better than before. In the hospital he had EKGs done which showed left bundle-branch block with a QRS duration of 166 milliseconds. This is similar to his previous EKG in the office. Denying any chest discomfort shortness of breath. 05/14/2025: He is here for follow-up. He has left bundle-branch block on EKG as before. Denying any new symptoms. [facility] Medical History COVID-19 vaccine series completed HTN (hypertension) COPD (chronic obstructive pulmonary disease) Esophageal stricture Insomnia Hyperlipidemia Anxiety Coronary artery disease Stable angina Hypertension Surgical History History of coronary artery stent placement H/O colonoscopy History of esophagogastroduodenoscopy (EGD) Family History Father Colon cancer Mother Cancer Paternal Grandfather Cancer Social History Housing: House Are you a primary child care attendant to a significant other at home: No Do you presently have visiting nurse or other home services: No Patient Tobacco Use Status: Never used Tobacco e-Cigarette/Vaping Use: Never Used service: No Current occupational status: retired Cognitive needs: No Hearing needs: No Vision needs: Yes Physical Exam Vital Signs: Last Vital Signs Pulse 59 05/14/25 10:15 BP 122/60 10/22/25 10:15 BMI result Body Mass Index 23.1 GENERAL APPEARANCE: in no acute distress, pleasant. NECK: no carotid bruit, no jugular venous distention. SKIN: no suspicious lesions, warm and dry. HEART: no murmurs, regular rate and rhythm. LUNGS: clear to auscultation bilaterally. ABDOMEN: soft, nontender. EXTREMITIES: no edema. PERIPHERAL PULSES: equal. NEUROLOGIC: Alert and oriented x3. Right-sided Rodriguez's palsy has resolved. Office Procedures EKG Details: Sinus bradycardia 59 beats per minute, normal axis, left bundle-branch block, QTC 467 milliseconds. QRS 166 milliseconds. [id number], Complete Assessment & Plan Assessment & Plan (1) LBBB (left bundle branch block): Code(s): I44.7 - Left bundle-branch block, unspecified Category: Medical (2) Cardiomyopathy: Code(s): I42.9 - Cardiomyopathy, unspecified Category: Medical Plan [age] year gentleman who is here for follow-up. He has known history of coronary disease with previous LAD PCI in [place]. He has left bundle-branch block. Previous echocardiography has shown EF 51% which was similar to his previous echocardiography from May 2023. Denying any exertional symptoms. Overall clinically stable. Denying any heart failure or anginal symptoms currently. He will see us back in 6 months. Symptoms/signs of heart failure discussed in detail with the patient. Thank you for allowing me to participate in the care of your patient. Please feel free to contact me if you have any questions. Coding Level of Care Code Est Pt Level 4 (17955) Diagnoses LBBB (left bundle branch block) I44.7 Cardiomyopathy I42.9 CPT Codes EKG - CPT: 34022-[id number], Complete ([id number])
== END 2025-05-14 10:31 | disposition home or self-care (01) ==
LOC: HO.HCS 09:56
PROVIDERS: PCP Internal Medicine; Visit Provider Internal Medicine Cardiovascular Disease
DX: I44.7 Left bundle-branch block, unspecified (principal); I42.9 Cardiomyopathy, unspecified
CPT/HCPCS: 93010; 99214

== ENCOUNTER → 2025-05-14 09:55 | Outpatient (BNVA) | payer MEDICARE, MEDICAID, SELFPAY | PROVIDERS: PCP Internal Medicine; Visit Provider Internal Medicine Cardiovascular Disease | DX: I25.10 Atherosclerotic heart disease of native coronary artery without angina pectoris (principal); I44.7 Left bundle-branch block, unspecified; I42.9 Cardiomyopathy, unspecified | CPT/HCPCS: 93005; 99212 ==

== ENCOUNTER 2025-05-24 11:48 | Emergency (ER) | payer MEDICARE, MEDICAID, SELFPAY ==
--- NOTE | 2025-05-24 11:53 | ED_ITS ---
HPI - Extremity Injury (Upper) General Chief Complaint: Extremity Injury, Upper Stated Complaint: elbow pain Time Seen by Provider: 05/24/25 12:22 History of Present Illness HPI narrative: 75 year old male with PMH of HLD, anxiety, COPD, CAD, HTN, LBBB, BPH presenting with right elbow pain, swelling and redness that is been ongoing for the last 24 hours or so. No reported injury. States he was dealing with the COVID-19 infection last week but tested negative today. Describes low-grade fevers as high as 100?. Redness is starting to spread slightly around the elbow. No history of gout or other arthritis. Denies nausea or vomiting. Related Data Home Medications ?Medication ?Instructions ?Recorded ?Confirmed aspirin 81 mg tablet,delayed 81 mg PO DAILY 05/07/20 1 release (Adult Low Dose Aspirin) clonazepam 1 mg tablet 1 mg PO BEDTIME 08/19/21 Previous Rx's ?Medication ?Instructions ?Recorded loratadine 10 mg tablet 10 mg PO DAILY #90 tabs 03/25 amlodipine 10 mg-olmesartan 40 mg 1 tab PO DAILY #90 t abs 12/19/24 tablet ezetimibe 10 mg tablet (Zetia) 10 mg PO DAILY #90 tabs 12/19/24 rosuvastatin 20 mg tablet 20 mg PO DAILY #90 tabs 11/22 04/17 Breo Ellipta 100 mcg-25 mcg/dose 1 inh inhalation MAEVE Y #60 ea 01/02/25 powder for inhalation (fluticasone furoate-vilanterol) budesonide-formoterol HFA 160 2 puff inhalation BID #1 0.2 grams 01/02/25 mcg-4.5 mcg/actuation aerosol inhaler (Symbicort) cephalexin 500 mg capsule 500 mg PO BID 7 days #14 cap s 05/24/25 doxycycline monohydrate 100 mg 100 mg PO BID 7 days #1 4 caps 05/24/25 capsule Allergies Allergy/AdvReac Type Severity Reaction Status Date / Time atropine (ATROPINE) Allergy Unknown SEIZURE Verified 05/24/25 11:56 Review of Systems 2 Review of Systems: As per HPI, full review of systems performed and negative but for the above mentioned pertinent positives and negatives. [facility] Past Medical History Medical History COVID-19 vaccine series completed HTN (hypertension) COPD (chronic obstructive pulmonary disease) Esophageal stricture Insomnia Hyperlipidemia Anxiety Coronary artery disease Stable angina Hypertension Surgical History History of coronary artery stent placement H/O colonoscopy History of esophagogastroduodenoscopy (EGD) Family History Family History Father Colon cancer Mother Cancer Paternal Grandfather Cancer Social History Social History Housing: House Are you a primary patient care technician to a significant other at home: No Do you presently have visiting nurse or other home services: No Patient Tobacco Use Status: Never used Tobacco e-Cigarette/Vaping Use: Never Used Advance Directives: No Advance Directives Information Provided: Yes Do you have a plan to hurt others: No Plan service: No Current occupational status: retired Cognitive needs: No Hearing needs: No Vision needs: Yes Physical Exam 2 Exam: Exam: GENERAL: Ill-Appearing, appears uncomfortable. SKIN: Normal skin color for ethnicity, warm, dry, no rashes noted. HEENT: Normocephalic, atraumatic, no stridor, dry mucous membranes, dentition intact, EOMI, PERRLA. NECK: Soft, supple, full ROM, midline structures nontender, no step-offs, no deformities, no lymphadenopathy. CHEST: Heart regular rhythm, no murmurs, symmetric chest rise and fall. PULMONARY: Clear to auscultation bilaterally, diminished at the bases, no labored breathing, no wheezes/rhales/rhonchi. ABDOMINAL: Soft, nondistended, nontender, positive bowel sounds in all quadrants. : Deferred. MUSCULOSKELETAL: Normal tone, full range of motion, small joint effusion with overlying olecranon bursitis on the right elbow, full function of the radial, median and ulnar nerves of the right hand, cellulitic changes extending along the elbow into the forearm dorsally, neurovascularly intact distally. NEURO: Alert and oriented x3, CN II through XII intact, equal strength and sensation bilateral upper and lower extremities, no focal neurologic deficits. PSYCHIATRIC: Flat affect, fluid speech, good eye contact and appropriate demeanor. Vital Signs: Vital Signs: Last Vital Signs Temp 97.8 F 05/24/25 13:56 Pulse 80 05/24/25 13:56 Resp 16 05/24/25 13:56 BP 149/72 H 05/24/25 13:56 Pulse Ox 96 05/24/25 13:56 O2 Del Method Room Air 05/24/25 13:56 BMI result Body Mass Index 22.4 Course Course Course Narrative: This is a Rapid Medical Exam performed in triage by Marcela Suggs PA-C. Full HPI, ROS and PE to be performed by primary ED provider. 75 yo M w/PMHx HLD, anxiety, COPD, CAD, HTN, LBBB, BPH, presenting to the ED c/o atraumatic R elbow pain x few days. PE: +R elbow with bursitis with overlying erythema and warmth Plan: Labs Medications Administered Discontinued Medications Generic Name Dose Route Start Last Admin Trade Name Freq PRN Reason Stop Dose Admin Cephalexin HCl 500 mg 05/24/25 13:11 05/24/25 13:20 Cephalexin 500 Mg Capsule PO 05/24/25 13:12 500 mg ONCE ONE Administration Doxycycline Monohydrate 100 mg 05/24/25 13:11 05/24/25 13:20 Doxycycline Monohydrate 100 Mg Capsule PO 05/24/25 13:12 100 mg ONCE ONE Administration Medical Decision Making Medical Decision Making [facility] Narrative: Patient presents today with chief complaint of monoarticular joint pain in the right elbow. Differential diagnosis includes osteoarthritis, septic arthritis, rheumatoid arthritis, gouty arthritis, contusion, fracture, dislocation, among many others. Appropriate work-up was initiated based on physical exam and history. No indication for x-ray at this time. No evidence of acute traumatic injury causing arthritis or other emergent pathology today. His inflammatory markers are slightly elevated though I suspect his bursitis is mostly inflammatory rather than infectious given his normal white blood cell count and differential. He is afebrile at this time. Possible that his overlying cellulitis versus previous COVID-19 infection was giving him low-grade fevers. Certainly no evidence of sepsis. Patient is neurovascularly intact distally and stable for discharge home. Provided with antibiotics for overlying cellulitic changes in the elbow. Encouraged outpatient follow-up with PCP. Discussed return precautions at length. Patient understands agrees plan for discharge. Differential Diagnosis Differential Diagnoses: The differential diagnosis associated with the presentation includes (As above) Admission/Observation Consideration of admission/observation: Escalation of care including admission/observation considered Lab Data MDM Lab Attestation statement: I reviewed the patient's lab results. 05/24/25 12:26 05/24/25 12:26 Labs: Lab Results 05/24/25 Range/Units 12:26 WBC 5.9 (4.8-10.8) X10*3/uL RBC 4.90 (4.60-5.80) X10*6/uL Hgb 15.2 (14.0-18.0) g/dl Hct 44.3 (42.0-52.0) % MCV 90.4 (80.0-98.0) fL MCH 31.0 (27.0-33.0) pg MCHC 34.3 (31.0-36.0) g/dl RDW 12.4 (11.0-16.0) % Plt Count 168 (160-400) X10*3/uL MPV 9.2 L (9.4-12.4) fL Immature Gran % (Auto) 0.3 (0.0-0.4) % Neut % (Auto) 72.5 (45-73) % Lymph % (Auto) 18.5 L (20-40) % [place] % (Auto) 7.3 (2-11) % Eos % (Auto) 1.2 (0-4) % Baso % (Auto) 0.2 (0-2) % Lymph # (Auto) 1.1 L (1.2-4.9) X10*3/uL [place] # (Auto) 0.4 (0.1-1.2) X10*3/uL Eos # (Auto) 0.1 (0.0-0.4) X10*3/uL Baso # (Auto) 0.0 (0.0-0.2) X10*3/uL Abs Immat Gran (auto) 0.02 (0.00-0.03) X10*3/uL Absolute Neuts (auto) 4.3 (2.0-8.3) x10*3/uL Absolute Nucleated RBC 0.000 (0.0-0.012) X10*3/uL Nucleated RBC % (auto) 0.0 (0.0-0.2) /100WBC ESR 31 H (0-15) MM/HR Sodium 143 (135-145) mmol/L Potassium 4.7 (3.3-5.1) mmol/L Chloride 105 (96-108) mmol/L Carbon Dioxide 30 H (22-29) mmol/L Anion Gap 13 (12-20) BUN 18 H (9-16) mg/dL Creatinine 1.08 (0.5-1.4) mg/dL Estim Creat Clear Calc 57.5 Estimated GFR > 60 Random Glucose 108 (60-115) mg/dL Calcium 10.3 H D (8.4-10.2) mg/dL C-Reactive Protein 1.41 H (< or = 0.50) mg/dL Hold Red Top See Note Prescription Management I considered prescription management with: Antibiotic Discharge Plan Discharge Clinical Impression: Cellulitis of right elbow, Olecranon bursitis, right elbow Patient Disposition: Home, Self-Care Instructions: Cellulitis (ED), Elbow Bursitis (ED) Additional Instructions: Take your antibiotic as prescribed until the course is completed. Do not stop this medication early if you start to feel better. Return to the emergency department immediately with any new or worsening symptoms including: Worsening pain and swelling despite antibiotics, fevers greater than 100?, redness that tracks outside of the markings on your arm, inability to tolerate your antibiotic, any new symptom that concerns you. You may use topical pain medications as well as ice along the area to help with the pain and inflammation. Alternatively, use Tylenol as needed. Follow up with your primary care doctor as soon as possible. Return to the emergency department sooner as needed. Prescriptions: New doxycycline monohydrate 100 mg capsule 100 mg PO BID 7 Days Qty: 14 0RF cephalexin 500 mg capsule 500 mg PO BID 7 Days Qty: 14 0RF No Action loratadine 10 mg tablet 10 mg PO DAILY Qty: 90 1RF budesonide-formoterol [Symbicort] 160-4.5 mcg/actuation HFA aerosol inhaler 2 puff inhalation BID Qty: 10.2 5RF fluticasone furoate-vilanterol [Breo Ellipta] 100-25 mcg/dose blister with device 1 inh inhalation DAILY Qty: 60 4RF clonazepam 1 mg tablet 1 mg PO BEDTIME aspirin [Adult Low Dose Aspirin] 81 mg tablet,delayed release (DR/EC) 81 mg PO DAILY amlodipine-olmesartan 10-40 mg tablet 1 tab PO DAILY Qty: 90 3RF rosuvastatin 20 mg tablet 20 mg PO DAILY Qty: 90 3RF ezetimibe [Zetia] 10 mg tablet 10 mg PO DAILY Qty: 90 3RF Interventions: ED Discharge Assessment Last Done: 05/24/25 13:56 Discharge Date/Time: 05/24/25 13:57 Print Language: Swedish
[2025-05-24 11:54] VITALS: BP 149/72; PULSE 80; RESP 16; TEMP 36.6; O2SAT 96; BMI 22.4
[2025-05-24 12:29] LABS: MANUAL DIFF FLAG NO
[2025-05-24 12:31] LABS: Hematocrit 44.3 % (42.0-52.0); Hemoglobin 15.2 g/dl (14.0-18.0); Imm Gran Abs Auto 0.02 X10*3/uL (0.00-0.03); Imm Gran Pct Auto 0.3 % (0.0-0.4); Lymphocytes Absolute Auto 1.1 X10*3/uL (1.2-4.9); Mean Corpuscular HGB Conc 34.3 g/dl (31.0-36.0); Mean Corpuscular Hemoglobin 31.0 pg (27.0-33.0); Mean Corpuscular Volume 90.4 fL (80.0-98.0); NRBC Abs Auto 0.000 X10*3/uL (0.0-0.012); NRBC Pct Auto 0.0 /100WBC (0.0-0.2); Platelet Count 168 X10*3/uL (160-400); Red Blood Count 4.90 X10*6/uL (4.60-5.80); White Blood Count 5.9 X10*3/uL (4.8-10.8)
[2025-05-24 12:42] LABS: Anion Gap 13 (12-20); Blood Urea Nitrogen 18 mg/dL (9-16); Calcium 10.3 mg/dL (8.4-10.2); Carbon Dioxide 30 mmol/L (22-29); Chloride 105 mmol/L (96-108); Creatinine Clr Calc Pharmacy 57.5; Estimated Glomerular Filt Rate > 60; Potassium 4.7 mmol/L (3.3-5.1); Sodium 143 mmol/L (135-145)
[2025-05-24 13:07] LABS: Erythrocyte Sedimentation Rate 31 MM/HR (0-15)
--- OUTSIDE RECORDS SUMMARY | 2025-05-24 13:20 | XMS_ITS | Clinical Summary ---
Author Organization [facility] Address [facility] [address] [address] Phone Care Team Providers Care Rn Visiting Name Role Phone Marleni Karimi MD Primary Care Provider [phone] Allergies No known active allergies Medications amLODIPine-olmes svetlana (THAI) 5-20 mg per tablet Take 1 tablet by mouth daily. 10/08/2020 Active aspirin 81 MG EC tablet Take 81 mg by mouth. 10/05/2019 Active budesonide-formo terol (SYMBICORT) 160-4.5 mcg/actuation inhaler Inhale into the lungs. 11/11/2019 Active SYMBICORT 160-4.5 mcg/actuation inhaler Inhale 2 puffs into the lungs 2 (two) times a day. 11/23/2020 Active gabapentin (NEURONTIN) 300 MG capsule Take 1 capsule (300 mg total) by mouth nightly at bedtime. 30 capsule 10 01/15/2021 Active clonazePAM (KLONOPIN) 1 MG tabletIndication s:Insomnia, unspecified type,RLS (restless legs syndrome) Take 1 tablet (1 mg total) by mouth nightly at bedtime. 30 tablet 5 05/05/2022 Active Social History Tobacco Use Types Packs/Day Years Used Date Smoking Tobacco: Never Assessed Education Answer Date Recorded Are you interested in more education? Not on rosario e 11/20/2022 Are you concerned about learning? Not on file 11/20/2022 No 11/20/2022 No 11/20/2022 Digital Access Answer Date Recorded No 12/17/2022 No 12/17/2022 No 12/17/2022 Reliable internet access at home? Not on file 12/17/2022 Device with a working camera? Not on file Sex and Gender Information Value Date Recorded Sex Assigned at Male 02/04/2020 6:35 PM EDT Legal Sex Male 5:09 PM EST Gender Identity Male 02/04/2020 6:35 PM EDT Sexual Orientation Straight 06/14/2021 11 :28 AM EST Last Filed Vital Signs Vital Sign Reading Time Taken Comments Blood Pressure 134/69 01/15/2021 2:50 PM EDT Pulse 65 01/15/2021 2:50 PM EDT Temperature 36.2 C (97.2 F) 01/15/2021 2:50 PM EDT Respiratory Rate - - Oxygen Saturation 99% 01/15/2021 2:50 PM EDT Inhaled Oxygen Concentration - - Weight 67.6 kg (149 lb) 01/15/2021 2:50 PM EDT Height 171.5 cm (5' 7.5 ) 01/15/2021 2:50 PM EDT Body Mass Index 22.99 01/15/2021 2:50 PM EDT Plan of Treatment Health Maintenance Due Date Last Done Comments DEPRESSION SCREENING 1964 SMOKING Hx and SMOKELESS TOBACCO SCREENING 1965 HEPATITIS C SCREENING 1970 COLOGUARD 1997 COLONOSCOPY 1997 COLORECTAL CANCER SCREENING 1997 FIT TEST 1997 FOBT 1997 SIGMOIDOSCOPY 1997 VIRTUAL COLONOSCOPY 1997 PNEUMOCOCCAL VACCINES (50+ years) (1 of 1 - PCV) 2002 ZOSTER VACCINES (1 of 2) 2002 LIPID PANEL 11/10/2015 11/09/2010 INFLUENZA VACCINE (#1) 2025 05/16/2016 COVID-19 VACCINE (3 - 2024-2 6 season) 2025 09/22/2020, 09/01/2020 Adult Td,Tdap Booster 02/20/2027 02/20/2017 RSV VACCINE (1 - 1-dose 75+ series) 2027 HEPATITIS A VACCINES Aged Out No long er eligible based on patient's age to complete this topic HIB VACCINES Aged Out No longer eligi ble based on patient's age to complete this topic MENINGOCOCCAL VACCINES (ACWY) Aged Out No longer eligible based on patient's age to complete this topic MENINGOCOCCAL VACCINES (B) Aged Out N o longer eligible based on patient's age to complete this topic Medical Devices Not on file Procedures Procedure Name Priority Date/Time Associated Diagnosis Comments HISTORICAL LAB Routine 11/09/2010 11:40 AM EDT from Last 3 Months or Most Recently Relevant to Health Maintenance Results * Historical Lab (11/09/2010 11:40 AM EDT) Plasma Sodium 143 135 - 145 mmol/L [facility] Plasma Potassium 3.7 3.4 - 4.8 mmol/L [facility] Plasma Chloride 104 100 - 108 mmol/L [facility] Plasma Carbon Dioxide 28.3 23.0 - 31.9 mmol/L [facility] Plasma Urea Nitrogen 11 8 - 25 mg/dl [facility] Plasma Creatinine 0.94 0.60 - 1.50 mg/dl [facility] Plasma Glucose 78 70 - 110 mg/dl [facility] Calcium 9.6 8.5 - 10.5 mg/dl [facility] eGFR >60 mL/min/1. 73m2 [facility] Comment: Abnormal if <60 mL/min/1.73m2. If patient is -[place], multiply the result by 1.21. Plasma Anion GAP 11 3 - 15 mmol/L [facility] High Density Lipoprotein 53 35 - 100 mg/dl [facility] Cholesterol 186 mg/dl [facility] Comment:DESIRABLE: <200 Triglycerides 129 40 - 150 mg/dl [facility] Low Density Lipoprotein 107 mg/dl [facility] Comment:DESIRABLE: <130 Cardiac Risk Ratio 3.5 [facility] Comment:NORMAL RISK RATIO: 5 .0 OR LESS T1-TSH 0.72 0.40 - 5.00 uU/ml [facility] 11/09/2010 11:4 0 AM EDT 11/09/2010 3:30 PM EDT Comment:BLD UR us Bhupendra Paredes MD LAB BLOOD ORDERABLES F inal Result [facility] [address] [place] [address] from Last 3 Months or Most Recently Relevant to Health Maintenance Insurance [facility] MEDICARE PPO BL[place]AC[place] [facility] MEDICARE [place]PO [place] RE[place] [facility] MEDICARE PPO BLUE REPLACEMENT [address] [place], [place] [address]HEALTH [facility] MEDICARE PPO BL[place] [address] [place] [address] [place]IC[place] [facility] MEDICARE PPO BLUE [place]PLAC[place] [address] [facility] MEDICARE [facility]PO BL[facility] RE[facility] [place] [facility] [facility]UE REPLACEMENT [facility] Care Teams Rn Visiting Relationship Specialty Start Date End Date Marleni Karimi MD [address] [place], [place] [id number] PCP - General Internal Medicine 01/21/20 Additional Source Comments The information contained in this document represents components of the legal health record. It is not the complete legal health record.[facility]
--- OUTSIDE RECORDS SUMMARY | 2025-05-24 13:20 | XMS_ITS | Patient Health Record ---
Author Organization [facility] Address [address] [place] [address] Care Team Providers Care Inspector Balance Wheel Motion Name Role Phone Marleni Karimi MD Primary Care Provider Santino Freitas [phone] Allergies No Known Allergies Reason For Referral No Information Medications Medication SIG (Take, Route, Fr equency, Duration) Notes Start Date End Date Status Aspirin 81 Active Omeprazole 20 MG 1 Orally Every morni ng; Duration: 90 days 05/09/2023 Active Crestor 20 MG 1 tablet Orally Once a day; Duration: 30 day(s) Active Delbert 5-20 MG 1 tablet Orally Once a day; Duration: 30 day(s) Active clonazePAM 1 MG Oral; Duration: 30 Active Omeprazole 40 MG 1 capsule Orally Onc e a day; Duration: 30 day(s) Active Omeprazole 20 MG TAKE 1 CAPSULE BY [facility] EVERY DAY IN THE MORNING; Duration: 30 Act mimi Symbicort Active Immunizations Vaccine Route Administration Date [...] Problem Status W/U Status Risk Notes Problem Screening for malignant neoplasm of colon (003705942) Encounter for screening for malignant neoplasm of colon (Z12.11) Active confirmed Problem Acute gastric ulcer without hemorrhage, without perforation AND without obstruction (81968930) Acute gastric ulcer without hemorrhage or perforation (K25.3) Active confirmed Problem Duodenitis (82932669) Duodenitis (K29.80) Active confirmed Problem Family History of Cancer of Colon (Situation) (525543855) Family history of colon cancer (Z80.0) Active confirmed Problem Esophageal stricture (16805515) Esophageal stricture (K22.2) Active confirmed Problem Erosive esophagitis (42701350) Erosive esophagitis (K22.10) Active confirmed Problem Gastritis (7437372) Gastritis (K29.70) Active confirmed Problem Gastric ulcer (934700010) Gastric ulcer (K25.9) Active confirmed Problem Diverticulosis of colon (741683665) Diverticulosis of colon (K57.30) Active confirmed Problem Esophageal dysphagia (91326499) Esophageal dysphagia (R13.19) Active confirmed Plan Of Treatment Future Test Test Name Order Date UPPER GI ENDOSCOPY [place] DILATION OF ESOPH 08/10/2021 COLONOSCOPY 08/10/2021 Insurance Providers Payer Name Payer Address Payer Phone Subscriber Number Group Number Insured Name Patient Relationship to Insured Coverage Start Date Coverage End Date [facility] [address] [place] [address] [phone] [id number] HUMPHREY MIKE Self - patient is the insured [place] [address] [place] [address] [id number] HUMPHREY MIKE Self - patient is the insured Medical (General) History Medical History History ICD Code MN and a coronary artery stent placed in [...]
[2025-05-24 13:56] VITALS: BP 149/72; PULSE 80; RESP 16; TEMP 36.6; O2SAT 96
== END 2025-05-24 13:57 | disposition home or self-care (01) ==
PROVIDERS: Physician Assistant; Emergency Provider Emergency Medicine; PCP Internal Medicine
DX: L03.113 Cellulitis of right upper limb (principal); M70.21 Olecranon bursitis, right elbow; I10 Essential (primary) hypertension; I25.10 Atherosclerotic heart disease of native coronary artery without angina pectoris; R50.9 Fever, unspecified; Z79.899 Other long term (current) drug therapy
CPT/HCPCS: 36415; 80048; 85025; 85652; 86140; 99282; 99283

== ENCOUNTER 2025-05-27 07:59 | Emergency (ER) | payer MEDICARE, MEDICAID, SELFPAY ==
--- NOTE | ~2025-05-27 | XR_ITS ---
EXAMINATION: XR ELBOW, RIGHT CLINICAL INFORMATION: bursitis, pain swelling COMPARISON: None available. TECHNIQUE: AP, lateral, and oblique views of the right elbow. FINDINGS: No fracture, dislocation, or suspicious bone lesion. Normal bone mineralization. Normal alignment. Joint spaces are preserved. No significant arthropathy. The epicondyles appear normal. No evidence of elbow joint effusion. Soft tissue swelling surrounding the olecranon, in keeping with olecranon bursitis. XR/XR elbow RT 2V IMPRESSION: 1. No acute bony abnormalities. No joint effusion. 2. Soft tissue swelling surrounding the olecranon process in keeping with olecranon bursitis. Electronically signed by: Donovan Anderson MD 05/27/2025 09:02 AM [facility]
[2025-05-27 08:04] VITALS: BP 166/77; PULSE 75; RESP 18; TEMP 36.3; O2SAT 97; BMI 22.6
--- NOTE | 2025-05-27 08:13 | ED.GENADULT ---
HPI - General Adult General Chief complaint: General Medical Stated complaint: seen 05/24, told to come back if worse Time Seen by Provider: 05/27/25 08:11 Source: patient and RN notes reviewed Mode of arrival: ambulatory Limitations: no limitations History of Present Illness ED Provider: Claudia Martinez PA-C HPI narrative: This is a 75-year-old male, with a past medical history of hyperlipidemia, anxiety, COPD, CAD, hypertension, left bundle-branch block, BPH, who presents emergency department with concerns of right elbow pain. Patient reports that about 1 week ago he noticed pain, redness, and swelling overlying his right elbow. Patient was seen here on May 24 where he was diagnosed with elbow bursitis and started on doxycycline and Keflex. He was advised to return if symptoms have not improved. He states that he has been taking the antibiotics however reports that he still has swelling. He states that he feels as though the swelling has worsened. He also endorses low grade fevers at home - reporting around 99 degrees. He otherwise denies any chest pain, shortness of breath, abdominal pain, nausea, vomiting or diarrhea. No other complaints or concerns at this time. MD complaint: Right elbow redness, swelling Location: upper extremity Quality: aching Relieving factors: none Exacerbating factors: none Associated symptoms: denies other symptoms Treatments prior to arrival: none Related Data Home Medications ?Medication ?Instructions ?Recorded ?Confirmed aspirin 81 mg tablet,delayed 81 mg PO DAILY 05/07/20 05/14/25 release (Adult Low Dose Aspirin) clonazepam 1 mg tablet 1 mg PO BEDTIME 08/19/21 05/14/25 Previous Rx's ?Medication ?Instructions ?Recorded loratadine 10 mg tablet 10 mg PO DAILY #90 tabs 04/12/24 amlodipine 10 mg-olmesartan 40 mg 1 tab PO DAILY #90 tabs 12/19/24 tablet ezetimibe 10 mg tablet (Zetia) 10 mg PO DAILY #90 tabs 12/19/24 rosuvastatin 20 mg tablet 20 mg PO DAILY #90 tabs 12/19/24 Breo Ellipta 100 mcg-25 mcg/dose 1 inh inhalation DAILY #60 ea 01/02/25 powder for inhalation (fluticasone furoate-vilanterol) budesonide-formoterol HFA 160 2 puff inhalation BID #10.2 grams 01/02/25 mcg-4.5 mcg/actuation aerosol inhaler (Symbicort) cephalexin 500 mg capsule 500 mg PO BID 7 days #14 caps 05/24/25 doxycycline monohydrate 100 mg 100 mg PO BID 7 days #14 caps 05/24/25 capsule Allergies Allergy/AdvReac Type Severity Reaction Status Date / Time atropine (ATROPINE) Allergy Unknown SEIZURE Verified 05/27/25 08:08 Review of Systems Review of Systems: Constitutional : No Fever, No Chills ENT/Mouth : No sore throat, No Rhinorrhea Eyes: No Eye Pain, No Swelling, No Redness Cardiovascular : No Chest Pain, No SOB Respiratory : No Cough, No Sputum Gastrointestinal : No Nausea, No Vomiting, No Diarrhea, No abdominal Pain Genitourinary : No Dysuria, No Hematuria Musculoskeletal : + joint pain, No Myalgias, + Joint Swelling Skin : No Skin Lesions Neuro : No Weakness, No Numbness, No Headache All other systems reviewed and are negative Yes all other systems are reviewed and are negative Constitutional: Constitutional: Reports as per HPI ON LICENSE OF [facility] Past Medical History Medical History COVID-19 vaccine series completed HTN (hypertension) COPD (chronic obstructive pulmonary disease) Esophageal stricture Insomnia Hyperlipidemia Anxiety Coronary artery disease Stable angina Hypertension Surgical History History of coronary artery stent placement H/O colonoscopy History of esophagogastroduodenoscopy (EGD) Family History Family History Father Colon cancer Mother Cancer Paternal Grandfather Cancer Social History Social History Housing: House Are you a primary patient care coordinator to a significant other at home: No Do you presently have visiting nurse or other home services: No Patient Tobacco Use Status: Never used Tobacco e-Cigarette/Vaping Use: Never Used service: No Current occupational status: retired Cognitive needs: No Hearing needs: No Vision needs: Yes Physical Exam ED Vital Signs: Vital Signs - 24 hr 05/27/25 11:34 Temperature 97.9 F Pulse Rate 77 Respiratory Rate 16 Blood Pressure 156/78 H Pulse Oximetry 98 Oxygen Delivery Method Room Air BMI result Body Mass Index 22.6 Const General: cooperative, comfortable and no acute distress Orientation/consciousness: patient oriented x3 Limitations: no limitations HENMT Head: Yes normal to inspection, Yes normocephalic and Yes atraumatic Ears: hearing grossly normal bilaterally General nose exam: Normal external nose present Face and sinus: Yes normal facial exam Mouth: Normal oral and palatal mucosa present, oropharynx normal and moist mucous membranes Throat: Yes posterior oropharynx normal Eyes General: appearance normal, both eyes and all related structures Eyelids: Yes eyelids normal Conjunctivae: conjunctivae normal Sclerae: sclerae normal Pupils: Equal, round and reactive pupils present EOM: EOMs intact bilaterally Neck Neck: Yes normal visual inspection, Yes full ROM and Yes no lymphadenopathy Lymphatic: no lymphadenopathy noted Chest Chest palpation & inspection: normal inspection of the chest Resp Effort & Inspection: normal respiratory effort and able to speak in complete sentences Auscultation: clear to auscultation bilaterally, no crackles, no rales, no rhonchi and no wheezes Cardio Rate: regular rate Rhythm: regular rhythm Heart sounds: S1 normal heart sound present and S2 normal heart sound present GI Inspection: Yes normal to inspection Skin General skin exam: no rashes or lesions noted Trauma: no lacerations or abrasions Wounds: no wounds Neuro General: patient oriented x3 and moves all extremities Cranial nerves: Yes Equal, round and reactive pupils present Extrem Other: Right elbow with overlying joint effusion noted with erythema and warmth. Tender to palpation. He has full range of motion of the elbow without difficulty. Strong radial pulse. General: Yes normal to inspection Left upper extremity: normal to inspection Right lower extremity: normal to inspection Left lower extremity: normal to inspection Medical Decision Making Medical Decision Making [facility] Narrative: This is a 75-year-old male, with a past medical history of hyperlipidemia, anxiety, COPD, CAD, hypertension, left bundle-branch block, BPH, who presents emergency department with concerns of right elbow pain. On arrival, blood pressure slightly elevated 166/77, all other vital signs within normal limits. Patient has been on Keflex and doxycycline however notes no significant improvement despite having this for 3 days. Reporting increased swelling, and reported fevers. Differential diagnoses include osteoarthritis, septic arthritis, rheumatoid arthritis, gouty arthritis, fracture, dislocation. Will obtain labs, and x-ray. 10:44 AM 05/27/2025 (Claudia Martinez PA-C): Labs returned, no leukocytosis, stable H&H, chemistry revealing no significant electrolyte derangement. He does have an elevated CRP at 2.78 and ESR at 50, this is an increase from previous CRP and ESR on 05/24 which were 1.41 and 50 respectively. xray of the elbow revealing soft tissue sweling surrounding the olecranon process in keeping with olecranon bursitis. Of note - pt admits that yesterday he played ping pong which may have irritated this area - advised to d/c until symptoms resolve. Discussed with attending, recommending continuing on ABX, will wrap with mike wrap. Encouraged to return with any new or worsening symptoms. Pt stable for d.c Differential Diagnosis Differential Diagnoses: The differential diagnosis associated with the presentation includes See above Lab Data [facility] Lab Attestation statement: I reviewed the patient's lab results. See MDM 05/27/25 08:48 05/27/25 08:48 Labs: Lab Results 05/27/25 Range/Units 08:48 WBC 5.0 (4.8-10.8) X10*3/uL RBC 4.73 (4.60-5.80) X10*6/uL Hgb 14.6 (14.0-18.0) g/dl Hct 42.9 (42.0-52.0) % MCV 90.7 (80.0-98.0) fL MCH 30.9 (27.0-33.0) pg MCHC 34.0 (31.0-36.0) g/dl RDW 12.0 (11.0-16.0) % Plt Count 200 (160-400) X10*3/uL MPV 8.9 L (9.4-12.4) fL Immature Gran % (Auto) 0.4 (0.0-0.4) % Neut % (Auto) 67.7 (45-73) % Lymph % (Auto) 20.4 (20-40) % [place] % (Auto) 9.1 (2-11) % Eos % (Auto) 2.2 (0-4) % Baso % (Auto) 0.2 (0-2) % Lymph # (Auto) 1.0 L (1.2-4.9) X10*3/uL [place] # (Auto) 0.5 (0.1-1.2) X10*3/uL Eos # (Auto) 0.1 (0.0-0.4) X10*3/uL Baso # (Auto) 0.0 (0.0-0.2) X10*3/uL Abs Immat Gran (auto) 0.02 (0.00-0.03) X10*3/uL Absolute Neuts (auto) 3.4 (2.0-8.3) x10*3/uL Absolute Nucleated RBC 0.000 (0.0-0.012) X10*3/uL Nucleated RBC % (auto) 0.0 (0.0-0.2) /100WBC ESR 50 H (0-15) MM/HR Sodium 142 (135-145) mmol/L Potassium 4.0 (3.3-5.1) mmol/L Chloride 106 (96-108) mmol/L Carbon Dioxide 29 (22-29) mmol/L Anion Gap 11 L (12-20) BUN 14 (9-16) mg/dL Creatinine 1.06 (0.5-1.4) mg/dL Estim Creat Clear Calc 59.1 Estimated GFR > 60 Random Glucose 97 (60-115) mg/dL Calcium 10.0 (8.4-10.2) mg/dL Total Bilirubin 1.1 H (0.0-1.0) mg/dL Direct Bilirubin 0.4 (0.0-0.5) mg/dL AST 30 (5-37) U/L ALT 29 (0-40) U/L Alkaline Phosphatase 54 (39-117) U/L C-Reactive Protein 2.78 H (< or = 0.50) mg/dL Total Protein 8.2 H (6.5-8.0) g/dL Albumin 4.7 (3.5-5.0) g/dL Hold Red Top See Note Radiology Impression Discussion of test interpretation with radiology: I have reviewed the radiologist's reading. Radiologist Impression: FINDINGS: No fracture, dislocation, or suspicious bone lesion. Normal bone mineralization. Normal alignment. Joint spaces are preserved. No significant arthropathy. The epicondyles appear normal. No evidence of elbow joint effusion. Soft tissue swelling surrounding the olecranon, in keeping with olecranon bursitis. XR/XR elbow RT 2V IMPRESSION: 1. No acute bony abnormalities. No joint effusion. 2. Soft tissue swelling surrounding the olecranon process in keeping with olecranon bursitis. Electronically signed by: Donovan Anderson MD 05/27/2025 09:02 AM [facility] Dictated By: Donovan Anderson MD Discharge Plan Discharge Clinical Impression: Bursitis Patient Disposition: Home, Self-Care Instructions: Elbow Bursitis (ED) Additional Instructions: You were seen in the ER due to right elbow swelling. Bursitis?is the painful inflammation of small, fluid-filled sacs that cushion the bones, tendons and muscles near your joints. Continue taking antibiotics as prescribed. Finish the entire course even if your symptoms improve. Use Mike wrap for compression to help allow for re-absorption of the fluid. Return to the emergency department immediately with any new or worsening symptoms including: Worsening pain and swelling despite antibiotics, fevers greater than 100?, increased redness, inability to tolerate your antibiotic, any new symptom that concerns you. Prescriptions: No Action loratadine 10 mg tablet 10 mg PO DAILY Qty: 90 1RF budesonide-formoterol [Symbicort] 160-4.5 mcg/actuation HFA aerosol inhaler 2 puff inhalation BID Qty: 10.2 5RF fluticasone furoate-vilanterol [Breo Ellipta] 100-25 mcg/dose blister with device 1 inh inhalation DAILY Qty: 60 4RF doxycycline monohydrate 100 mg capsule 100 mg PO BID 7 Days Qty: 14 0RF cephalexin 500 mg capsule 500 mg PO BID 7 Days Qty: 14 0RF clonazepam 1 mg tablet 1 mg PO BEDTIME aspirin [Adult Low Dose Aspirin] 81 mg tablet,delayed release (DR/EC) 81 mg PO DAILY amlodipine-olmesartan 10-40 mg tablet 1 tab PO DAILY Qty: 90 3RF rosuvastatin 20 mg tablet 20 mg PO DAILY Qty: 90 3RF ezetimibe [Zetia] 10 mg tablet 10 mg PO DAILY Qty: 90 3RF Interventions: ED Discharge Assessment Last Done: 05/27/25 11:34 Discharge Date/Time: 05/27/25 11:35 Print Language: Uzbek
--- OUTSIDE RECORDS SUMMARY | 2025-05-27 08:31 | XMS_ITS | Patient Health Record ---
Author Organization [facility] Address [address] [place] [address] Care Team Providers Care Apartment House Manager Name Role Phone Marleni Karimi MD Primary Care Provider Santino Freitas [phone] Allergies No Known Allergies Reason For Referral [...] Omeprazole 20 MG TAKE 1 CAPSULE BY [facility] EVERY DAY IN THE MORNING; Duration: 30 [...] Problem Screening for malignant neoplasm of colon (213162124) Encounter for screening for malignant neoplasm of colon (Z12.11) Active confirmed Problem Acute gastric ulcer without hemorrhage, without perforation AND without obstruction (47978279) Acute gastric ulcer without hemorrhage or perforation (K25.3) Active confirmed Problem Duodenitis (73020833) Duodenitis (K29.80) Active confirmed Problem Family History of Cancer of Colon (Situation) (494217793) Family history of colon cancer (Z80.0) Active confirmed Problem Esophageal stricture (80353934) Esophageal stricture (K22.2) Active confirmed Problem Erosive esophagitis (06582443) Erosive esophagitis (K22.10) Active confirmed Problem Gastritis (9503923) Gastritis (K29.70) Active confirmed Problem Gastric ulcer (707246605) Gastric ulcer (K25.9) Active confirmed Problem Diverticulosis of colon (936341300) Diverticulosis of colon (K57.30) Active confirmed Problem Esophageal dysphagia (07228222) Esophageal dysphagia (R13.19) Active confirmed Plan Of Treatment Future Test Test Name Order Date UPPER GI ENDOSCOPY BALL[place]ON DILATION OF ESOPH 08/10/2021 COLONOSCOPY 08/10/2021 Insurance Providers Payer Name Payer Address Payer Phone Subscriber Number Group Number Insured Name Patient Relationship to Insured Coverage Start Date Coverage End Date [facility] [address] [place] [address] [phone] [id number] [employer]KE Self - patient is the insured [place] [address] [place] [address] [id number] [employer] MIKE Self - patient is the insured Medical (General) History Medical History History ICD Code [place] and a coronary artery stent placed in [...]
--- NOTE | 2025-05-27 08:32 | PC.NURSE ---
patient a&ox3, vss, pt c/o 08/02 lt elbow pain, labs to be drawn by tech/ pt awaiting radiology, call lew within reach, plan of care ongoing
[2025-05-27 09:02] LABS: MANUAL DIFF FLAG NO
[2025-05-27 09:05] LABS: Hematocrit 42.9 % (42.0-52.0); Hemoglobin 14.6 g/dl (14.0-18.0); Imm Gran Abs Auto 0.02 X10*3/uL (0.00-0.03); Imm Gran Pct Auto 0.4 % (0.0-0.4); Lymphocytes Absolute Auto 1.0 X10*3/uL (1.2-4.9); Mean Corpuscular HGB Conc 34.0 g/dl (31.0-36.0); Mean Corpuscular Hemoglobin 30.9 pg (27.0-33.0); Mean Corpuscular Volume 90.7 fL (80.0-98.0); NRBC Abs Auto 0.000 X10*3/uL (0.0-0.012); NRBC Pct Auto 0.0 /100WBC (0.0-0.2); Platelet Count 200 X10*3/uL (160-400); Red Blood Count 4.73 X10*6/uL (4.60-5.80); White Blood Count 5.0 X10*3/uL (4.8-10.8)
[2025-05-27 09:19] LABS: Alanine Aminotransferase 29 U/L (0-40); Albumin Level 4.7 g/dL (3.5-5.0); Alkaline Phosphatase 54 U/L (39-117); Anion Gap 11 (12-20); Aspartate Amino Transferase 30 U/L (5-37); Blood Urea Nitrogen 14 mg/dL (9-16); Calcium 10.0 mg/dL (8.4-10.2); Carbon Dioxide 29 mmol/L (22-29); Chloride 106 mmol/L (96-108); Creatinine Clr Calc Pharmacy 59.1; Estimated Glomerular Filt Rate > 60; Potassium 4.0 mmol/L (3.3-5.1); Sodium 142 mmol/L (135-145); Total Protein 8.2 g/dL (6.5-8.0)
[2025-05-27 09:43] LABS: Erythrocyte Sedimentation Rate 50 MM/HR (0-15)
[2025-05-27 11:34] VITALS: BP 156/78; PULSE 77; RESP 16; TEMP 36.6; O2SAT 98
== END 2025-05-27 11:35 | disposition home or self-care (01) ==
PROVIDERS: Physician Assistant Medical; Emergency Provider Emergency Medicine; PCP Internal Medicine
DX: M70.31 Other bursitis of elbow, right elbow (principal); Y93.73 Activity, racquet and hand sports; I10 Essential (primary) hypertension; J44.9 Chronic obstructive pulmonary disease, unspecified; Z88.8 Allergy status to other drugs, medicaments and biological substances
CPT/HCPCS: 36415; 73070; 80048; 80076; 85025; 85652; 86140; 87040; 99283; 99284

== ENCOUNTER → 2025-05-27 08:26 | Outpatient (BNV) | payer MEDICARE, MEDICAID, SELFPAY | PROVIDERS: Emergency Provider Emergency Medicine; PCP Internal Medicine; Visit Provider Radiology Diagnostic Radiology | DX: M70.31 Other bursitis of elbow, right elbow (principal) | CPT/HCPCS: 73070 ==